=== PATIENT | male | born 1950 | race Caucasian/White ===

== ENCOUNTER 2019-05-29 07:01 | Outpatient (CLI) | payer MEDICARE, OTHER, SELFPAY ==
--- NOTE | 2019-05-29 | ECG_ITS ---
Measurements Intervals [place] Rate: 62 P: 5 [place]: 203 QRS: -7 QRSD: 101 T: 30 QT: 376 QTc: 385 Interpretive Statements SINUS RHYTHM NORMAL ECG Electronically Signed On 05-29-2019 9:27:18 MEDICAL INFORMATION OFFICER by Riley Gonzalez D.O.
[2019-05-29 07:45] LABS: Blood Urea Nitrogen 15 mg/dL (9-20); Carbon Dioxide 26 mmol/L (22-30); Chloride 98 mmol/L (98-107); Estimated Glomerular Filt Rate > 60; Glucose 103 mg/dL (75-110); Potassium 4.5 mmol/L (3.4-5.0); Sodium 134 mmol/L (137-145)
== END 2019-05-29 07:02 | disposition home or self-care (01) ==
PROVIDERS: PCP Family Medicine; Visit Provider Surgery Plastic and Reconstructive Surgery
DX: I10 Essential (primary) hypertension (principal)
CPT/HCPCS: 36415; 80048; 93005

== ENCOUNTER 2020-12-25 08:38 | Outpatient (CLI) | payer MEDICARE, OTHER, SELFPAY ==
--- NOTE | ~2020-12-25 | XR_ITS ---
XR hip BI wo pelvis DATE: 12/25/2020 09:01 INDICATION: Bilateral hip pain for 6 months TECHNIQUE: AP and lateral views of each hip COMPARISON: None FINDINGS: There is moderate spurring of both femoral heads consistent with moderate bilateral hip ost eoarthritis. No fracture, dislocation, avascular necrosis or bone destruction is detected. IMPRESSION: Moderate bilateral hip osteoarthritis Reviewed, dictated and finalized at location B.
== END 2020-12-25 08:39 | disposition home or self-care (01) ==
LOC: ANHIMG 08:44
PROVIDERS: PCP Family Medicine; Visit Provider Family Medicine
DX: M16.0 Bilateral primary osteoarthritis of hip (principal)
CPT/HCPCS: 73521

== ENCOUNTER 2021-08-01 01:30 | Day surgery (SDC) | payer MEDICARE, OTHER, SELFPAY ==
[2021-07-18 12:55] VITALS: BMI 27.1
[2021-08-01 11:33] VITALS: BP 155/75; PULSE 79; RESP 18; TEMP 35.9; O2SAT 98; BMI 42.9
--- NOTE | 2021-08-01 11:47 | WPDANESEPPF ---
Anes - Initial Pre Proc Eval Procedure: Operation Date: 08/01/21 13:00 Proposed Procedures p Screening Colonoscopy - Elton Mosley MD Date/Time: 08/01/21 11:47 Surgeon: Elton Mosley MD Pre Op Diagnosis: hx of colon polyps Patient Data Age: 70 Gender: M Height: 1.83 m Weight: 91 kg Allergies Allergy/AdvReac Type Severity Reaction Status Date / Time No Known Allergies Allergy Verified 08/01/21 11:54 Home Medications Medication Instructions Recorded Confirmed Type aspirin 81 mg tablet,delayed 81 mg PO DAILY 02/24/19 07/18/21 History release lisinopril 20 1 tablet PO DAILY #90 tablet 10/09/20 07/18/21 Rx mg-hydrochlorothiazide 25 mg tablet gabapentin 300 mg capsule 300 mg PO QID #120 cap 10/17/20 07/18/21 Rx atenolol 25 mg tablet See Rx Instructions .ROUTE 04/16/21 07/18/21 Rx .COMPLEX #90 tablet atorvastatin 40 mg tablet See Rx Instructions .ROUTE 04/16/21 07/18/21 Rx .COMPLEX #90 tablet fenofibrate 160 mg tablet See Rx Instructions .ROUTE 04/16/21 07/18/21 Rx .COMPLEX #90 tablet loratadine 10 mg tablet See Rx Instructions .ROUTE 04/16/21 07/18/21 Rx .COMPLEX #90 tablet naproxen 500 mg tablet See Rx Instructions .ROUTE 04/16/21 07/18/21 Rx .COMPLEX #180 tablet zolpidem 10 mg tablet 10 mg PO .qhs #30 tablet 07/16/21 07/18/21 Rx hydrochlorothiazide 25 mg PO DAILY 07/18/21 07/18/21 History Patient hx anesthesia problems: none Family hx anesthesia problems: none Results Review: All pre-operative results and documents have been reviewed as part of the pre-operative evaluation. [facility] Past Medical History Medical History Bilateral carpal tunnel syndrome Chronic insomnia Chronic right-sided low back pain with right-sided sciatica Essential (primary) hypertension Ganglion cyst of finger History of rectal polyps IFG (impaired fasting glucose) Metabolic syndrome Mixed hyperlipidemia Obesity BRITTANI (obstructive sleep apnea) Osteoarthritis of left knee Surgical History Surgical History History of hand surgery History of retinal tear Status post arthroscopy of right knee (~01/07/14) Family History Family History Father Hypertension Family history of malignant neoplasm Mother Hypertension Family history of malignant neoplasm Social History Social History Social History: Smoking status: Never smoker Second hand tobacco smoke exposure: No Alcohol intake: never Substance use: never Substance use type: does not use Living arrangements: with family Gender identity (if verbalized by the patient): Male Sexual Orientation (if Verbalized by the Patient): Straight or Heterosexual 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: No Anes - Eval Final PreProcedure Day of Procedure 08/01/21 11:47 Patient weight: overweight Heart: regular rate and rhythm Lungs: clear to auscultation and normal air movement Airway: Mallampati scale class II Neurological: alert and oriented Last oral intake: >/= 8 hours ASA classification: III Emergent: no Anesthetic plan: proceed Anesthesia type and monitoring: general GIVS and standard monitoring Results Review: All pre-operative results and documents have been reviewed as part of the pre-operative evaluation. Informed Consent: The patient's anesthetic plan and its attendant risks and benefits were discussed with the patient/family/POA. Questions were solicited and answers provided to the satisfaction of the patient/family/POA.
--- NOTE | 2021-08-01 11:55 | PM.HPGS ---
History of Present Illness History of Present Illness Consent: Risks, benefits, and alternatives have been discussed and questions answered. Patient agrees to proceed with procedure. Chief complaint: hx of colon polyps Narrative: Rickey Joshi is a 70 year old male Here for colon cancer screening. He had a tubular adenoma removed about 5 years ago. Review of Systems Review of Systems: All systems reviewed & are unremarkable except as noted in HPI and below PMFSH Past Medical History Medical History Bilateral carpal tunnel syndrome Chronic insomnia Chronic right-sided low back pain with right-sided sciatica Essential (primary) hypertension Ganglion cyst of finger History of rectal polyps IFG (impaired fasting glucose) Metabolic syndrome Mixed hyperlipidemia Obesity BRITTANI (obstructive sleep apnea) Osteoarthritis of left knee Surgical History Surgical History History of hand surgery History of retinal tear Status post arthroscopy of right knee (~01/07/14) Family History Family History Father Hypertension Family history of malignant neoplasm Mother Hypertension Family history of malignant neoplasm Social History Social History Social History: Smoking status: Never smoker Second hand tobacco smoke exposure: No Alcohol intake: never Substance use: never Substance use type: does not use Living arrangements: with family Gender identity (if verbalized by the patient): Male Sexual Orientation (if Verbalized by the Patient): Straight or Heterosexual 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: No Meds Home Medications and Allergies Home Medications Medication Instructions Recorded Confirmed Type aspirin 81 mg tablet,delayed 81 mg PO DAILY 02/24/19 08/01/21 History release lisinopril 20 1 tablet PO DAILY #90 tablet 10/09/20 08/01/21 Rx mg-hydrochlorothiazide 25 mg tablet gabapentin 300 mg capsule 300 mg PO QID #120 cap 10/17/20 08/01/21 Rx atenolol 25 mg tablet See Rx Instructions .ROUTE 04/16/21 08/01/21 Rx .COMPLEX #90 tablet atorvastatin 40 mg tablet See Rx Instructions .ROUTE 04/16/21 08/01/21 Rx .COMPLEX #90 tablet fenofibrate 160 mg tablet See Rx Instructions .ROUTE 04/16/21 08/01/21 Rx .COMPLEX #90 tablet loratadine 10 mg tablet See Rx Instructions .ROUTE 04/16/21 08/01/21 Rx .COMPLEX #90 tablet naproxen 500 mg tablet See Rx Instructions .ROUTE 04/16/21 08/01/21 Rx .COMPLEX #180 tablet zolpidem 10 mg tablet 10 mg PO .qhs #30 tablet 07/16/21 08/01/21 Rx hydrochlorothiazide 25 mg PO DAILY 07/18/21 08/01/21 History Allergies Allergy/AdvReac Type Severity Reaction Status Date / Time No Known Allergies Allergy Verified 08/01/21 11:54 Exam Resp: Auscultation: clear to auscultation bilaterally Cardio: Rate: regular rate Rhythm: regular rhythm GI: GI Palp: Yes Soft to palpation and No Tenderness to palpation present (GI) Assessment and Plan Assessment and plan (1) Colon cancer screening: Code(s): Z12.11 - Encounter for screening for malignant neoplasm of colon Status: Acute Assessment and Plan: Colonoscopy with possible biopsy or polypectomy or cautery or injection of substances.
[2021-08-01] MEDS: LACTATED RINGERS 1,000 ML 150 ML IV CONT (12:04)
[2021-08-01 12:38] VITALS: BP 139/69; PULSE 67; RESP 18; O2SAT 94
[2021-08-01 12:48] VITALS: BP 134/72; PULSE 66; RESP 20; O2SAT 96
[2021-08-01 12:58] VITALS: BP 144/84; PULSE 70; RESP 20; O2SAT 97
== END 2021-08-01 13:15 | disposition home or self-care (01) ==
PROVIDERS: PCP Family Medicine; Visit Provider Internal Medicine Gastroenterology
PROC: 0DJD8ZZ Inspection of Lower Intestinal Tract, Via Natural or Artificial Opening Endoscopic (ICD-10-PCS; CPT 45378; principal; 2021-08-01 13:00)
DX: Z12.11 Encounter for screening for malignant neoplasm of colon (principal); D12.5 Benign neoplasm of sigmoid colon; I10 Essential (primary) hypertension; E88.81 Metabolic syndrome and other insulin resistance; E78.2 Mixed hyperlipidemia; M17.12 Unilateral primary osteoarthritis, left knee; M54.41 Lumbago with sciatica, right side; G47.33 Obstructive sleep apnea (adult) (pediatric)
CPT/HCPCS: 45380; 88305; J2704; J7120

== ENCOUNTER 2022-11-20 08:02 | Outpatient (CLI) | payer MEDICARE, OTHER, SELFPAY ==
--- NOTE | ~2022-11-20 | US_ITS ---
EXAMINATION: US abdomen complete DATE: 11/20/2022 08:48 INDICATION: Unspecified abdominal pain TECHNIQUE: Multiple grayscale and Doppler ultrasound images of the abdomen were obtained. COMPARISON: None available FINDINGS: The head and body of the pancreas are normal. The pancreatic tail is obscured by bowel gas. The liver is normal with normal echogenicity and echotexture. No surface nodularity. Normal hepatope iesha flow in the main portal vein. The gallbladder is normal with no abnormal wall thickening, pericho lecystic fluid or stones. The normal common bile duct measures 5 mm. There was no sonographic Hunter sign. The visualized portions of the aorta and inferior vena cava are normal. The spleen is normal in appearance and measures 10.5 cm. The right kidney measures 11.7 x 6.4 x 6.1 c m. The left kidney measures 11 x 6.1 x 5.3 cm. The kidneys demonstrate normal parenchymal echogenicit y. There is no hydronephrosis. IMPRESSION: 1. No sonographic correlate for the patient's symptoms. Reviewed, dictated and finalized at location A.
== END 2022-11-20 08:03 | disposition home or self-care (01) ==
PROVIDERS: PCP Family Medicine; Visit Provider Internal Medicine Gastroenterology
DX: R10.9 Unspecified abdominal pain (principal)
CPT/HCPCS: 76700

== ENCOUNTER 2022-12-11 02:29 | Day surgery (SDC) | payer MEDICARE, OTHER, SELFPAY ==
[2022-11-28 12:25] VITALS: BMI 40.7
--- NOTE | 2022-12-10 18:16 | PM.HPGS ---
History of Present Illness History of Present Illness Consent: Risks, benefits, and alternatives have been discussed and questions answered. Patient agrees to proceed with procedure. Chief complaint: epigastric pain Narrative: Rickey Joshi is a 72 year old male Who?began having discomfort in the epigastric area that will last anywhere from couple of hours to almost all day.? At times it might feel little better after he eats.? It does not radiate.? He has nauseated with it but has not vomited.? He has lost weight but he has been trying to lose weight because he is wanting to get his knees replaced and the orthopedic surgeon requires him to lose 50 lb 1st.? He has lost about 20 lb so far.? Denies significant heartburn denies dysphagia. Review of Systems Review of Systems: All systems reviewed & are unremarkable except as noted in HPI and below PMFSH Past Medical History Medical History Bilateral carpal tunnel syndrome Chronic insomnia Chronic right-sided low back pain with right-sided sciatica Essential (primary) hypertension Ganglion cyst of finger History of rectal polyps IFG (impaired fasting glucose) Metabolic syndrome Mixed hyperlipidemia Obesity BRITTANI (obstructive sleep apnea) Osteoarthritis of left knee Surgical History Surgical History History of hand surgery History of retinal tear Status post arthroscopy of right knee (~01/07/14) Family History Family History Father Hypertension Family history of malignant neoplasm Mother Hypertension Family history of malignant neoplasm Social History Social History Social History: Smoking status: Never smoker Second hand tobacco smoke exposure: No Alcohol intake: current Substance use: never Substance use type: does not use Lack of Transportation: No Lack of Food: Never True Current Housing: I Have Housing Concerned About Future Housing: No Difficulty Paying Gas/Electric Bills: No Difficulty Paying for Meds: No Currently Unemployed: YES Education: Bachelor's Degree Difficulty w/ Childcare or Family Care: No Living arrangements: with family Occupation/Education: retired Gender identity (if verbalized by the patient): Male Sexual Orientation (if Verbalized by the Patient): Straight or Heterosexual 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: No Meds Home Medications and Allergies Home Medications Medication Instructions Recorded Confirmed Type aspirin 81 mg tablet,delayed 81 mg PO DAILY 02/24/19 11/28/22 History release atenolol 25 mg tablet See Rx Instructions .Route 04/16/21 12/11/22 Rx .COMPLEX #90 tabs atorvastatin 40 mg tablet See Rx Instructions .Route 04/16/21 11/28/22 Rx .COMPLEX #90 tabs fenofibrate 160 mg tablet See Rx Instructions .Route 04/16/21 11/28/22 Rx .COMPLEX #90 tabs loratadine 10 mg tablet See Rx Instructions .Route 04/16/21 11/28/22 Rx .COMPLEX #90 tabs hydrochlorothiazide 25 mg tablet 25 mg PO DAILY 07/18/21 11/28/22 History naproxen 500 mg tablet See Rx Instructions .Route 09/02/22 11/28/22 Rx .COMPLEX #180 tabs lisinopril 30 mg tablet 30 mg PO DAILY #90 tabs 11/01/22 11/28/22 Rx gabapentin 300 mg capsule 300 mg PO BID 11/28/22 11/28/22 History (Neurontin) zolpidem 12.5 mg tablet,extended 12.5 mg PO QHS #30 tabs 11/29/22 12/11/22 Rx release,multiphase pantoprazole 40 mg tablet,delayed 40 mg PO QAM #30 tabs 12/11/22 Rx release Allergies Allergy/AdvReac Type Severity Reaction Status Date / Time No Known Allergies Allergy Verified 12/11/22 07:42 Exam Const: General: alert Orientation/consciousness: patient oriented x3 Resp: Auscultation: clear to auscultation bilaterally Cardio: Rhythm: regular rhythm GI: GI Palp: Yes Soft to palpation a
[2022-12-11 07:44] VITALS: BP 141/63; PULSE 54; RESP 16; TEMP 36.2; O2SAT 99
[2022-12-11] MEDS: LACTATED RINGERS 1,000 ML 150 ML IV CONT (07:53)
--- NOTE | 2022-12-11 08:34 | WPDANESEPPF ---
Anes - Initial Pre Proc Eval Procedure: Operation Date: 12/11/22 09:00 Proposed Procedures p Esophagogastroduodenoscopy - Elton Mosley MD Date/Time: 12/11/22 08:34 Surgeon: Elton Mosley MD Pre Op Diagnosis: epigastric pain Patient Data Age: 72 Gender: M Height: 1.83 m Weight: 137.3 kg Last Vital Signs Temp 36.2 C L 12/11/22 07:44 Pulse 54 L 12/11/22 07:44 Resp 16 12/11/22 07:44 BP 141/63 H 12/11/22 07:44 Pulse Ox 99 12/11/22 07:44 O2 Del Method Room Air 12/11/22 07:44 Allergies Allergy/AdvReac Type Severity Reaction Status Date / Time No Known Allergies Allergy Verified 12/11/22 07:42 Home Medications Medication Instructions Recorded Confirmed Type aspirin 81 mg tablet,delayed 81 mg PO DAILY 02/24/19 11/28/22 History release atenolol 25 mg tablet See Rx Instructions .Route 04/16/21 12/11/22 Rx .COMPLEX #90 tabs atorvastatin 40 mg tablet See Rx Instructions .Route 04/16/21 11/28/22 Rx .COMPLEX #90 tabs fenofibrate 160 mg tablet See Rx Instructions .Route 04/16/21 11/28/22 Rx .COMPLEX #90 tabs loratadine 10 mg tablet See Rx Instructions .Route 04/16/21 11/28/22 Rx .COMPLEX #90 tabs hydrochlorothiazide 25 mg tablet 25 mg PO DAILY 07/18/21 11/28/22 History naproxen 500 mg tablet See Rx Instructions .Route 09/02/22 11/28/22 Rx .COMPLEX #180 tabs lisinopril 30 mg tablet 30 mg PO DAILY #90 tabs 11/01/22 11/28/22 Rx gabapentin 300 mg capsule 300 mg PO BID 11/28/22 11/28/22 History (Neurontin) zolpidem 12.5 mg tablet,extended 12.5 mg PO QHS #30 tabs 11/29/22 12/11/22 Rx release,multiphase Patient hx anesthesia problems: none Family hx anesthesia problems: none Results Review: All pre-operative results and documents have been reviewed as part of the pre-operative evaluation. [facility] Past Medical History Medical History Bilateral carpal tunnel syndrome Chronic insomnia Chronic right-sided low back pain with right-sided sciatica Essential (primary) hypertension Ganglion cyst of finger History of rectal polyps IFG (impaired fasting glucose) Metabolic syndrome Mixed hyperlipidemia Obesity BRITTANI (obstructive sleep apnea) Osteoarthritis of left knee Surgical History Surgical History History of hand surgery History of retinal tear Status post arthroscopy of right knee (~01/07/14) Family History Family History Father Hypertension Family history of malignant neoplasm Mother Hypertension Family history of malignant neoplasm Social History Social History Social History: Smoking status: Never smoker Second hand tobacco smoke exposure: No Alcohol intake: current Substance use: never Substance use type: does not use Lack of Transportation: No Lack of Food: Never True Current Housing: I Have Housing Concerned About Future Housing: No Difficulty Paying Gas/Electric Bills: No Difficulty Paying for Meds: No Currently Unemployed: YES Education: Bachelor's Degree Difficulty w/ Childcare or Family Care: No Living arrangements: with family Occupation/Education: retired Gender identity (if verbalized by the patient): Male Sexual Orientation (if Verbalized by the Patient): Straight or Heterosexual 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: No Anes - Eval Final PreProcedure Day of Procedure 12/11/22 08:34 Patient weight: morbidly obese Heart: regular rate and rhythm Lungs: clear to auscultation Airway: Mallampati scale class III Neurological: alert and oriented Last oral intake: >/= 8 hours ASA classification: III Emergent: no Anesthetic plan: proceed Anesthesia type and monitoring: general GIVS and standard monitoring Results Review: All pre-operative results and documents hav
[2022-12-11 09:05] VITALS: BP 145/75; PULSE 52; RESP 13; O2SAT 94
[2022-12-11 09:15] VITALS: BP 119/73; PULSE 52; RESP 20; O2SAT 97
[2022-12-11 09:25] VITALS: BP 121/72; PULSE 54; RESP 20; O2SAT 86
== END 2022-12-11 09:33 | disposition home or self-care (01) ==
PROVIDERS: PCP Family Medicine; Visit Provider Internal Medicine Gastroenterology
PROC: 0DJ08ZZ Inspection of Upper Intestinal Tract, Via Natural or Artificial Opening Endoscopic (ICD-10-PCS; CPT 43235; principal; 2022-12-11 09:00)
DX: K21.9 Gastro-esophageal reflux disease without esophagitis (principal); K22.2 Esophageal obstruction; K29.70 Gastritis, unspecified, without bleeding; Z79.82 Long term (current) use of aspirin; I10 Essential (primary) hypertension; E78.2 Mixed hyperlipidemia; G47.33 Obstructive sleep apnea (adult) (pediatric); F51.04 Psychophysiologic insomnia; E66.01 Morbid (severe) obesity due to excess calories; Z68.41 Body mass index [BMI] 40.0-44.9, adult
CPT/HCPCS: 43239; 87081; 88305; J2704; J7120

== ENCOUNTER 2023-03-12 02:33 | Day surgery (SDC) | payer MEDICARE, OTHER, SELFPAY ==
[2023-02-25 14:02] VITALS: BMI 27.0
--- NOTE | 2023-03-10 09:14 | SUR.PREOP ---
Patient called regarding upcoming procedure. Reviewed preop instructions, appointment times, and procedure prep.
--- NOTE | 2023-03-11 11:20 | PM.HPGS ---
History of Present Illness History of Present Illness Consent: Risks, benefits, and alternatives have been discussed and questions answered. Patient agrees to proceed with procedure. Chief complaint: Arias's esophagus with low grade dysplasia Narrative: Rickey Joshi is a 72 year old male who 3 months ago underwent endoscopy and was found have Arias's mucosa with low-grade dysplasia. He also had superficial gastric ulcerations at that time. Review of Systems Review of Systems: All systems reviewed & are unremarkable except as noted in HPI and below PMFSH Past Medical History Medical History Bilateral carpal tunnel syndrome Chronic insomnia Chronic right-sided low back pain with right-sided sciatica Essential (primary) hypertension Ganglion cyst of finger History of rectal polyps IFG (impaired fasting glucose) Metabolic syndrome Mixed hyperlipidemia Obesity BRITTANI (obstructive sleep apnea) Osteoarthritis of left knee Surgical History Surgical History History of hand surgery History of retinal tear Status post arthroscopy of right knee (~01/07/14) Family History Family History Father Hypertension Family history of malignant neoplasm Mother Hypertension Family history of malignant neoplasm Social History Social History Social History: Smoking status: Never smoker Second hand tobacco smoke exposure: No Alcohol intake: current Substance use: never Substance use type: does not use Lack of Transportation: No Lack of Food: Never True Current Housing: I Have Housing Concerned About Future Housing: No Difficulty Paying Gas/Electric Bills: No Difficulty Paying for Meds: No Currently Unemployed: YES Education: Bachelor's Degree Difficulty w/ Childcare or Family Care: No Living arrangements: with family Occupation/Education: retired Gender identity (if verbalized by the patient): Male Sexual Orientation (if Verbalized by the Patient): Straight or Heterosexual 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: No Meds Home Medications and Allergies Home Medications Medication Instructions Recorded Confirmed Type aspirin 81 mg tablet,delayed 81 mg PO DAILY 02/24/19 03/12/23 History release atenolol 25 mg tablet See Rx Instructions .Route 04/16/21 03/12/23 Rx .COMPLEX #90 tabs atorvastatin 40 mg tablet See Rx Instructions .Route 04/16/21 03/12/23 Rx .COMPLEX #90 tabs fenofibrate 160 mg tablet See Rx Instructions .Route 04/16/21 03/12/23 Rx .COMPLEX #90 tabs hydrochlorothiazide 25 mg tablet 25 mg PO DAILY 07/18/21 03/12/23 History lisinopril 30 mg tablet 30 mg PO DAILY #90 tabs 02/13/23 03/12/23 Rx gabapentin 300 mg capsule 300 mg PO TID 90 days #270 caps 02/14/23 03/12/23 Rx (Neurontin) loratadine 10 mg tablet See Rx Instructions .Route 02/14/23 03/12/23 Rx .COMPLEX #90 tabs meloxicam 15 mg tablet 15 mg PO DAILY #90 tabs 02/17/23 03/12/23 Rx pantoprazole 40 mg tablet,delayed 40 mg PO QAM #90 tabs 02/18/23 03/12/23 Rx release zolpidem 12.5 mg tablet,extended 12.5 mg PO QHS #30 tabs 02/28/23 03/12/23 Rx release,multiphase Allergies Allergy/AdvReac Type Severity Reaction Status Date / Time No Known Allergies Allergy Verified 03/12/23 06:26 Exam Const: General: alert Orientation/consciousness: patient oriented x3 Resp: Auscultation: clear to auscultation bilaterally Cardio: Rhythm: regular rhythm GI: GI Palp: Yes Soft to palpation and No Tenderness to palpation present (GI) Neuro: General: patient oriented x3 Assessment and Plan Assessment and plan (1) Arias's esophagus with low grade dysplasia: Code(s): K22.710 - Arias's esophagus with low grade dysplasia Status: Acute Assessment and Plan: EGD
[2023-03-12 06:28] VITALS: BP 121/59; PULSE 59; RESP 18; TEMP 35.6; O2SAT 98
[2023-03-12] MEDS: LACTATED RINGERS 1,000 ML 150 ML IV CONT (06:38)
--- NOTE | 2023-03-12 07:19 | WPDANESEPPF ---
Anes - Initial Pre Proc Eval Procedure: Operation Date: 03/12/23 07:30 Proposed Procedures p Esophagogastroduodenoscopy - Elton Mosley MD Date/Time: 03/12/23 07:19 Surgeon: Elton Mosley MD Pre Op Diagnosis: Arias's esophagus with low grade dysplasia Patient Data Age: 72 Gender: M Height: 1.83 m Weight: 135.8 kg Last Vital Signs Temp 96.0 F L 03/12/23 06:28 Pulse 59 L 03/12/23 06:28 Resp 18 03/12/23 06:28 BP 121/59 L 03/12/23 06:28 Pulse Ox 98 03/12/23 06:28 O2 Del Method Room Air 03/12/23 06:28 Allergies Allergy/AdvReac Type Severity Reaction Status Date / Time No Known Allergies Allergy Verified 03/12/23 06:26 Home Medications Medication Instructions Recorded Confirmed Type aspirin 81 mg tablet,delayed 81 mg PO DAILY 02/24/19 03/12/23 History release atenolol 25 mg tablet See Rx Instructions .Route 04/16/21 03/12/23 Rx .COMPLEX #90 tabs atorvastatin 40 mg tablet See Rx Instructions .Route 04/16/21 03/12/23 Rx .COMPLEX #90 tabs fenofibrate 160 mg tablet See Rx Instructions .Route 04/16/21 03/12/23 Rx .COMPLEX #90 tabs hydrochlorothiazide 25 mg tablet 25 mg PO DAILY 07/18/21 03/12/23 History lisinopril 30 mg tablet 30 mg PO DAILY #90 tabs 02/13/23 03/12/23 Rx gabapentin 300 mg capsule 300 mg PO TID 90 days #270 caps 02/14/23 03/12/23 Rx (Neurontin) loratadine 10 mg tablet See Rx Instructions .Route 02/14/23 03/12/23 Rx .COMPLEX #90 tabs meloxicam 15 mg tablet 15 mg PO DAILY #90 tabs 02/17/23 03/12/23 Rx pantoprazole 40 mg tablet,delayed 40 mg PO QAM #90 tabs 02/18/23 03/12/23 Rx release zolpidem 12.5 mg tablet,extended 12.5 mg PO QHS #30 tabs 02/28/23 03/12/23 Rx release,multiphase Patient hx anesthesia problems: none Family hx anesthesia problems: none Results Review: All pre-operative results and documents have been reviewed as part of the pre-operative evaluation. [facility] Past Medical History Medical History Bilateral carpal tunnel syndrome Chronic insomnia Chronic right-sided low back pain with right-sided sciatica Essential (primary) hypertension Ganglion cyst of finger History of rectal polyps IFG (impaired fasting glucose) Metabolic syndrome Mixed hyperlipidemia Obesity BRITTANI (obstructive sleep apnea) Osteoarthritis of left knee Surgical History Surgical History History of hand surgery History of retinal tear Status post arthroscopy of right knee (~01/07/14) Family History Family History Father Hypertension Family history of malignant neoplasm Mother Hypertension Family history of malignant neoplasm Social History Social History Social History: Smoking status: Never smoker Second hand tobacco smoke exposure: No Alcohol intake: current Substance use: never Substance use type: does not use Lack of Transportation: No Lack of Food: Never True Current Housing: I Have Housing Concerned About Future Housing: No Difficulty Paying Gas/Electric Bills: No Difficulty Paying for Meds: No Currently Unemployed: YES Education: Bachelor's Degree Difficulty w/ Childcare or Family Care: No Living arrangements: with family Occupation/Education: retired Gender identity (if verbalized by the patient): Male Sexual Orientation (if Verbalized by the Patient): Straight or Heterosexual 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: No Anes - Eval Final PreProcedure Day of Procedure 03/12/23 07:19 Patient weight: morbidly obese Heart: regular rate and rhythm Lungs: clear to auscultation Airway: Mallampati scale class III Neurological: alert and oriented Last oral intake: >/= 8 hours ASA classification: III Emergent: no Anesthetic plan: proceed Anesthesia type and monitoring: general G
[2023-03-12 07:40] VITALS: BP 112/67; PULSE 56; RESP 19; O2SAT 96
[2023-03-12 07:50] VITALS: BP 113/70; PULSE 55; RESP 17; O2SAT 98
[2023-03-12 08:00] VITALS: BP 111/66; PULSE 53; RESP 18; O2SAT 97
== END 2023-03-12 08:10 | disposition home or self-care (01) ==
PROVIDERS: PCP Family Medicine; Visit Provider Internal Medicine Gastroenterology
PROC: 0DJ08ZZ Inspection of Upper Intestinal Tract, Via Natural or Artificial Opening Endoscopic (ICD-10-PCS; CPT 43235; principal; 2023-03-12 07:30)
DX: K22.70 Barrett's esophagus without dysplasia (principal); K29.50 Unspecified chronic gastritis without bleeding; I10 Essential (primary) hypertension; E78.2 Mixed hyperlipidemia; G47.33 Obstructive sleep apnea (adult) (pediatric); Z79.82 Long term (current) use of aspirin; E66.01 Morbid (severe) obesity due to excess calories; Z68.41 Body mass index [BMI] 40.0-44.9, adult
CPT/HCPCS: 43239; 88305; J2704; J7120

== ENCOUNTER 2023-05-09 10:36 | Outpatient (CLI) | payer MEDICARE, OTHER, SELFPAY ==
--- NOTE | ~2023-05-09 | XR_ITS ---
Left Knee Technique: AP, lateral, and sunrise views were obtained. Clinical History: Osteoarthritis Findings: No fracture or dislocation is seen. Osseous alignment is anatomic. There is moderate degene rative change of the patellofemoral compartment. There is mild to moderate degenerative change of the medial lateral compartment.. Soft tissues are unremarkable. No joint effusion is seen. Impression: Tricompartmental osteoarthritis, as detailed above. Reviewed, dictated and finalized at location M. WORK SPECIALIST Impression: Tricompartmental osteoarthritis, as detailed above.
--- NOTE | ~2023-05-09 | XR_ITS ---
Right Knee Technique: AP, lateral, and sunrise views were obtained. Clinical History: Osteoarthritis Findings: No fracture or dislocation is seen. Osseous alignment is anatomic. There is moderate tricom partmental osteoarthritis. Soft tissues are unremarkable. No joint effusion is seen. Impression: Moderate tricompartmental osteoarthritis. Reviewed, dictated and finalized at [facility]. EXTERMINATOR Impression: Moderate tricompartmental osteoarthritis.
== END 2023-05-09 10:37 | disposition home or self-care (01) ==
LOC: ANHIMG 10:49
PROVIDERS: PCP Family Medicine; Visit Provider Orthopaedic Surgery
DX: M17.0 Bilateral primary osteoarthritis of knee (principal)
CPT/HCPCS: 73562; 73564

== ENCOUNTER 2023-09-03 08:20 | Outpatient (CLI) | payer MEDICARE, OTHER, SELFPAY ==
--- NOTE | ~2023-09-03 | MR_ITS ---
EXAMINATION: MR cervical spine wo con DATE: 09/03/2023 08:54 INDICATION: Neck pain. Radiculopathy, cervical region. TECHNIQUE: Magnetic resonance imaging (MRI) of the cervical spine was performed without intravenous c ontrast. COMPARISON: None FINDINGS: There is 10 degrees levoscoliosis of the cervicothoracic spine. There is mild kyphosis of c ervical spine. Vertebral body heights are normal. There is mildly decreased disc height at C3-C4 and C4-C5, severely decreased disc height at C5-C6 and C6-C7, and mildly decreased disc height at C7-T1. The spinal cord signal intensity is normal. The following disc levels are specifically discussed: C2-C3: There is a central extrusion. There is mild bilateral uncovertebral joint osteoarthritis. Ther e is severe right and moderate left facet joint osteoarthritis. There is no neural foraminal stenosis . There is no central canal stenosis. C3-C4: The disc is bulging. There is severe bilateral uncovertebral joint osteoarthritis. There is se zia bilateral facet joint osteoarthritis. There is moderate bilateral neural foraminal stenosis. The re is mild central canal stenosis. C4-C5: The disc is bulging. There is severe right and mild left uncovertebral joint osteoarthritis. T here is severe right and mild left facet joint osteoarthritis. There is severe right and mild left ne ural foraminal stenosis. There is mild central canal stenosis with ventral indentation of the spinal cord. C5-C6: The disc is bulging. There is severe bilateral uncovertebral joint osteoarthritis. There is se zia right and moderate left facet joint osteoarthritis. There is moderate bilateral neural foraminal stenosis. There is mild central canal stenosis. C6-C7: The disc is bulging. There is severe bilateral uncovertebral joint osteoarthritis. There is se zia bilateral facet joint osteoarthritis. There is moderate bilateral neural foraminal stenosis. The re is mild central canal stenosis. C7-T1: There is a central protrusion. There is moderate right uncovertebral joint osteoarthritis. The re is severe bilateral facet joint osteoarthritis. There is mild bilateral neural foraminal stenosis. There is no central canal stenosis. IMPRESSION: 1. Severe cervical spondylosis. Reviewed, dictated and finalized at location A.
== END 2023-09-03 08:21 ==
LOC: MICIMG 08:21
PROVIDERS: PCP Family Medicine; Visit Provider Family Medicine
DX: M43.02 Spondylolysis, cervical region (principal)
CPT/HCPCS: 72141

== ENCOUNTER 2023-11-11 07:04 | Outpatient (CLI) | payer MEDICARE, OTHER, SELFPAY ==
--- NOTE | ~2023-11-11 | XR_ITS ---
XR knee LT min 4V Ordering provider: RUPESH Kitchen History: . M17.12 - Unilateral primary osteoarthritis, left knee . Comparison: May 09, 2023 FINDINGS: BONES: No acute fracture or dislocation. JOINT SPACES: Narrowing of the medial compartment. Marginal osteophytes and the left. SOFT TISSUES: Normal. IMPRESSION: No acute osseous abnormality left knee. Severe osteoarthritic changes. Reviewed, dictated and finalized at location A.
--- NOTE | ~2023-11-11 | XR_ITS ---
XR knee RT min 4V Ordering provider: RUPESH Kitchen History: . M17.11 - Unilateral primary osteoarthritis, right knee . Comparison: May 09, 2023 FINDINGS: BONES: No acute fracture or dislocation. JOINT SPACES: Narrowing of the medial compartment. Osteophytes in the patella with narrowing of the j oint space. SOFT TISSUES: Normal. IMPRESSION: No acute osseous abnormality right knee. Severe osteoarthritic changes. Reviewed, dictated and finalized at location A.
== END 2023-11-11 07:05 | disposition home or self-care (01) ==
LOC: ANHIMG 07:09
PROVIDERS: PCP Family Medicine; Visit Provider Physician Assistant Surgical
DX: M17.0 Bilateral primary osteoarthritis of knee (principal)
CPT/HCPCS: 73564; 92507

== ENCOUNTER 2023-12-27 13:37 | Inpatient (IN) | payer MEDICARE, OTHER, SELFPAY ==
[2023-12-27] VITALS (72 sets, daily range): BP systolic 52–140; BP diastolic 33–130; PULSE 69–115; RESP 11–21; TEMP 36.3–37.7; O2SAT 78–99; BMI 38.9
--- NOTE | ~2023-12-27 | XR_ITS ---
XR chest port-a-cath/central Ordering provider: Romuol Licea MD History: 73 years Male with . central line . Comparison: None. FINDINGS: MEDIASTINUM: The cardiac silhouette is not enlarged. Congestive sofia. Right central line with the tip in the right atrium. LUNGS: No infiltrates, effusions or pneumothorax. Prominent markings bilaterally OTHER: No free air under the diaphragm. IMPRESSION: Prominent markings bilaterally. Otherwise, no acute cardiopulmonary pathology. Reviewed, dictated and finalized at location A.
--- NOTE | ~2023-12-27 | XR_ITS ---
XR chest 1V portable 12/28/2023 05:24 Indication: Hypoxia Procedure: AP portable chest Comparison: 12/27/2023 Findings: Heart size normal. Right IJ central line tip in the SVC. No focal air space disease, pulmon dora edema, pleural effusion or suspected pneumothorax. Impression: 1: No acute cardiopulmonary disease. Reviewed, dictated and finalized at location B. Impression: 1: No acute cardiopulmonary disease.
--- NOTE | ~2023-12-27 | CT_ITS ---
CTA chest abdomen pelvis Ordering provider: Romulo Licea MD History: . ab pain, hypotension . Comparison: None. Technique: CT angiogram chest was performed following timed intravenous injection of contrast. Thin s lice axial images and reformatted coronal images were obtained. Three dimensional reformatted images of the chest were also obtained using a [employer] workstation. Also, CT of the abdomen and pelvis was pe rformed with IV contrast. . Automated exposure control and iterative reconstruction technique were e mployed. The dose-length product was 2076.47 mGy-cm. 100 mL Omnipaque 350 was given IV. FINDINGS: CHEST: --PULMONARY ARTERIES: No pulmonary embolus. --VISUALIZED THORACIC INLET: Normal. --MEDIASTINUM: Aorta/coronary arteries: Mild atheromatous disease. Ascending aorta measures 4 seen. Heart/other: The heart is not enlarged. Lymph nodes: No mediastinal or hilar adenopathy. --LUNGS: No pulmonary nodules or masses. No infiltrates or effusions. No pneumothorax. Dependent atelectatic c hanges. --MUSCULOSKELETAL: Bones: Age appropriate degenerative changes of the spine. Superficial soft tissues: The superficial soft tissues are normal. ABDOMEN/PELVIS: --MUSCULOSKELETAL: Superficial soft tissues: The superficial soft tissues are normal. Bones: Age appropriate degenerative changes of the spine. --UPPER ABDOMINAL ORGANS: Liver: Normal. Gallbladder: Normal. Spleen: Normal. Stomach/duodenum: Sliding hiatus hernia. Pancreas: Normal. Adrenals: Normal. Kidneys: Normal. --PELVIC ORGANS: The bladder is normal. No bladder stones. --BOWEL AND MESENTERY: Colon: No evidence of.. Fecal material is loaded in the colon suggestive of constipation. Normal appe ndix. Small Bowel: Normal. No obstruction. Peritoneum/mesentery: No free air or free fluid. No mesenteric lymphadenopathy. --RETROPERITONEUM: Mild atheromatous disease of the abdominal aorta. No retroperitoneal lymphadenop athy. IMPRESSION: CHEST: 1. No pulmonary embolism. 2. No acute cardiopulmonary pathology. ABDOMEN/PELVIS: 1. No evidence of diverticulitis, appendicitis or intestinal obstruction. 2. Constipation. 3. Sliding hiatus hernia. Reviewed, dictated and finalized at location A.
--- NOTE | 2023-12-27 13:49 | ECG_ITS ---
Test Date: 2023-12-27 14:17:41 Measurements Intervals [place] Rate: 71 P: 10 VA: 204 QRS: -4 QRSD: 97 T: 41 QT: 377 QTc: 410 Interpretive Statements SINUS RHYTHM BORDERLINE AV CONDUCTION DELAY BASELINE ARTIFACT- I, III, AVR, AVL, AVF BORDERLINE ECG No previous ECG available for comparison Electronically Signed On 12-27-2023 17:14:22 CDT by Riley Gonzalez D.O.
--- NOTE | 2023-12-27 13:55 | ED.GENADULT ---
HPI - General Adult General Chief complaint: Syncope Stated complaint: SYNCOPY Time Seen by Provider: 12/27/23 13:39 History of Present Illness HPI narrative: 73-year-old male presenting to the emergency department for evaluation for syncopal episode. Patient states when he woke up this morning he had no complaints. Patient states he was using the bathroom and felt that he was having some issues with constipation. Patient states he was bearing down hard. Patient states he then began having intense abdominal pain and did have a syncopal episode. Patient does have history of hypertension but arrives to the emergency department hypotensive. Patient does describe abdominal pain. Patient denies any associated chest pain or shortness of breath. Related Data Home Medications Medication Instructions Recorded Confirmed aspirin 81 mg tablet,delayed 81 mg PO DAILY 02/24/19 11/25/23 release hydrochlorothiazide 25 mg tablet 25 mg PO DAILY 07/18/21 11/25/23 naproxen 500 mg tablet 500 mg PO BID 05/16/23 11/25/23 Allergies Allergy/AdvReac Type Severity Reaction Status Date / Time No Known Allergies Allergy Verified 12/17/23 13:19 Review of Systems Review of Systems: All systems reviewed & are unremarkable except as noted in HPI and below PMFSH Past Medical History Medical History Bilateral carpal tunnel syndrome Chronic insomnia Chronic right-sided low back pain with right-sided sciatica Essential (primary) hypertension Ganglion cyst of finger History of rectal polyps IFG (impaired fasting glucose) Metabolic syndrome Mixed hyperlipidemia Obesity BRITTANI (obstructive sleep apnea) Osteoarthritis of left knee Surgical History Surgical History History of hand surgery History of retinal tear Status post arthroscopy of right knee (~01/07/14) Family History Family History Father Hypertension Family history of malignant neoplasm Mother Hypertension Family history of malignant neoplasm Social History Social History Social History: Smoking status: Never smoker Second hand tobacco smoke exposure: No Alcohol intake: current Alcohol use details: Occasionally Substance use: never Substance use type: does not use Do You Feel Safe in your Home?: Yes Lack of Transportation: No Lack of Food: Never True Current Housing: I Have Housing Concerned About Future Housing: No Difficulty Paying Gas/Electric Bills: No Difficulty Paying for Meds: No Currently Unemployed: No Education: Bachelor's Degree Difficulty w/ Childcare or Family Care: No Living arrangements: with family Occupation/Education: retired Gender identity (if verbalized by the patient): Male Sexual Orientation (if Verbalized by the Patient): Straight or Heterosexual 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: No Exam Narrative: APPEARANCE: Uncomfortable appearing on arrival, ill-appearing HEAD: normocephalic, atraumatic. EYES: PERRLA/EOMI, conjunctivae clear. NOSE: Normal no drainage EARS:TMS clear with good light reflex. THROAT: Pharynx clear, no exudate. NECK: Supple. No adenopathy, no masses. RESPIRATORY: Airway patent, respirations nonlabored. Clear to auscultation bilaterally, no rales, rhonchi, wheezing. CARDIOVASCULAR: Regular rate and rhythm without murmurs rubs or gallops. ABDOMINAL: Abdominal tenderness and distention upon arrival to the emergency department. MUSCULOSKELETAL: Moves all extremities. Strength/ROM intact, No edema, No calf tenderness. NEURO: Alert. Cranial nerves II through XII intact. Good gait. Good coordination SKIN: Warm, dry. Normal Color Course Course Emergency Course: Imaging was negative for aortic injury, patient had significant bowel movements in the emergency
[2023-12-27 14:03] LABS: Glucose Point of Care 238 mg/dl (65-105)
[2023-12-27 14:08] LABS: Basophils Absolute Auto 0.1 K/mm3 (0.0-0.1); Basophils Percent Auto 0.4 % (0.2-1.2); Eosinophils Absolute Auto 0.1 K/mm3 (0-0.3); Eosinophils Percent Auto 0.6 % (0-4.4); Hematocrit 45.8 % (42.0-52.0); Hemoglobin 16.1 g/dL (14.0-18.0); Immature Granulocyte Absolute 0.06 K/mm3 (0.00-0.031); Immature Granulocyte Percent A 0.5 % (0-0.5); Lymphocytes Absolute Auto 1.72 K/mm3 (0.9-3.2); Lymphocytes Percent Auto 14.9 % (18.3-44.2); Mean Corpuscular HGB Conc 35.2 g/dl (32-36); Mean Corpuscular Hemoglobin 30.8 pg (26-34); Mean Corpuscular Volume 87.7 fl (80-100); Monocytes Absolute Auto 0.3 K/mm3 (0.1-0.6); Monocytes Percent Auto 2.4 % (2.6-8.5); Neutrophils Absolute Auto 9.4 K/mm3 (1.3-6.7); Neutrophils Percent Auto 81.2 % (45.5-73.1); Platelet Count Result 219 k/mm3 (150-375); Red Blood Count 5.22 M/mm3 (4.6-6.20); Red Cell Distribution Width 12.9 % (11.5-14.5); White Blood Count 11.6 K/mm3 (4.5-10.0)
[2023-12-27 14:17] LABS: INR 1.6; Prothrombin Time 19.7 Seconds (11.1-14.7)
[2023-12-27 14:19] LABS: Alanine Aminotransferase 29 U/L (6-50); Albumin Level 4.6 g/dL (3.5-5.1); Alkaline Phosphatase 110 U/L (38-126); Anion Gap 20 mmol/L (4-12); Aspartate Amino Transferase 62 U/L (17-59); Bilirubin,Total 1.3 mg/dL (0.2-1.3); Blood Urea Nitrogen 26 mg/dL (9-20); Calcium 9.5 mg/dL (8.4-10.2); Carbon Dioxide 17 mmol/L (22-30); Chloride 89 mmol/L (98-107); Estimated CRCL calculation 38 ml/min; Estimated Glomerular Filt Rate 30; Glucose 229 mg/dL (65-110); Magnesium 2.7 mg/dL (1.6-2.3); Potassium 3.7 mmol/L (3.4-5.0); Sodium 126 mmol/L (137-145)
[2023-12-27 14:24] LABS: Lactic Acid Reflex 6.9 mmol/L (0.7-2.0)
[2023-12-27 14:28] LABS: NT Pro B Type Natriuretic Pept 244 pg/mL (19.9-100)
[2023-12-27] MEDS: SODIUM CHLORIDE 0.9% IV 1,000 ML 999 ML IV CONT ×4 (14:36→18:58)
[2023-12-27] MEDS: ONDANSETRON INJ 4 MG/2 ML VIAL IV PUSH (14:51)
--- NOTE | 2023-12-27 15:02 | PC.NURSE ---
Pt arrived to ED room 11 via ems pale, cool, diaphoretic. Pt doubled over in stretcher c/o abd pain. Ems reports pt had syncopal event while trying to have BM. Pt had large BM upon arrival to ED. Pt reported pain still present after BM. Also c/o nausea. Pt states he is more comfortable when laying on side. Pt taken to CT with this RN and when arrived back to room 11, pt had another BM and episode of emesis. Linen changed, pt cleaned, MD made aware of pt nausea, 4 mg zofran IVP stat VORB from Dr. Licea. Pt reports another need to have BM. Pt cleaned and linen changed again. Pt apologizing for multiple BMs. Pt repositioned in bed, call light in reach.
[2023-12-27 17:05] LABS: Reflex Lactic Acid Yes or No Add Lactic
--- NOTE | 2023-12-27 17:57 | PC.NURSE ---
Pt continuing to have BMs and bp dropping again. made aware. Dr. Vinayak GARAY to initiate NS maintenance fluids NS @125 mL/hr and to encourage PO fluids.
[2023-12-27 18:09] LABS: Lactic Acid Reflex 4.5 mmol/L (0.7-2.0)
[2023-12-27] MEDS: SODIUM CHLORIDE 0.9% IV 1,000 ML 125 ML IV CONT (18:14)
[2023-12-27 18:34] LABS: Influenza A QL RT-PCR Negative (Negative); Influenza B QL RT-PCR Negative (Negative); RSV RNA, RT-PCR Negative (Negative); SARS-CoV-2 RNA PCR Negative (Negative)
--- NOTE | 2023-12-27 18:53 | PC.NURSE ---
Dr. Vinayak GARAY to administer 1L NS bolus IV stat
--- NOTE | 2023-12-27 19:03 | PC.NURSE ---
Pt reports baseline difficulty urinating, tried to urinate earlier and was unable to d/t people in the room. Bladder scan showed 380mL. Pt states will try to urinate again.
[2023-12-27 19:19] LABS: Troponin I < 0.012 ng/mL (0.000-0.034)
--- NOTE | 2023-12-27 19:20 | PC.NURSE ---
Dr. Licea at bedside going to start central line, Pt and updated.
[2023-12-27] MEDS: LORazepam INJ (*CRX) 2 MG/ML VIAL 0.5 MG IV PUSH (19:24)
--- NOTE | 2023-12-27 19:25 | PC.NURSE ---
Assumed care of patient and received report from Halley RN. This RN at bedside with Dr. Licea for central line placement.
--- NOTE | 2023-12-27 19:38 | PC.NURSE ---
Central line placed. Patient tolerated procedure well.
[2023-12-27] MEDS: NOREPINEPHRINE 8 MG/D5W 250 ML 8 MG/250 ML BAG 9.38 MG IV CONT (20:28)
--- NOTE | 2023-12-27 20:29 | PC.NURSE ---
EDP Dr. Licea gave order for OK to use central line
[2023-12-27 21:27] LABS: Lactic Acid 2.4 mmol/L (0.7-2.0)
[2023-12-27 21:36] LABS: Procalcitonin 14.9 ng/mL
[2023-12-27] MEDS: CEFEPIME 1 GM/NS 50 ML 1 GM/50 ML BAG IVPB (21:51)
--- NOTE | 2023-12-27 22:03 | PC.NURSE ---
Report received from JAMAL Baker in ER at 2203 on 12/27/23.
[2023-12-27] MEDS: metroNIDAZOLE 500 MG/ISO 100ML 500 MG/100 ML BAG 100 MG IVPB (22:27)
--- NOTE | 2023-12-27 23:00 | PC.NURSE ---
This patient, Rickey Joshi, was admitted to Intensive Care Unit-8. Patient/family oriented to hospital policies and general routines including ID bracelet, bed and alarms, visiting hours, pain management, procedures, bathroom and other care routines, personal items, smoking policy, room service/diet, and visiting hours. Information on how to activate the Rapid Response Team has been discussed. Patient/Family are encouraged to report perceived risks to care and to ask questions if they do not understand what they are told or what they should do.
[2023-12-27 23:40] LABS: Estimated CRCL calculation 36 ml/min; Estimated Glomerular Filt Rate 27
[2023-12-28] VITALS (81 sets, daily range): BP systolic 75–161; BP diastolic 37–100; PULSE 64–133; RESP 15–23; TEMP 37–38.8; O2SAT 92–98
--- NOTE | 2023-12-28 02:20 | PM.IMHP ---
H&P: HPI History of Present Illness Date/Time: 12/28/23 02:20 Chief Complaint: Passed out while trying to have a bowel movement Narrative: 73-year-old male with past medical history of essential hypertension, GERD, obesity and obstructive sleep apnea who presented to the ER after having syncopal episode while trying to have a bowel movement. Patient reports that he has issues with constipation. He reports that his stools are usually hard. He does admit to having hemorrhoids. The patient is alert orient x3 but is confused as to timing of his recent symptoms and his interactions with medical providers. He reports that when he woke up a on the morning of the he felt as if he needed to have a bowel movement. He used a suppository since he had not bowel movement about 5 days. He was still unable to have a bowel movement and was having onset of severe abdominal pain. At the time my evaluation the majority of his pain is in the right lower quadrant. He tried to bear down to produce a bowel movement and had a syncopal episode. On EMS arrival to the patient's residence his blood pressure 60/20. Patient had fluid bolus initiated in the field when patient arrived to the hospital his blood pressures were still in the 60'ssystolic. Given his severe intense abdominal pain a CT of the chest abdomen pelvis was performed to rule dissection which was negative. CT did show evidence of constipation. Shortly after arrival to the ER the patient had a large bowel movement followed by loose stools. Then had multiple episodes of diarrhea. Patient's blood pressures did not respond despite receiving 4 L of IV fluids. Patient subsequently had a IJ central line placed and was started on Levophed. Patient's labs did show leukocytosis but patient has been afebrile. He was started on cefepime and Flagyl in the ER. Given the number of diarrheal stools the patient had C diff testing was ordered. Several hours after patient arrived to the ICU patient began having moderate amount of maroon blood from his rectum. He also developed fever with a T-max of 101.7? after arrival to the ICU. He had blood cultures obtained in the ER. He has had at least 3 loose bowel movements since arrival to the ICU. He did receive a course of azithromycin a week or so ago to treat a sore throat. He denies any recent travel. He has no known exposures to contaminated water or food. He denies ill contacts. The patient reports that his abdominal pain was in the lower quadrants but on my exam patient had reproducible abdominal pain to the right lower quadrant. At the time of my evaluation The patient was alert and oriented x3 but is was having transient episodes of giving variable answers. Review of Systems Review of Systems: 12 systems were reviewed with pertinent positives and negatives per HPI. Except as documented in the HPI, all other systems were reviewed and are negative. Although the patient is mildly confused and distracted due to GI symptoms at the time of my evaluation. [facility] Past Medical History Medical History Bilateral carpal tunnel syndrome Chronic insomnia Chronic right-sided low back pain with right-sided sciatica Essential (primary) hypertension Ganglion cyst of finger History of rectal polyps IFG (impaired fasting glucose) Metabolic syndrome Mixed hyperlipidemia Obesity BRITTANI (obstructive sleep apnea) Osteoarthritis of left knee Surgical History Surgical History History of hand surgery History of retinal tear Status post arthroscopy of right knee (~01/07/14) Family History Family History Father Hypertension Family history of malignant neoplasm Mother Hypertension Family history of malignant neoplasm Social History Social History (Updated 12/28/23 @ 09:32 by Noelle Ojeda DO) Social H
[2023-12-28 02:23] LABS: Hematocrit 38.8 % (42.0-52.0); Hemoglobin 13.9 g/dL (14.0-18.0)
[2023-12-28 02:40] LABS: IFOB Positive Control Positive; Immunochemical Fecal Occult Bl Positive (N)
--- NOTE | 2023-12-28 03:06 | ECG_ITS ---
Test Date: 2023-12-28 03:13:51 Measurements Intervals [place] Rate: 102 P: 10 MS: 238 QRS: 25 QRSD: 98 T: 61 QT: 308 QTc: 403 Interpretive Statements SINUS TACHYCARDIA WITH FIRST DEGREE AV BLOCK LOW QRS VOLTAGE IN PRECORDIAL LEADS BORDERLINE ST-T WAVE ABNORMALITY- HIGH LATERAL LEADS BASELINE WANDER- I, III BORDERLINE ECG Compared to ECG 12/27/2023 14:17:41 HEART RATE HAS INCREASED First degree AV block now present Electronically Signed On 12-28-2023 09:19:07 CDT by Riley Gonzalez D.O.
[2023-12-28 03:16] LABS: Toxigenic C. Diff NEGATIVE (NEGATIVE)
[2023-12-28 03:38] LABS: MRSA (PCR) NOT DETECTED (NOT DETECTE)
[2023-12-28] MEDS: NOREPINEPHRINE 8 MG/D5W 250 ML 8 MG/250 ML BAG 41.25 MG IV CONT (04:01)
[2023-12-28] MEDS: SODIUM CHLORIDE 0.9% IV 1,000 ML 125 ML IV CONT (04:04)
[2023-12-28] MEDS: PIPERACILLIN/TAZ 2.25G/NS 50ML 2.25 GM/50 ML BAG IVPB (04:05)
[2023-12-28] MEDS: ACETAMINOPHEN 325 MG TABLET 650 MG PO (04:07)
[2023-12-28] MEDS: SODIUM BICARBONATE 8.4% 50 MEQ/50 ML SYRINGE IV PUSH (05:14)
[2023-12-28] MEDS: VASOPRESSIN INJ 100 UNITS in DEXTROSE 5% 95 ML IV CONT (05:14)
[2023-12-28 05:15] LABS: Basophils Percent Auto 0.2 % (0.2-1.2); Hematocrit 37.8 % (42.0-52.0); Hemoglobin 13.3 g/dL (14.0-18.0); Immature Granulocyte Absolute 0.07 K/mm3 (0.00-0.031); Immature Granulocyte Percent A 0.6 % (0-0.5); Lymphocytes Absolute Auto 0.27 K/mm3 (0.9-3.2); Lymphocytes Percent Auto 2.1 % (18.3-44.2); Mean Corpuscular HGB Conc 35.2 g/dl (32-36); Mean Corpuscular Hemoglobin 30.9 pg (26-34); Mean Corpuscular Volume 87.7 fl (80-100); Mean Platelet Volume 11.1 fl (7.4-10.4); Monocytes Percent Auto 7.6 % (2.6-8.5); Neutrophils Absolute Auto 11.4 K/mm3 (1.3-6.7); Neutrophils Percent Auto 89.5 % (45.5-73.1); Platelet Count Result 212 k/mm3 (150-375); Red Blood Count 4.31 M/mm3 (4.6-6.20); Red Cell Distribution Width 13.2 % (11.5-14.5); White Blood Count 12.7 K/mm3 (4.5-10.0)
[2023-12-28 05:20] LABS: Alveolar/Arterial O2 Gradient 107.2 mmHg; Base Excess ABG -6.3 mEq/l (+/-2.0); Carboxyhemoglobin 1.2 % THb (0-2.0); Fractional Inspired Oxygen 32 %; HCO3 ABG 17.1 mEq/l (22.0-26.0); Methemoglobin ABG 0.3 %THb (0-1.5); Oxygen Content ABG 18.8 %vol (16.0-22.0); Oxygen Saturation ABG 96.8 % (95.0-100.0); Oxyhemoglobin 95.8 % THb (90.0-100.0); PCO2 ABG 28.5 mmHg (35.0-45.0); PO2 ABG 87.6 mmHg (80.0-100.0); PO2 FiO2 Ratio Arterial Blood 2.74 %; Reduced Hemoglobin 2.7 %THb (0-5.0); Total Hemoglobin 13.9 g/dL (12.0-18.0); pH ABG 7.395 (7.350-7.450)
[2023-12-28 05:21] LABS: Device OTHER DEVICE; Modified Allen's Test Pass; Site Drawn LEFT RADIAL
[2023-12-28 05:26] LABS: Alanine Aminotransferase 27 U/L (6-50); Albumin Level 3.3 g/dL (3.5-5.1); Alkaline Phosphatase 54 U/L (38-126); Anion Gap 7 mmol/L (4-12); Aspartate Amino Transferase 58 U/L (17-59); Blood Urea Nitrogen 32 mg/dL (9-20); Carbon Dioxide 20 mmol/L (22-30); Chloride 98 mmol/L (98-107); Estimated CRCL calculation 34 ml/min; Estimated Glomerular Filt Rate 26; Glucose 120 mg/dL (65-110); Potassium 4.5 mmol/L (3.4-5.0); Sodium 125 mmol/L (137-145)
[2023-12-28 05:27] LABS: Magnesium 1.9 mg/dL (1.6-2.3)
[2023-12-28 05:27] LABS: Lactic Acid Reflex 1.6 mmol/L (0.7-2.0)
[2023-12-28 05:29] LABS: INR 1.3; Prothrombin Time 16.5 Seconds (11.1-14.7)
[2023-12-28 05:30] LABS: Partial Thromboplastin Time 29.5 Seconds (22.3-36.8)
[2023-12-28 05:44] LABS: Add Urine Microscopic? YES; Appearance Urine Cloudy (Clear); Bacteria Urine None Seen /hpf; Bilirubin Urine 2+ (Negative); Blood Urine Negative (Negative); Color Urine Dark Yellow (Yellow); Glucose Urine UA Negative (Negative); Ketones Urine Negative (Negative); Leukocyte Esterase Ur 1+ LEU/UL (Negative); Need Manual Microscopic Reviewed; Nitrate Urine Positive (Negative); Protein Urine 1+ mg/dL (Negative); Specific Grav Ur > 1.045 (1.001-1.035); Squamous Epithelial Cell Urine Few /hpf (Few)
[2023-12-28] MEDS: PANTOPRAZOLE SODIUM IV 40 MG VIAL IV PUSH ×2 (08:20→20:51)
[2023-12-28] MEDS: CEFEPIME 1 GM/NS 50 ML 1 GM/50 ML BAG IVPB ×2 (08:48→20:49)
[2023-12-28] MEDS: HYDROCORTISONE SODIUM SUCCINATE 100 MG/2 ML VIAL IV PUSH ×3 (09:03→21:07)
[2023-12-28] MEDS: ENOXAPARIN 40 MG/0.4 ML SYRINGE SUB-Q (09:03)
[2023-12-28] MEDS: NOREPINEPHRINE 8 MG/D5W 250 ML 8 MG/250 ML BAG 50.63 MG IV CONT (09:15)
[2023-12-28] MEDS: ALBUMIN HUMAN 5% 25 GM/500 ML BTL IV CONT (09:18)
--- NOTE | 2023-12-28 09:25 | WPDCNINT ---
Assessment and Plan Assessment and plan (1) Septic shock: Code(s): A41.9 - Sepsis, unspecified organism; R65.21 - Severe sepsis with septic shock Status: Acute Assessment and Plan: Septic shock secondary to cystitis/UTI and possible diverticulitis Patient presented with abdominal pain, CT scan showed constipation, tenderness in left lower quadrant UA suggestive of UTI Blood and urine cultures have been sent IV fluid bolus given and patient current now on IV maintenance fluid Continue Levophed and vasopressin infusion Add stress dose hydrocortisone Will give 5% albumin bolus Lactic acid has now normalized (2) JOEY (acute kidney injury): Code(s): N17.9 - Acute kidney failure, unspecified Status: Acute Assessment and Plan: Likely secondary to hypovolemia and hypotension. Check urine electrolytes and CK level CT scan of the abdomen does not show any stone or obstruction. Monitor urine output electrolytes and creatinine IV fluids Contain mean arterial pressure with vasopressors. (3) Abdominal pain: Code(s): R10.9 - Unspecified abdominal pain Status: Acute Assessment and Plan: Likely secondary to cystitis and or diverticulitis CT scan reviewed Chest x-ray done this morning again does not show any free air Management of constipation as below Management of UTI as above C diff negative (4) BRITTANI (obstructive sleep apnea): Code(s): G47.33 - Obstructive sleep apnea (adult) (pediatric) Status: Acute Assessment and Plan: CPAP ordered (5) GI bleed: Code(s): K92.2 - Gastrointestinal hemorrhage, unspecified Status: Acute Assessment and Plan: Patient has positive Hemoccult could be secondary to hemorrhoids. Continue monitoring hemoglobin Protonix IV q.12 hours Consult GI (6) Constipation: Code(s): K59.00 - Constipation, unspecified Status: Acute Assessment and Plan: MiraLax, Colace, Dulcolax (7) Pre-syncope: Code(s): R55 - Syncope and collapse Status: Acute Assessment and Plan: Likely vasovagal or secondary to hypertension. Monitor Plan DVT prophylaxis -Lovenox Stress ulcer prophylaxis -PPI Nutrition -resume diet Code Status - Full Code Total Critical Care Time - 32 minutes Due to a high probability of clinically significant, life threatening deterioration, the patient required my highest level of preparedness to intervene emergently and I personally spent this critical care time directly and personally managing the patient. This critical care time included obtaining a history; examining the patient; pulse oximetry; ordering and review of studies; arranging urgent treatment with development of a management plan; evaluation of patient's response to treatment; frequent reassessment; and discussions with other providers. It was exclusive of separately billable procedures and treating other patients and teaching time. 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 Patient states that he went to bathroom for a bowel movement and he felt that he was having difficulty defecating. And then he felt dizzy and about to pass out and laid down on the floor. Patient states that he never lost his consciousness Or hit his head. Post that he started having abdominal pain. Which he presented to the ER in the ER patient had large bowel movement following that the pain had resolved. Patient does admit to having chronic constipation. He denies any dysuria hematuria hematochezia or melena. He does states that he has hemorrhoids and has not sought any treatment for it. He states he had a colonosc
[2023-12-28 09:40] LABS: Creatine Kinase 429 U/L (55-170); Lipase 79 U/L (23-300); Phosphorus 2.3 mg/dL (2.5-4.5)
[2023-12-28] MEDS: metroNIDAZOLE 500 MG/ISO 100ML 500 MG/100 ML BAG 100 MG IVPB ×2 (10:17→17:06)
--- NOTE | 2023-12-28 10:54 | ECG_ITS ---
Test Date: 2023-12-28 11:06:47 Measurements Intervals [place] Rate: 124 P: -81 VA: 209 QRS: -15 QRSD: 95 T: 207 QT: 290 QTc: 417 Interpretive Statements ECTOPIC ATRIAL TACHYCARDIA LEFT VENTRICULAR HYPERTROPHYWITH ST-T CHANGE NONSPECIFIC T-WAVE ABNORMALITY- ANTEROLAT/INF LEADS BASELINE ARTIFACT- I, II, III, AVR, AVL, AVF, V1 ABNORMAL ECG Compared to ECG 12/28/2023 03:13:51 ECTOPIC ATRIAL TACHYCARDIA NOW PRESENT Electronically Signed On 12-28-2023 15:30:25 CDT by Riley Gonzalez D.O.
[2023-12-28] MEDS: CENTRAL LINE FLUSH 10 ML IV PUSH ×2 (14:56→21:08)
[2023-12-28 15:08] LABS: Creatinine Urine 79.9 mg/dL
[2023-12-28 15:09] LABS: Sodium Urine Random 78 meq/L
[2023-12-28] MEDS: SODIUM CHLORIDE 0.9% IV 1,000 ML 75 ML IV CONT (16:35)
[2023-12-28] MEDS: NOREPINEPHRINE 8 MG/D5W 250 ML 8 MG/250 ML BAG 20.63 MG IV CONT (16:36)
--- NOTE | 2023-12-28 19:26 | PM.IMPN ---
Progress Note: A&P Assessment and Plan (1) Septic shock: Code(s): A41.9 - Sepsis, unspecified organism; R65.21 - Severe sepsis with septic shock Status: Acute Assessment and Plan: Patient was constipated and was bearing down when he developed a syncopal episode. He was found to have HoTN (60/20) and abdominal pain CTA Ch/A/P showing no acute findings. UA concerning for UTI. Consider also translocation of bacteria/septicemia. Lactic was 6.9. 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 Stool studies sent. Chest x-ray done this morning again does not show any free air May need to repeat CT to further assess. (3) GI bleed: Code(s): K92.2 - Gastrointestinal hemorrhage, unspecified Status: Acute Assessment and Plan: Patient has positive Hemoccult could be secondary to hemorrhoids. Hgb 16 on admission but dropped to 13 range now. Probably related to IV fluids then acute blood loss. Protonix started. Continue monitoring hemoglobin GI consult (4) JOEY (acute kidney injury): Code(s): N17.9 - Acute kidney failure, unspecified Status: Acute Assessment and Plan: No recent Cr but last Cr was normal (1.27) in 2021. Cr was 2.2 on admission. Consider JOEY with CKD or maybe chronic. JOEY could be realted to ATN from hypovolemia and hypotension. TCK 429. Urine studies more likely ATN. Also received contrast yesterday. CT scan of the abdomen does not show any stone or obstruction. Monitor urine output electrolytes and creatinine (5) Acute urinary retention: Code(s): R33.8 - Other retention of urine Status: Acute Assessment and Plan: Mention of urine retention but CT showing normal bladder. Huizar secured. Voiding trial when able (6) Pre-syncope: Code(s): R55 - Syncope and collapse Status: Acute Assessment and Plan: Patient with syncope prior to admission related to valsalva. (7) BRITTANI (obstructive sleep apnea): Code(s): G47.33 - Obstructive sleep apnea (adult) (pediatric) Status: Acute Assessment and Plan: Stable. Continue CPAP at night Wean O2 as tolerated (8) Constipation: Code(s): K59.00 - Constipation, unspecified Status: Acute Assessment and Plan: Currently on MiraLax, Colace, Dulcolax Follow Plan Code status - full DVT prophylaxis - lovenox Subjective Date/time seen: 12/28/23 19:26 Interval history: 73yo male with HTN, BRITTANI and metabolic syndrome here for syncope. He is feeling better. No fevers at home. Did have arecent sinus infection. Eating okay today. No n/v. Does not wear O2 at home. Does wear CPAP Exam Narrative: Tm 101.8 98.9 137/72 82 19 96% 3L Gen - NARD Neck - rt IJ TLC secured. Chest - CTA bilaterally, nml RR CV - RRR S1/S2. Tele showing 1st degree AVB Abd - Soft, obese, Mild tenderness left flank - Huizar secured draining clear yellow urine Ext - No pedal edema Neuro - Alert and oriented. Nonfocal exam. Psych - Nml mood and affect Skin - Warm and dry Objective Data Vital Signs Vital Signs: Vital Signs - 24 hr 12/27/23 19:30 12/27/23 19:31 12/27/23 19:32 Temperature Pulse Rate 85 85 85 Respiratory Rate 17 18 16 Blood Pressure 98/55 L Pulse Oximetry 98 97 Oxygen Delivery Oxygen Flow Rate 12/27/23 20:28 12/27/23 20:53 12/27/23 19:35 Temperature Pulse Rate 81 90 84 Respiratory Rate 17 Bloo
[2023-12-28] MEDS: DOCUSATE SODIUM 100 MG CAPSULE PO (20:50)
[2023-12-29] VITALS (26 sets, daily range): BP systolic 101–153; BP diastolic 50–95; PULSE 60–98; RESP 14–22; TEMP 36.8–37.4; O2SAT 96–99
[2023-12-29] MEDS: metroNIDAZOLE 500 MG/ISO 100ML 500 MG/100 ML BAG 100 MG IVPB ×3 (02:05→17:12)
[2023-12-29] MEDS: HYDROCORTISONE SODIUM SUCCINATE 100 MG/2 ML VIAL IV PUSH ×2 (05:24→14:00)
[2023-12-29 05:25] LABS: Alanine Aminotransferase 23 U/L (6-50); Albumin Level 2.9 g/dL (3.5-5.1); Alkaline Phosphatase 41 U/L (38-126); Anion Gap 7 mmol/L (4-12); Aspartate Amino Transferase 51 U/L (17-59); Bilirubin,Total 0.8 mg/dL (0.2-1.3); Blood Urea Nitrogen 26 mg/dL (9-20); Calcium 7.9 mg/dL (8.4-10.2); Carbon Dioxide 24 mmol/L (22-30); Chloride 96 mmol/L (98-107); Estimated CRCL calculation 53 ml/min; Estimated Glomerular Filt Rate 43; Glucose 128 mg/dL (65-110); Magnesium 1.8 mg/dL (1.6-2.3); Potassium 3.6 mmol/L (3.4-5.0); Sodium 127 mmol/L (137-145)
[2023-12-29] MEDS: CENTRAL LINE FLUSH 10 ML IV PUSH ×3 (05:25→20:48)
[2023-12-29 05:33] LABS: Hematocrit 28.9 % (42.0-52.0); Hemoglobin 10.2 g/dL (14.0-18.0); Immature Platelet Fraction Pct 7.2 % (0.9-11.2); Mean Corpuscular HGB Conc 35.3 g/dl (32-36); Mean Corpuscular Hemoglobin 30.7 pg (26-34); Mean Platelet Volume 11.5 fl (7.4-10.4); Platelet Count Result 105 k/mm3 (150-375); Red Blood Count 3.32 M/mm3 (4.6-6.20); Red Cell Distribution Width 13.3 % (11.5-14.5); White Blood Count 7.7 K/mm3 (4.5-10.0)
[2023-12-29] MEDS: SODIUM CHLORIDE 0.9% IV 1,000 ML 75 ML IV CONT (06:05)
[2023-12-29] MEDS: VANCOMYCIN 1,250 MG/NS 250 ML 1,250 MG/250 ML BAG 166.67 MG IVPB ×2 (06:46→08:12)
[2023-12-29] MEDS: polyethylene glycoL 3350 17 GM POWD.PACK PO (08:07)
[2023-12-29] MEDS: DOCUSATE SODIUM 100 MG CAPSULE PO ×2 (08:10→20:46)
[2023-12-29] MEDS: CEFEPIME 1 GM/NS 50 ML 1 GM/50 ML BAG IVPB ×2 (08:10→20:47)
[2023-12-29] MEDS: PANTOPRAZOLE SODIUM IV 40 MG VIAL IV PUSH ×2 (08:10→20:46)
[2023-12-29 08:46] LABS: Basophils Percent Auto 0.4 % (0.2-1.2); Hematocrit 29.3 % (42.0-52.0); Hemoglobin 10.3 g/dL (14.0-18.0); Immature Granulocyte Absolute 0.11 K/mm3 (0.00-0.031); Immature Granulocyte Percent A 1.5 % (0-0.5); Lymphocytes Absolute Auto 0.33 K/mm3 (0.9-3.2); Lymphocytes Percent Auto 4.4 % (18.3-44.2); Mean Corpuscular HGB Conc 35.2 g/dl (32-36); Mean Corpuscular Hemoglobin 30.8 pg (26-34); Mean Corpuscular Volume 87.7 fl (80-100); Mean Platelet Volume 11.2 fl (7.4-10.4); Monocytes Absolute Auto 0.5 K/mm3 (0.1-0.6); Monocytes Percent Auto 7.2 % (2.6-8.5); Neutrophils Absolute Auto 6.5 K/mm3 (1.3-6.7); Neutrophils Percent Auto 86.5 % (45.5-73.1); Platelet Count Result 103 k/mm3 (150-375); Red Blood Count 3.34 M/mm3 (4.6-6.20); Red Cell Distribution Width 13.4 % (11.5-14.5); White Blood Count 7.5 K/mm3 (4.5-10.0)
[2023-12-29] MEDS: MAGNESIUM SULF 2 GM/WATER 50ML 2 GM/50 ML BAG IVPB (09:32)
[2023-12-29] MEDS: POTASSIUM CHLORIDE 20 MEQ ER TABLET 40 MEQ PO (09:33)
--- NOTE | 2023-12-29 09:58 | WPDGICN ---
Assessment and Plan Assessment and plan (1) Change in bowel habits: Code(s): R19.4 - Change in bowel habit Status: Acute (2) Constipation: Qualifiers: Constipation type: drug induced constipation Qualified Code(s): K59.03 - Drug induced constipation Code(s): K59.00 - Constipation, unspecified Status: Acute (3) Diarrhea: Qualifiers: Diarrhea type: presumed infectious Qualified Code(s): R19.7 - Diarrhea, unspecified Code(s): R19.7 - Diarrhea, unspecified Status: Acute (4) Rectal bleeding: Code(s): K62.5 - Hemorrhage of anus and rectum Status: Acute (5) Heme positive stool: Code(s): R19.5 - Other fecal abnormalities Status: Acute (6) Anemia: Qualifiers: Anemia type: unspecified type Qualified Code(s): D64.9 - Anemia, unspecified Code(s): D64.9 - Anemia, unspecified Status: Acute (7) Hypotension: Qualifiers: Hypotension type: unspecified hypotension type Qualified Code(s): I95.9 - Hypotension, unspecified Code(s): I95.9 - Hypotension, unspecified Status: Acute (8) GERD (gastroesophageal reflux disease): Qualifiers: Esophagitis bleeding: without hemorrhage Esophagitis presence: with esophagitis Qualified Code(s): K21.00 - Gastro-esophageal reflux disease with esophagitis, without bleeding Code(s): K21.9 - Gastro-esophageal reflux disease without esophagitis Status: Acute (9) Barretts esophagus: Qualifiers: Arias's esophagus type: without dysplasia Qualified Code(s): K22.70 - Arias's esophagus without dysplasia Code(s): K22.70 - Arias's esophagus without dysplasia Status: Acute (10) RLQ abdominal pain: Code(s): R10.31 - Right lower quadrant pain Status: Acute (11) NSAID long-term use: Code(s): Z79.1 - [facility] (current) use of non-steroidal anti-inflammatories (NSAID) Status: Acute Plan 1. Change in bowel habits/constipation/diarrhea/hematochezia/RLQ abdominal pain: Last colonoscopy 08/01/2021 showed a single 6 mm sessile sigmoid polyp that was removed with cold forceps polypectomy. Patient with intermittent episodes of constipation a few times monthly where he will have pebble like stools and require straining at times. Prior to this admission the patient was having constipation and felt as if he was going to pass out during bowel movement, per patient he never lost consciousness. per ER documentation blood pressure on EMS arrival was 60/30, today BP 109/54 after discontinuing vasopressors. Since admission he has been having liquid stools that vary from maroon in color to red/pink. Stool frequency has been slowly improving since admission. He admits to right lower quadrant pain that occurred more with palpation for the past 3-4 days but denies any abdominal pain today.He takes naproxen daily for knee inflammation for the past 10 years. C-Diff was negative but heme positive stools. DDX: Ischemic colitis vs infectious colitis vs medication induced (NSAID) less likely IBD or neoplasm Patient is on Zepbound for weight loss which may be contributing to his recent change in bowel habits Recommended Miralax 1-2 scoops daily at home after discharge and advised patient to adjust the dosing according to symptoms and response to avoid constipation. if this is not effective we can discuss different treatment options during outpatient follow-up appointment Clear liquid diet NPO after midnight bowel prep to start this evening colonoscopy tomorrow 2. Anemia: On admission HGB 16, HCT 46. Labs today show HGB 10, HCT 29, MCV 87, platelets 105. INR yesterday 1.3. BUN 26, creatinine 1.60. Last dose of Lovenox yesterday, currently being held. Patient noted to have heme-positive stools and maroon/ red/ pink colored stools since admission. Patient does have a history of severe gastritis and takes naproxen twice
[2023-12-29] MEDS: BISACODYL 5 MG TABLET EC 20 MG PO (11:36)
--- NOTE | 2023-12-29 14:11 | WPDINTPN ---
Progress Note: A&P Assessment and Plan (1) Septic shock: Code(s): A41.9 - Sepsis, unspecified organism; R65.21 - Severe sepsis with septic shock Status: Acute Assessment and Plan: Septic shock secondary to cystitis/UTI and possible diverticulitis -Patient presented with abdominal pain, CT scan showed constipation, tenderness in left lower quadrant -UA suggestive of UTI -12/26: Blood cultures growing Gram-positive cocci in clusters 2/2 bottles -12/27: Cultures negative so far -patient has received adequate IV fluids since admission -Levophed is currently off -will decrease stress dose steroids Lactic acid has now normalized (2) JOEY (acute kidney injury): Code(s): N17.9 - Acute kidney failure, unspecified Status: Acute Assessment and Plan: Likely secondary to hypovolemia and hypotension. Check urine electrolytes and CK level CT scan of the abdomen does not show any stone or obstruction. Monitor urine output electrolytes and creatinine IV fluids Renal function is improving (3) Abdominal pain: Code(s): R10.9 - Unspecified abdominal pain Status: Acute Assessment and Plan: Likely secondary to cystitis and or diverticulitis CT scan reviewed Chest x-ray done this morning again does not show any free air Management of constipation as below Management of UTI as above C diff negative (4) BRITTANI (obstructive sleep apnea): Code(s): G47.33 - Obstructive sleep apnea (adult) (pediatric) Status: Acute Assessment and Plan: CPAP ordered (5) GI bleed: Code(s): K92.2 - Gastrointestinal hemorrhage, unspecified Status: Acute Assessment and Plan: Patient has positive Hemoccult could be secondary to hemorrhoids. Continue monitoring hemoglobin Protonix IV q.12 hours Appreciate GI evaluation and recommendation, colonoscopy in a.m. on 12/30/2023 (6) Constipation: Qualifiers: Constipation type: drug induced constipation Qualified Code(s): K59.03 - Drug induced constipation Code(s): K59.00 - Constipation, unspecified Status: Acute Assessment and Plan: MiraLax, Colace, Dulcolax (7) Pre-syncope: Code(s): R55 - Syncope and collapse Status: Acute Assessment and Plan: Likely vasovagal or secondary to hypertension. Monitor (8) Anemia: Qualifiers: Anemia type: unspecified type Qualified Code(s): D64.9 - Anemia, unspecified Code(s): D64.9 - Anemia, unspecified Status: Acute Assessment and Plan: Anemia likely related to GI bleed - will maintain hemoglobin > 7 per GI -hold Lovenox -avoid aspirin, NSAIDs, anticoagulation Plan DVT prophylaxis -SCDs, no chemical prophylaxis due to GI bleed and anemia Stress ulcer prophylaxis -PPI Nutrition -clear liquid diet, NPO after midnight for procedure Code Status - Full Code Total Critical Care Time - 34 minutes Due to a high probability of clinically significant, life threatening deterioration, the patient required my highest level of preparedness to intervene emergently and I personally spent this critical care time directly and personally managing the patient. This critical care time included obtaining a history; examining the patient; pulse oximetry; ordering and review of studies; arranging urgent treatment with development of a management plan; evaluation of patient's response to treatment; frequent reassessment; and discussions with other providers. It was exclusive of separately billable procedures and treating other patients and teaching time. Please see Assessment and Plan section and the rest of the note for further information on patient assessment and treatment This dictation may have been done utilizing a voice recognition system. Attempts have been made to correct errors. However, there may be uncorrected grammatical, spelling, and recognitions errors present. Subjective Date/time seen: 12/29/23 14:11 Inter
[2023-12-29] MEDS: polyethylene glycoL 3350 238 GM BOTTLE PO (17:12)
--- NOTE | 2023-12-29 18:24 | PM.IMPN ---
Progress Note: A&P Assessment and Plan (1) Septic shock: Code(s): A41.9 - Sepsis, unspecified organism; R65.21 - Severe sepsis with septic shock Status: Acute Assessment and Plan: Patient was constipated and was bearing down when he developed a syncopal episode. He was found to have HoTN (60/20) and abdominal pain CTA Ch/A/P showing no acute findings. UA concerning for UTI. Consider also translocation of bacteria/septicemia. Lactic was 6.9. Patient with septic shock secondary to cystitis/UTI and less likely diverticulitis (he does have left flank pain on exam but this has resolved). Abx with Vanco, Flagyl and Cefepime started after appropriate cultures obtained. IV fluid bolus given but required pressors. 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 Stress dose hydrocortisone added and he was also given 5% albumin bolus. Currently stress dose steroids. UCx negative. Blood cultures growing gram positive cocci in clusters in both aerobic bottles Lactic acid has now normalized. Follow up on BCx results. Repeat BCx. (2) Abdominal pain: Code(s): R10.9 - Unspecified abdominal pain Status: Acute Assessment and Plan: Likely secondary to cystitis and less likely diverticulitis CDiff negative. Stool studies sent. Chest x-ray done this morning again does not show any free air Abdominal pain better. (3) GI bleed: Code(s): K92.2 - Gastrointestinal hemorrhage, unspecified Status: Acute Assessment and Plan: Patient has positive Hemoccult could be secondary to hemorrhoids. Hgb 16 on admission but dropped to 10.2 range now. Probably related to IV fluids then acute blood loss. Repeat Hgb unchanged. Continue Protonix. EGD planned. Continue monitoring hemoglobin GI following (4) JOEY (acute kidney injury): Code(s): N17.9 - Acute kidney failure, unspecified Status: Acute Assessment and Plan: No recent Cr but last Cr was normal (1.27) in 2021. Cr was 2.2 on admission. JOEY with possible underlying CKD. JOEY related to ATN from hypovolemia and hypotension. TCK 429. Urine studies more likely ATN. Received contrast 12/27 CT scan of the abdomen does not show any stone or obstruction. Cr trending down Monitor urine output, electrolytes and creatinine (5) Acute urinary retention: Code(s): R33.8 - Other retention of urine Status: Acute Assessment and Plan: Mention of urine retention but CT showing normal bladder. Huizar secured. Voiding trial when able (6) Pre-syncope: Code(s): R55 - Syncope and collapse Status: Acute Assessment and Plan: Patient with syncope prior to admission related to valsalva. As above (7) BRITTANI (obstructive sleep apnea): Code(s): G47.33 - Obstructive sleep apnea (adult) (pediatric) Status: Acute Assessment and Plan: Stable. Continue CPAP at night as tolerated Resp contacted to help adjust settings and ambient air temp for comfort Wean O2 as tolerated (8) Constipation: Qualifiers: Constipation type: drug induced constipation Qualified Code(s): K59.03 - Drug induced constipation Code(s): K59.00 - Constipation, unspecified Status: Acute Assessment and Plan: Currently on MiraLax, Colace Follow Plan Code status - full DVT prophylaxis - SCD Subjective Date/time seen: 12/29/23 18:24 Interval history: 73yo male with HTN, BRITTANI and metabolic syndrome here for syncope. Slept poorly. Problem with CPAP blowing cold air. No CP or SOB. No n/v. Exam Narrative: AF 98.7 131/64 73 21 98% 2L Gen - NARD Neck - rt IJ TLC secured. Chest - distant BS, nml RR CV - RRR S1/S2. Tele showing sinus arrhythmias Abd - Soft, obese, nontender - Huizar secured draining clear yellow urine Ext - No pedal edema Psych - Nml mood and affect Skin - Warm and dry Objective Data Vital Signs Vital Signs: Vital Signs -
--- NOTE | 2023-12-29 23:46 | PC.NURSE ---
This patient, Rickey Joshi, was received from [[id number] ] on 12/29/23 at 2346. Patient/family oriented to unit policies and routines
--- NOTE | 2023-12-29 23:57 | PC.NURSE ---
This patient, Rickey Joshi, was transferred to [[facility] room 209 ] on 12/29/23 at 2345. Personal belongings sent with patient. Report given to [JAMAL Villagran ]. Appropriate documentation sent with patient.
[2023-12-30] VITALS (15 sets, daily range): BP systolic 113–176; BP diastolic 68–86; PULSE 84–102; RESP 17–22; TEMP 36.6–37.2; O2SAT 94–99
[2023-12-30] MEDS: MAGNESIUM CITRATE 300 ML BTL PO (02:10)
[2023-12-30] MEDS: metroNIDAZOLE 500 MG/ISO 100ML 500 MG/100 ML BAG 100 MG IVPB ×2 (02:10→09:01)
[2023-12-30] MEDS: CENTRAL LINE FLUSH 10 ML IV PUSH (04:43)
[2023-12-30 04:47] LABS: Basophils Absolute Auto 0.1 K/mm3 (0.0-0.1); Basophils Percent Auto 0.8 % (0.2-1.2); Eosinophils Percent Auto 0.1 % (0-4.4); Hematocrit 31.6 % (42.0-52.0); Hemoglobin 11.5 g/dL (14.0-18.0); Immature Granulocyte Absolute 0.04 K/mm3 (0.00-0.031); Immature Granulocyte Percent A 0.4 % (0-0.5); Immature Platelet Fraction Pct 7.7 % (0.9-11.2); Lymphocytes Absolute Auto 0.62 K/mm3 (0.9-3.2); Lymphocytes Percent Auto 6.4 % (18.3-44.2); Mean Corpuscular HGB Conc 36.4 g/dl (32-36); Mean Corpuscular Hemoglobin 31.4 pg (26-34); Mean Corpuscular Volume 86.3 fl (80-100); Mean Platelet Volume 11.3 fl (7.4-10.4); Monocytes Absolute Auto 0.6 K/mm3 (0.1-0.6); Monocytes Percent Auto 6.5 % (2.6-8.5); Neutrophils Absolute Auto 8.4 K/mm3 (1.3-6.7); Neutrophils Percent Auto 85.8 % (45.5-73.1); Platelet Count Result 121 k/mm3 (150-375); Red Blood Count 3.66 M/mm3 (4.6-6.20); Red Cell Distribution Width 13.4 % (11.5-14.5); White Blood Count 9.7 K/mm3 (4.5-10.0)
[2023-12-30 04:58] LABS: Alanine Aminotransferase 30 U/L (6-50); Albumin Level 3.5 g/dL (3.5-5.1); Alkaline Phosphatase 53 U/L (38-126); Anion Gap 8 mmol/L (4-12); Aspartate Amino Transferase 56 U/L (17-59); Bilirubin,Total 0.7 mg/dL (0.2-1.3); Blood Urea Nitrogen 22 mg/dL (9-20); Calcium 8.6 mg/dL (8.4-10.2); Carbon Dioxide 25 mmol/L (22-30); Chloride 96 mmol/L (98-107); Estimated CRCL calculation 82 ml/min; Estimated Glomerular Filt Rate > 60; Glucose 116 mg/dL (65-110); Magnesium 1.9 mg/dL (1.6-2.3); Phosphorus 1.5 mg/dL (2.5-4.5); Potassium 3.3 mmol/L (3.4-5.0); Sodium 129 mmol/L (137-145)
[2023-12-30 06:01] LABS: Anisocytosis 1+; Burr Cells 1+; Platelet Estimate Adequate (Adequate); Schistocytes None Seen
[2023-12-30] MEDS: VANCOMYCIN 1,500 MG/NS 500 ML 1,500 MG/500 ML BAG 250 MG IVPB ×2 (06:39→18:25)
[2023-12-30] MEDS: PANTOPRAZOLE SODIUM IV 40 MG VIAL IV PUSH ×2 (08:46→20:44)
[2023-12-30] MEDS: HYDROCORTISONE SODIUM SUCCINATE 100 MG/2 ML VIAL 50 MG IV PUSH (08:46)
[2023-12-30] MEDS: CEFEPIME 1 GM/NS 50 ML 1 GM/50 ML BAG IVPB ×2 (08:47→20:42)
[2023-12-30] MEDS: POTASSIUM/PHOSPHORUS/SODIUM 1.5 GM PACKET 1 PACKET PO ×2 (08:51→16:53)
[2023-12-30] MEDS: POTASSIUM CHLORIDE 20 MEQ PACKET (FOR LIQUID) 40 MEQ PO (08:51)
--- NOTE | 2023-12-30 10:21 | PC.NURSE ---
To GI Lab per [ wheelchair. Report given to [JAMAL Raya ].
[2023-12-30] MEDS: LACTATED RINGERS 1,000 ML 150 ML IV CONT (10:31)
--- NOTE | 2023-12-30 10:42 | WPDANESEPPF ---
Anes - Initial Pre Proc Eval Procedure: Operation Date: 12/30/23 16:00 Proposed Procedures p Esophagogastroduodenoscopy & Colonoscopy - Pop Portillo MD Date/Time: 12/30/23 10:42 Surgeon: Noelle Ojeda DO Pre Op Diagnosis: Hyotension, Diarrhea, Ab pain, JOEY Patient Data Age: 73 Gender: M Height: 1.83 m Weight: 130.7 kg Last Vital Signs Temp 97.9 F 12/30/23 10:33 Pulse 93 12/30/23 10:33 Resp 20 12/30/23 10:33 BP 150/71 H 12/30/23 10:33 Pulse Ox 96 12/30/23 10:33 O2 Del Method Room Air 12/30/23 10:33 O2 Flow Rate 2 12/29/23 04:00 FiO2 21 12/30/23 08:27 Allergies Allergy/AdvReac Type Severity Reaction Status Date / Time No Known Allergies Allergy Verified 12/27/23 23:16 Home Medications Medication Instructions Recorded Confirmed Type aspirin 81 mg tablet,delayed 81 mg PO DAILY 02/24/19 12/27/23 History release atenolol 25 mg tablet See Rx Instructions .Route 04/16/21 12/27/23 Rx .COMPLEX #90 tabs atorvastatin 40 mg tablet See Rx Instructions .Route 04/16/21 12/27/23 Rx .COMPLEX #90 tabs hydrochlorothiazide 25 mg tablet 25 mg PO DAILY 07/18/21 12/27/23 History lisinopril 30 mg tablet 30 mg PO DAILY #90 tabs 02/13/23 12/27/23 Rx naproxen 500 mg tablet 500 mg PO BID 05/16/23 12/27/23 History pantoprazole 40 mg tablet,delayed See Rx Instructions .Route 07/16/23 12/27/23 Rx release .COMPLEX #90 tabs tirzepatide (weight loss) 2.5 2.5 mg (0.5 mL) subcut WEEKLY #2 mL 11/25/23 12/27/23 Rx mg/0.5 mL subcutaneous pen injector (Zepbound) loratadine 10 mg tablet See Rx Instructions .Route 11/28/23 12/27/23 Rx .COMPLEX #90 tabs fenofibrate 160 mg tablet See Rx Instructions .Route 12/09/23 12/27/23 Rx .COMPLEX #90 tabs zolpidem 12.5 mg tablet,extended 12.5 mg PO QHS #30 tabs 12/26/23 12/27/23 Rx release,multiphase gabapentin 300 mg capsule 300 mg PO Q12H 12/27/23 12/27/23 History (Neurontin) Laboratory Tests 12/30/23 04:36 WBC 9.7 K/mm3 (4.5-10.0) RBC 3.66 L M/mm3 (4.6-6.20) Hgb 11.5 L g/dL (14.0-18.0) Hct 31.6 L % (42.0-52.0) MCV 86.3 fl (80-100) MCH 31.4 pg (26-34) MCHC 36.4 H g/dl (32-36) RDW 13.4 % (11.5-14.5) Plt Count 121 L k/mm3 (150-375) MPV 11.3 H fl (7.4-10.4) Immature Gran % (Auto) 0.4 % (0-0.5) Neut % (Auto) 85.8 H % (45.5-73.1) Lymph % (Auto) 6.4 L % (18.3-44.2) [place] % (Auto) 6.5 % (2.6-8.5) Eos % (Auto) 0.1 % (0-4.4) Baso % (Auto) 0.8 % (0.2-1.2) Lymph # (Auto) 0.62 L K/mm3 (0.9-3.2) [place] # (Auto) 0.6 K/mm3 (0.1-0.6) Eos # (Auto) 0.0 K/mm3 (0-0.3) Baso # (Auto) 0.1 K/mm3 (0.0-0.1) Abs Immat Gran (auto) 0.04 H K/mm3 (0.00-0.031) Absolute Neuts (auto) 8.4 H K/mm3 (1.3-6.7) Absolute Nucleated RBC 0.000 K/mm3 (0.0-0.012) Nucleated RBC % 0.0 % (0.0-0.2) Platelet Estimate Adequate (Adequate) % Immature Plt Fraction 7.7 % (0.9-11.2) Anisocytosis 1+ [place] Cells 1+ Schistocytes None seen Sodium 129 L mmol/L (137-145) Potassium 3.3 L mmol/L (3.4-5.0) Chloride 96 L mmol/L (98-107) Carbon Dioxide 25 mmol/L (22-30) Anion Gap 8 mmol/L (4-12) BUN 22 H mg/dL (9-20) Creatinine 1.00 mg/dL (0.7-1.3) Estim Creat Clear Calc 82 ml/min Estimated GFR > 60 (59 - ) Glucose 116 H mg/dL (65-110) Calcium 8.6 mg/dL (8.4-10.2) Phosphorus 1.5 L mg/dL (2.5-4.5) Magnesium 1.9 mg/dL (1.6-2.3) Total Bilirubin 0.7 mg/dL (0.2-1.3) AST 56 U/L (17-59) ALT 30 U/L (6-50) Alkaline Phosphatase 53 U/L (38-126) Total Protein 7.0 g/dL (6.3-8.2) Albumin 3.5 g/dL (3.5-5.1) Patient hx anesthesia problems: none Family hx anesthesia problems: none Results Review: All pre-operative results and documents have been reviewed as part of the pre-operative evaluation.
--- NOTE | 2023-12-30 10:48 | PM.IMPN ---
Progress Note: A&P Assessment and Plan (1) Septic shock: Code(s): A41.9 - Sepsis, unspecified organism; R65.21 - Severe sepsis with septic shock Status: Acute Assessment and Plan: Patient was constipated and was bearing down when he developed a syncopal episode. He was found to have HoTN (60/20) and abdominal pain CTA Ch/A/P showing no acute findings. UA concerning for UTI. Consider also translocation of bacteria/septicemia. Lactic was 6.9. Patient with septic shock secondary to cystitis/UTI and less likely diverticulitis (he does have left flank pain on exam but this has resolved). Abx with Vanco, Flagyl and Cefepime started after appropriate cultures obtained. IV fluid bolus given but required pressors. 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 Stress dose hydrocortisone added and he was also given 5% albumin bolus. UCx negative. Blood cultures growing Staph epi in one aerobic bottle and Staph hominis in the other aerobic bottle Lactic acid has now normalized. Repeat BCx pending Follow up on BCx results. (2) Abdominal pain: Code(s): R10.9 - Unspecified abdominal pain Status: Acute Assessment and Plan: Likely secondary to cystitis and less likely diverticulitis CDiff negative. GI consulted with plans for colonoscopy and EGD today. Abdominal pain better. Follow up on results. (3) GI bleed: Code(s): K92.2 - Gastrointestinal hemorrhage, unspecified Status: Acute Assessment and Plan: Patient has positive Hemoccult could be secondary to hemorrhoids. Hgb 16 on admission but dropped to 10-11 range now. Probably related to IV fluids then acute blood loss. Repeat Hgb stable Continue Protonix. EGD and colo planned. Continue monitoring hemoglobin GI following (4) JOEY (acute kidney injury): Code(s): N17.9 - Acute kidney failure, unspecified Status: Acute Assessment and Plan: No recent Cr but last Cr was normal (1.27) in 2021. Cr was 2.2 on admission. JOEY related to ATN from hypovolemia and hypotension. TCK 429. Urine studies more likely ATN. Received contrast 12/27 CT scan of the abdomen does not show any stone or obstruction. Cr trending and now normal. Monitor urine output, electrolytes and creatinine (5) Acute urinary retention: Code(s): R33.8 - Other retention of urine Status: Acute Assessment and Plan: Mention of urine retention but CT showing normal bladder. Huizar secured. Voiding trial when able (6) Pre-syncope: Code(s): R55 - Syncope and collapse Status: Acute Assessment and Plan: Patient with syncope prior to admission related to valsalva. As above (7) BRITTANI (obstructive sleep apnea): Code(s): G47.33 - Obstructive sleep apnea (adult) (pediatric) Status: Acute Assessment and Plan: Stable. Continue CPAP at night as tolerated Resp contacted to help adjust settings and ambient air temp for comfort Wean O2 as tolerated (8) Constipation: Qualifiers: Constipation type: drug induced constipation Qualified Code(s): K59.03 - Drug induced constipation Code(s): K59.00 - Constipation, unspecified Status: Acute Assessment and Plan: Currently on MiraLax, Colace Follow Plan Code status - full DVT prophylaxis - SCD Subjective Date/time seen: 12/30/23 10:48 Interval history: 73yo male with HTN, BRITTANI and metabolic syndrome here for syncope. Slept off/on. Tolerated the bowel prep. No SOB, SANTOS or CP. Exam Narrative: AF 97.9 150/71 93 20 96% ra Gen - NARD Neck - rt IJ TLC secured. Chest - CTA bilaterally, nml RR CV - RRR S1/S2. Tele showing no significant dysrhythmias Abd - Soft, obese, nontender Ext - trace pedal edema Psych - Nml mood and affect Skin - Warm and dry Objective Data Vital Signs Vital Signs: Vital Signs - 24 hr 12/29/23 12:00 12/29/23 12:00 12/29/23 14:00
--- NOTE | 2023-12-30 11:35 | SUR.OPER ---
EGD [id number]. Colon start time 1136.
[2023-12-30] MEDS: metroNIDAZOLE 500 MG TABLET PO ×2 (16:53→21:22)
[2023-12-30] MEDS: GABAPENTIN 300 MG CAPSULE PO ×2 (16:53→20:44)
[2023-12-30] MEDS: DOCUSATE SODIUM 100 MG CAPSULE PO (20:44)
[2023-12-31] MEDS: metroNIDAZOLE 500 MG TABLET PO (05:14)
[2023-12-31 06:14] LABS: Hematocrit 28.9 % (42.0-52.0); Hemoglobin 10.1 g/dL (14.0-18.0); Mean Corpuscular HGB Conc 34.9 g/dl (32-36); Mean Corpuscular Hemoglobin 30.5 pg (26-34); Mean Corpuscular Volume 87.3 fl (80-100); Mean Platelet Volume 10.8 fl (7.4-10.4); Platelet Count Result 104 k/mm3 (150-375); Red Blood Count 3.31 M/mm3 (4.6-6.20); Red Cell Distribution Width 13.4 % (11.5-14.5); White Blood Count 8.2 K/mm3 (4.5-10.0)
[2023-12-31 06:29] LABS: Alanine Aminotransferase 27 U/L (6-50); Alkaline Phosphatase 50 U/L (38-126); Anion Gap 5 mmol/L (4-12); Aspartate Amino Transferase 39 U/L (17-59); Bilirubin,Total 0.6 mg/dL (0.2-1.3); Blood Urea Nitrogen 19 mg/dL (9-20); Carbon Dioxide 26 mmol/L (22-30); Chloride 96 mmol/L (98-107); Estimated CRCL calculation 91 ml/min; Estimated Glomerular Filt Rate > 60; Glucose 84 mg/dL (65-110); Magnesium 2.2 mg/dL (1.6-2.3); Potassium 3.3 mmol/L (3.4-5.0); Sodium 127 mmol/L (137-145)
[2023-12-31 06:32] LABS: Vancomycin Trough 11.2 ug/mL (10.0-20.0)
[2023-12-31] MEDS: PANTOPRAZOLE SODIUM IV 40 MG VIAL IV PUSH (08:02)
[2023-12-31] MEDS: ATORVASTATIN 40 MG TABLET BY MOUTH (08:02)
[2023-12-31] MEDS: GABAPENTIN 300 MG CAPSULE PO (08:02)
[2023-12-31 08:43] VITALS: BP 120/62; PULSE 80; RESP 20; TEMP 36.5; O2SAT 95
--- NOTE | 2023-12-31 09:15 | PC.NURSE ---
This patient, Rickey Joshi, was transferred to [[id number] ] on 12/31/23 at 0847. Personal belongings sent with patient. Report given to [ JAMAL Funk @ 70]. Appropriate documentation sent with patient. , Yaritza, notified of transfer
[2023-12-31] MEDS: POTASSIUM CHLORIDE 20 MEQ ER TABLET 40 MEQ PO (10:37)
--- NOTE | 2023-12-31 11:49 | PM.DS ---
DS: Admitting Diagnosis Discharge Date 12/31/2023 Admitting Diagnosis Passed out while trying to have a bowel movement DS: Discharge Diagnosis Discharge Diagnosis (1) Septic shock: Code(s): A41.9 - Sepsis, unspecified organism; R65.21 - Severe sepsis with septic shock Status: Acute Assessment and Plan: Patient was constipated and was bearing down when he developed a syncopal episode. He was found to have HoTN (60/20) and abdominal pain CTA Ch/A/P showing no acute findings. UA concerning for UTI. Consider also translocation of bacteria/septicemia. Lactic was 6.9. Patient with septic shock secondary to cystitis/UTI and less likely diverticulitis (he does have left flank pain on exam but this has resolved). Abx with Vanco, Flagyl and Cefepime started after appropriate cultures obtained. IV fluid bolus given but required pressors. 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 Stress dose hydrocortisone added and he was also given 5% albumin bolus. UCx negative. Blood cultures growing Staph epi in one aerobic bottle and Staph hominis in the other aerobic bottle Lactic acid has now normalized. Repeat BCx prelim negative to date (2) Abdominal pain: Code(s): R10.9 - Unspecified abdominal pain Status: Acute Assessment and Plan: Likely secondary to cystitis and less likely diverticulitis CDiff negative. GI consulted with plans for colonoscopy and EGD today. Abdominal pain better. Follow up on results. (3) GI bleed: Code(s): K92.2 - Gastrointestinal hemorrhage, unspecified Status: Acute Assessment and Plan: Patient has positive Hemoccult could be secondary to hemorrhoids. Hgb 16 on admission but dropped to 10-11 range now. Probably related to IV fluids then acute blood loss. Repeat Hgb stable Continue Protonix. EGD and colo planned. Continue monitoring hemoglobin GI following (4) JOEY (acute kidney injury): Code(s): N17.9 - Acute kidney failure, unspecified Status: Acute Assessment and Plan: No recent Cr but last Cr was normal (1.27) in 2021. Cr was 2.2 on admission. JOEY related to ATN from hypovolemia and hypotension. TCK 429. Urine studies more likely ATN. Received contrast 12/27 CT scan of the abdomen does not show any stone or obstruction. Cr trending and now normal. (5) Acute urinary retention: Code(s): R33.8 - Other retention of urine Status: Acute Assessment and Plan: Mention of urine retention but CT showing normal bladder. bartholomew out on dc (6) Pre-syncope: Code(s): R55 - Syncope and collapse Status: Acute Assessment and Plan: Patient with syncope prior to admission related to valsalva. As above (7) BRITTANI (obstructive sleep apnea): Code(s): G47.33 - Obstructive sleep apnea (adult) (pediatric) Status: Acute Assessment and Plan: Stable. Continue CPAP at night as tolerated Resp contacted to help adjust settings and ambient air temp for comfort Wean O2 as tolerated (8) Constipation: Qualifiers: Constipation type: drug induced constipation Qualified Code(s): K59.03 - Drug induced constipation Code(s): K59.00 - Constipation, unspecified Status: Acute Assessment and Plan: Currently on MiraLax, Colace resolved Plan DS: Summary Hospital Course Hospital Course: 73yo male with HTN, BRITTANI and metabolic syndrome here for syncope. Slept off/on. Tolerated the bowel prep. No SOB, SANTOS or CP. Patient with septic shock secondary to cystitis/UTI and less likely diverticulitis (he does have left flank pain on exam but this has resolved). Abx with Vanco, Flagyl and Cefepime started after appropriate cultures obtained. IV fluid bolus given but required pressors. 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 Stress dose hydrocortisone added and he was also given 5% albumin bolus. UCx negative. B
--- NOTE | 2023-12-31 12:54 | WPDGIPROGNO ---
Progress Note: A&P Assessment and Plan (1) Ischemic colitis: Code(s): K55.9 - Vascular disorder of intestine, unspecified Status: Acute Assessment and Plan: clinically much better he had ischemic colitis (confirmed also by bx) he is going home with oral abx colonoscopy in 1 year to assess healing (2) Rectal bleeding: Code(s): K62.5 - Hemorrhage of anus and rectum Status: Acute Assessment and Plan: from colitis, resolved (3) Pre-syncope: Code(s): R55 - Syncope and collapse Status: Acute Assessment and Plan: on admission with hypotension- this also caused ischemic colitis resolved (4) Septic shock: Code(s): A41.9 - Sepsis, unspecified organism; R65.21 - Severe sepsis with septic shock Status: Acute (5) Abdominal pain: Code(s): R10.9 - Unspecified abdominal pain Status: Acute (6) Diarrhea: Qualifiers: Diarrhea type: presumed infectious Qualified Code(s): R19.7 - Diarrhea, unspecified Code(s): R19.7 - Diarrhea, unspecified Status: Acute Subjective Date/time seen: 12/31/23 11:01 Interval history: egd normal, colonoscopy with mod-severe ischemic colitis he is feeling better today and going home Review of Systems Review of Systems: All systems reviewed & are unremarkable except as noted in HPI and below Exam Const: General: comfortable and no acute distress HENMT: Face/Nose/Sinus: Normal nares present Eyes: General: appearance normal, both eyes and all related structures Neck: Neck: supple Resp: Auscultation: clear to auscultation bilaterally Cardio: Rate: regular rate Rhythm: regular rhythm GI: Inspection: non-distended GI Palp: Yes Soft to palpation and No Tenderness to palpation present (GI) Auscultation: normal bowel sounds Skin: General skin exam: normal color Neuro: Speech: normal speech Motor exam (neuro): 5/5 motor strength present throughout Extrem: General: normal to inspection Psych: Mental Status: mental status grossly normal Objective Data Vital Signs Vital Signs: Vital Signs - 24 hr 12/30/23 15:12 12/30/23 15:31 12/30/23 15:43 Temperature 98.6 F Pulse Rate 102 H Respiratory Rate 18 Blood Pressure 151/73 H Pulse Oximetry 97 Oxygen Delivery Room Air Room Air 12/30/23 20:39 12/31/23 08:43 12/31/23 08:00 Temperature 97.8 F 97.7 F Pulse Rate 95 80 Respiratory Rate 18 20 Blood Pressure 156/82 H 120/62 Pulse Oximetry 97 95 Oxygen Delivery Room Air Intake/Output Intake/Output: Intake & Output 12/28/23 12/29/23 12/30/23 12/31/23 23:59 23:59 23:59 23:59 Intake Total 3928.2 3800.2 1990 550 Output Total 1580 3550 1150 300 Balance 2348.2 250.2 840 250 Meds/Results Radiology Results: ITS Impressions Chest/Abdomen/Pelvis CTA 12/27/23 14:18 IMPRESSION: CHEST: 1. No pulmonary embolism. 2. No acute cardiopulmonary pathology. ABDOMEN/PELVIS: 1. No evidence of diverticulitis, appendicitis or intestinal obstruction. 2. Constipation. 3. Sliding hiatus hernia. Chest X-Ray 12/28/23 06:08 Impression: 1: No acute cardiopulmonary disease. Labs Labs: Laboratory Results - last 24 hr 12/31/23 06:06 WBC 8.2 RBC 3.31 L Hgb 10.1 L Hct 28.9 L MCV 87.3 MCH 30.5 MCHC 34.9 RDW 13.4 Plt Count 104 L MPV 10.8 H Sodium 127 L Potassium 3.3 L Chloride 96 L Carbon Dioxide 26 Anion Gap 5 BUN 19 Creatinine 0.90 Estim Creat Clear Calc 91 Estimated GFR > 60 Glucose 84 Calcium 8.0 L Magnesium 2.2 Total Bilirubin 0.6 AST 39 ALT 27 Alkaline Phosphatase 50 Total Protein 6.0 L Albumin 3.0 L Vancomycin Trough 11.2
== END 2023-12-31 12:10 | disposition home or self-care (01) | DRG 871 ==
LOC: ANHED 14:24 → ANHICU 21:16 → ANHIMU 12-29 23:58 → ANH3MEDSUR 12-31 11:49 → ANHIMU 01-01 13:24
PROVIDERS: Internal Medicine; Internal Medicine Gastroenterology; Admitting Provider Internal Medicine; Emergency Provider Emergency Medicine; PCP Family Medicine; Visit Provider Family Medicine
PROC: 0DJ08ZZ Inspection of Upper Intestinal Tract, Via Natural or Artificial Opening Endoscopic (ICD-10-PCS; CPT 43235; principal; 2023-12-30 16:00)
DX: A41.1 Sepsis due to other specified staphylococcus (principal); R65.21 Severe sepsis with septic shock; N17.9 Acute kidney failure, unspecified; K92.2 Gastrointestinal hemorrhage, unspecified; K55.9 Vascular disorder of intestine, unspecified; E78.2 Mixed hyperlipidemia; E66.9 Obesity, unspecified; G47.33 Obstructive sleep apnea (adult) (pediatric); I10 Essential (primary) hypertension; J02.9 Acute pharyngitis, unspecified; K21.9 Gastro-esophageal reflux disease without esophagitis; K59.09 Other constipation; M17.12 Unilateral primary osteoarthritis, left knee; N30.90 Cystitis, unspecified without hematuria; R33.8 Other retention of urine; Z20.822 Contact with and (suspected) exposure to COVID-19; Z68.39 Body mass index [BMI] 39.0-39.9, adult; Z79.82 Long term (current) use of aspirin
CPT/HCPCS: 36415; 36556; 36600; 71045; 71275; 74174; 80053; 80202; 81001; 82274; 82375; 82550; 82570; 82805; 82810; 82948; 83050; 83605; 83690; 83735; 83880; 84100; 84145; 84300; 84484; 85014; 85018; 85025; 85027; 85055; 85610; 85730; 86850; 86900; 86901; 87040; 87086; 87181; 87493; 87637; 87641; 88305; 93005; 96361; 96365; 96366; 96367; 96375; 97161; 97165; 99291; A9270; C1751; G0378; J0692; J1650; J1720; J1836; J2003; J2060; J2405; J2470; J2543; J2704; J3370; J3475; J7030; J7120; P9045; Q9967

== ENCOUNTER 2024-01-27 13:42 | Observation (INO) | payer MEDICARE, OTHER, SELFPAY ==
[2024-01-27] VITALS (14 sets, daily range): BP systolic 77–135; BP diastolic 52–77; PULSE 93–111; RESP 16–32; TEMP 36.3–36.8; O2SAT 97–100; BMI 34.9
--- NOTE | ~2024-01-27 | CT_ITS ---
EXAMINATION: CT chest abdomen pelvis wo con DATE: 01/27/2024 14:48 INDICATION: Abdominal pain. TECHNIQUE: Computed tomography (CT) of the chest, abdomen, and pelvis was performed without intraveno us contrast. Automated exposure control and iterative reconstruction technique were employed. The dos e-length product was 1701.03 mGy-cm. COMPARISON: CT chest, abdomen, and pelvis 12/27/23 FINDINGS: CHEST CT: The visualized portions of the lung bases demonstrate minimal atelectasis on the left. Calcified left lung nodules are consistent with old granulomatous disease. No pleural effusion. The heart size is n ormal. There are coronary artery calcifications. No pericardial effusion. There is moderate thoracic spondylosis. There is mild chronic anterior wedging of multiple vertebral bodies. ABDOMEN/PELVIS CT: Calcifications in the liver and spleen are consistent with old granulomatous disease. The gallbladder , pancreas, adrenal glands, and kidneys are normal. There is no urolithiasis. There is liquid stool i n the colon suggesting diarrhea. There are no dilated loops of bowel. The appendix is normal. There a re no pathologically enlarged lymph nodes. There is no free intraperitoneal fluid. There is severe jacquelyn mbar spondylosis. IMPRESSION: 1. No specific etiology for the patient's symptoms. Reviewed, dictated and finalized at location B.
--- NOTE | 2024-01-27 13:57 | ECG_ITS ---
Test Date: 2024-01-27 14:28:25 Measurements Intervals [place] Rate: 105 P: 6 MD: 146 QRS: 5 QRSD: 85 T: 33 QT: 325 QTc: 430 Interpretive Statements SINUS TACHYCARDIA WITH OCCASIONAL SUPRAVENTRICULAR PREMATURE COMPLEXES NONSPECIFIC ST & T-WAVE ABNORMALITY ABNORMAL RHYTHM ECG Compared to ECG 12/28/2023 11:06:47 SINUS RHYTHM NOW PRESENT Electronically Signed On 01-28-2024 14:22:16 CDT by Yoli Bolton M.D.
--- NOTE | 2024-01-27 13:59 | ED.ABDPAIN ---
HPI - Abdominal Pain General Chief Complaint: Abdominal Pain <Dipti Gee APRN - Last Filed: 01/27/24 14:02> Stated Complaint: sob <Dipti Gee APRN - Last Filed: 01/27/24 14:02> Time Seen by Provider: 01/27/24 13:50 <Dipti Gee APRN - Last Filed: 01/27/24 14:02> Focused HPI: patient is a 73-year-old male who presents to the ER with concerns of generalized abdominal pain that has been going on for approximately 1 month. He reports the pain got significantly worse this morning and he is short of breath. Patient reports he was admitted to the hospital at the end of November for low blood pressure. He reports he has a history of CKD. Patient's last bowel movement was this morning. Patient says abdominal pain is significantly worsened left upper quadrant. He denies any chest pain at this time. GENERAL: Well-appearing, well-nourished, and in no acute distress. HEAD: Normocephalic, atraumatic. CHEST: Clear to auscultation. ?Tachypnea, mild respiratory distress. HEART: Tachycardia, regular rhythm. NEURO: ?Alert and oriented x3. Patient screened in triage and initial orders placed.? ?Additional care and disposition to be based upon?diagnostic testing and treatment. <Dipti Gee APRN - Last Filed: 01/27/24 14:02> Source: patient <Perry Silvestre MD - Last Filed: 01/27/24 16:52> Mode of arrival: EMS <Perry Silvestre MD - Last Filed: 01/27/24 16:52> Limitations: no limitations <Perry Silvestre MD - Last Filed: 01/27/24 16:52> History of Present Illness HPI narrative: 73-year-old with a history of hypertension, ischemic colitis, CKD is brought in from home with a complaint of abdominal pain, not feeling well, having chronic diarrhea. Patient states that he was admitted to the hospital few weeks ago had sepsis. Patient is being on antibiotic while he was in the hospital. Here also was tested for C diff which was negative. He denies any chest pain however this morning it was complaining of mild shortness of breath. No history of fever or chills. Denies any blood in the stool <Perry Silvestre MD - Last Filed: 01/27/24 16:52> MD elicited complaint: abdominal pain <MD Katharine Fine Last Filed: 01/27/24 16:52> Pertinent past history: none <MD Katharine Fine Last Filed: 01/27/24 16:52> Onset (ago): week(s) <Perry Silvestre MD - Last Filed: 01/27/24 16:52> Pain Consistency: constant <Perry Silvestre MD - Last Filed: 01/27/24 16:52> Location: diffuse <MD Katharine Fine Last Filed: 01/27/24 16:52> Severity: moderate <Perry Silvestre MD - Last Filed: 01/27/24 16:52> Quality: aching <MD Katharine Fine Last Filed: 01/27/24 16:52> Radiation: none <MD Katharine Fine Last Filed: 01/27/24 16:52> Migration to: no migration <Perry Silvestre MD - Last Filed: 01/27/24 16:52> Exacerbating factors: nothing <Perry Silvestre MD - Last Filed: 01/27/24 16:52> Relieving factors: nothing <MD Katharine Fine Last Filed: 01/27/24 16:52> Associated symptoms: denies other symptoms <Perry Silvestre MD - Last Filed: 01/27/24 16:52> Related Data Home Medications: Home Medications Medication Instructions Recorded Confirmed aspirin 81 mg tablet,delayed 81 mg PO DAILY 02/24/19 01/12/24 release hydrochlorothiazide 25 mg tablet 25 mg PO DAILY 07/18/21 01/12/24 gabapentin 300 mg capsule 300 mg PO Q12H 12/27/23 01/12/24 (Neurontin) <Dipti Gee APRN - Last Filed: 01/27/24 14:02> Allergies/Adverse Reactions: Allergies Allergy/AdvReac Type Severity Reaction Status Date / Time No Known Allergies Allergy Verified 01/27/24 13:48 <Dipti Gee APRN - Last Filed: 01/27/24 14:02> Review of Systems Review of Systems: All systems reviewed & are unremarkable except as noted in HPI and below <Perry Silvestre MD - Last Filed: 01/27/24 16:52> Constitutional: Constitutional: Reports no additional constitutional complaints <Perry Silvestre MD - Last Filed: 01/27/24 16:52> Eyes: Eyes: Reports no additional eye complaints <Perry Silvestre MD - Last Filed: 01/27/24 16:52> ENT: Reports system reviewed and no additional complaints, except as documented <Perry Silvestre MD - Last Filed: 01/27/24 16:52> Cardiovascular: Cardiovascular: Reports no additional cardiovascular complaints <Perry Silvestre MD - Last Filed: 01/27/24 16:52> Respiratory: Respiratory: Reports no additional respiratory complaints <Perry Silvestre MD - Last Filed: 01/27/24 16:52> Gastrointestinal: Gastrointestinal: Reports no additional gastrointestinal complaints <Perry Silvestre MD - Last Filed: 01/27/24 16:52> Musculoskeletal: Musculoskeletal: Reports no additional musculoskeletal complaints <Perry Silvestre MD - Last Filed: 01/27/24 16:52> Integumentary/Breasts: Skin/Breast: Reports system reviewed and no additional complaints, except as docu <Perry Silvestre MD - Last Filed: 01/27/24 16:52> Neurologic: Reports system reviewed and no additional complaints, except as documented <Perry Silvestre MD - Last Filed: 01/27/24 16:52> Endocrine: Endocrine: Reports no additional endocrine complaints <Perry Silvestre MD - Last Filed: 01/27/24 16:52> PMF Past Medical History Medical History: Medical History Bilateral carpal tunnel syndrome Chronic insomnia Chronic right-sided low back pain with right-sided sciatica Essential (primary) hypertension Ganglion cyst of finger History of rectal polyps IFG (impaired fasting glucose) Ischemic colitis Metabolic syndrome Mixed hyperlipidemia Obesity BRITTANI (obstructive sleep apnea) Osteoarthritis of left knee <Dipti Gee APRN - Last Filed: 01/27/24 14:02> Surgical History Surgical History: Surgical History History of hand surgery History of retinal tear Status post arthroscopy of right knee (~01/07/14) <Dipti Gee APRN - Last Filed: 01/27/24 14:02> Family History Family History: Family History Father Hypertension Family history of malignant neoplasm Mother Hypertension Family history of malignant neoplasm <Dipti Gee WORKING MANAGER - Last Filed: 01/27/24 14:02> Social History Social History: Social History Social History: Patient reports he has been to his current for 36 years. He has 1 biological daughter which he is estranged from. He has couple of step children. 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 He is a lifelong nonsmoker. He does drink a few alcoholic beverages a week. He denies any illicit substance use. Code status: Full code Surrogate decision maker: Smoking status: Never smoker Second hand tobacco smoke exposure: No Alcohol intake: current Alcohol use details: Occasionally Substance use: never Substance use type: does not use Do You Feel Safe in your Home?: Yes Lack of Transportation: No Lack of Food: Never True Current Housing: I Have Housing Concerned About Future Housing: No Difficulty Paying Gas/Electric Bills: No Difficulty Paying for Meds: No Currently Unemployed: No Education: Bachelor's Degree Difficulty w/ Childcare or Family Care: No Living arrangements: with family Occupation/Education: retired Gender identity (if verbalized by the patient): Male Sexual Orientation (if Verbalized by the Patient): Straight or Heterosexual 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: No <Dipti Gee APRN - Last Filed: 01/27/24 14:02> Exam Narrative: GENERAL: Well-appearing, well-nourished, and in no acute distress. HEAD: Normocephalic, atraumatic. EYES: PERRLA and EOMI. ENT: Nares clear, NECK: Supple. CHEST: Clear to auscultation. No respiratory distress. HEART: Regular rate and rhythm. No murmur heard. Normal peripheral pulses. ABDOMEN: Soft, nontender, nondistended, normal active bowel sounds. EXTREMITIES: Normal range of motion. No edema. SKIN: Warm, dry, no rash. NEURO: No focal deficits. Alert and oriented x3. PSYCH: Normal mood and affect. <Perry Silvestre MD - Last Filed: 01/27/24 16:52> Course Course Emergency Course: Patient comfortably resting had no further episodes of nausea or vomiting or diarrhea while here in the ER his exam is benign. I did inform him and his about the lab work and CT findings a agreeable with admission. <Perry Silvestre MD - Last Filed: 01/27/24 16:52> Vital Signs Vital signs: Vital Signs Temperature 36.3 C L 01/27/24 13:44 Pulse Rate 103 H 01/27/24 13:44 Respiratory Rate 22 H 01/27/24 13:44 Blood Pressure 115/71 01/27/24 13:44 Pulse Oximetry 100 01/27/24 13:44 Oxygen Delivery Room Air 01/27/24 13:44 Temperature 36.3 C L 01/27/24 13:44 Pulse Rate 100 01/27/24 16:10 Respiratory Rate 17 01/27/24 16:10 Blood Pressure 117/72 01/27/24 16:10 Pulse Oximetry 99 01/27/24 16:10 Oxygen Delivery Room Air 01/27/24 13:44 <Dipti Gee APRN - Last Filed: 01/27/24 14:02> Vital Signs Temperature 36.3 C L 01/27/24 13:44 Pulse Rate 103 H 01/27/24 13:44 Respiratory Rate 22 H 01/27/24 13:44 Blood Pressure 115/71 01/27/24 13:44 Pulse Oximetry 100 01/27/24 13:44 Oxygen Delivery Room Air 01/27/24 13:44 Temperature 36.3 C L 01/27/24 13:44 Pulse Rate 100 01/27/24 16:10 Respiratory Rate 17 01/27/24 16:10 Blood Pressure 117/72 01/27/24 16:10 Pulse Oximetry 99 01/27/24 16:10 Oxygen Delivery Room Air 01/27/24 13:44 <Perry Silvestre MD - Last Filed: 01/27/24 16:52> MDM - Abdominal Pain Differential Diagnosis Differential diagnosis: Likely abdominal pain, diverticulitis, gastroenteritis and other (Functional diarrhea versus antibiotic indused diarrhea) <Perry Silvestre MD - Last Filed: 01/27/24 16:52> Medical Records Attestation: I reviewed the patient's medical records. <Perry Silvestre MD - Last Filed: 01/27/24 16:52> Lab Data Attestation: I reviewed the patient's lab results. <Perry Silvestre MD - Last Filed: 01/27/24 16:52> Result diagrams: 01/27/24 14:40 01/27/24 14:40 <Dipti Gee APRN - Last Filed: 01/27/24 14:02> Labs: Lab Results 01/27/24 01/27/24 01/27/24 Range/Units 14:40 14:40 16:38 WBC 6.2 (4.5-10.0) K/mm3 RBC 3.85 L (4.6-6.20) M/mm3 Hgb 11.6 L (14.0-18.0) g/dL Hct 32.1 L (42.0-52.0) % MCV 83.4 (80-100) fl MCH 30.1 (26-34) pg MCHC 36.1 H (32-36) g/dl RDW 14.1 (11.5-14.5) % Plt Count 257 D (150-375) k/mm3 MPV 10.7 H (7.4-10.4) fl Immature Gran % (Auto) 0.3 (0-0.5) % Neut % (Auto) 66.7 (45.5-73.1) % Lymph % (Auto) 20.4 (18.3-44.2) % [place] % (Auto) 10.7 H (2.6-8.5) % Eos % (Auto) 1.6 (0-4.4) % Baso % (Auto) 0.3 (0.2-1.2) % Lymph # (Auto) 1.27 (0.9-3.2) K/mm3 [place] # (Auto) 0.7 H (0.1-0.6) K/mm3 Eos # (Auto) 0.1 (0-0.3) K/mm3 Baso # (Auto) 0.0 (0.0-0.1) K/mm3 Abs Immat Gran (auto) 0.02 (0.00-0.031) K/mm3 Absolute Neuts (auto) 4.2 (1.3-6.7) K/mm3 Absolute Nucleated RBC 0.000 (0.0-0.012) K/mm3 Nucleated RBC % 0.0 (0.0-0.2) % Atypical Lymphocytes Present Platelet Estimate Adequate (Adequate) Ovalocytes 1+ Schistocytes None seen PT 16.1 H (11.1-14.7) Seconds INR 1.3 APTT 29.3 (22.3-36.8) Seconds D-Dimer 0.73 H Cancelled (<0.48) ug/mL Sodium 130 L (137-145) mmol/L Potassium 3.0 L (3.4-5.0) mmol/L Chloride 96 L (98-107) mmol/L Carbon Dioxide 16 L (22-30) mmol/L Anion Gap 18 H (4-12) mmol/L BUN 37 H D (9-20) mg/dL Creatinine 1.20 (0.7-1.3) mg/dL Estim Creat Clear Calc 67 ml/min Estimated GFR 60 (59 - ) Glucose 114 H (65-110) mg/dL Lactic Acid 1.7 (0.7-2.0) mmol/L Calcium 8.6 (8.4-10.2) mg/dL Total Bilirubin 1.3 (0.2-1.3) mg/dL AST 32 (17-59) U/L ALT 38 (6-50) U/L Alkaline Phosphatase 67 (38-126) U/L Troponin I 0.078 H* (0.000-0.034) ng/mL Total Protein 8.0 (6.3-8.2) g/dL Albumin 4.2 (3.5-5.1) g/dL Lipase 83 (23-300) U/L Urine Color Pending Urine Appearance Pending Urine pH Pending Ur Specific [place] Pending Urine Protein Pending Urine Glucose (UA) Pending Urine Ketones Pending Ur Blood (Man) Pending Urine Nitrate Pending Urine Bilirubin Pending Urine Urobilinogen Pending Leukocyte Esterase Rfl Pending <Dipti LEnma Gee, WORKING MANAGER - Last Filed: 01/27/24 14:02> Lab Results 01/27/24 01/27/24 01/27/24 Range/Units 14:40 14:40 16:38 WBC 6.2 (4.5-10.0) K/mm3 RBC 3.85 L (4.6-6.20) M/mm3 Hgb 11.6 L (14.0-18.0) g/dL Hct 32.1 L (42.0-52.0) % MCV 83.4 (80-100) fl MCH 30.1 (26-34) pg MCHC 36.1 H (32-36) g/dl RDW 14.1 (11.5-14.5) % Plt Count 257 D (150-375) k/mm3 MPV 10.7 H (7.4-10.4) fl Immature Gran % (Auto) 0.3 (0-0.5) % Neut % (Auto) 66.7 (45.5-73.1) % Lymph % (Auto) 20.4 (18.3-44.2) % [place] % (Auto) 10.7 H (2.6-8.5) % Eos % (Auto) 1.6 (0-4.4) % Baso % (Auto) 0.3 (0.2-1.2) % Lymph # (Auto) 1.27 (0.9-3.2) K/mm3 [place] # (Auto) 0.7 H (0.1-0.6) K/mm3 Eos # (Auto) 0.1 (0-0.3) K/mm3 Baso # (Auto) 0.0 (0.0-0.1) K/mm3 Abs Immat Gran (auto) 0.02 (0.00-0.031) K/mm3 Absolute Neuts (auto) 4.2 (1.3-6.7) K/mm3 Absolute Nucleated RBC 0.000 (0.0-0.012) K/mm3 Nucleated RBC % 0.0 (0.0-0.2) % Atypical Lymphocytes Present Platelet Estimate Adequate (Adequate) Ovalocytes 1+ Schistocytes None seen PT 16.1 H (11.1-14.7) Seconds INR 1.3 APTT 29.3 (22.3-36.8) Seconds D-Dimer 0.73 H Cancelled (<0.48) ug/mL Sodium 130 L (137-145) mmol/L Potassium 3.0 L (3.4-5.0) mmol/L Chloride 96 L (98-107) mmol/L Carbon Dioxide 16 L (22-30) mmol/L Anion Gap 18 H (4-12) mmol/L BUN 37 H D (9-20) mg/dL Creatinine 1.20 (0.7-1.3) mg/dL Estim Creat Clear Calc 67 ml/min Estimated GFR 60 (59 - ) Glucose 114 H (65-110) mg/dL Lactic Acid 1.7 (0.7-2.0) mmol/L Calcium 8.6 (8.4-10.2) mg/dL Total Bilirubin 1.3 (0.2-1.3) mg/dL AST 32 (17-59) U/L ALT 38 (6-50) U/L Alkaline Phosphatase 67 (38-126) U/L Troponin I 0.078 H* (0.000-0.034) ng/mL Total Protein 8.0 (6.3-8.2) g/dL Albumin 4.2 (3.5-5.1) g/dL Lipase 83 (23-300) U/L Urine Color Pending Urine Appearance Pending Urine pH Pending Ur Specific [place] Pending Urine Protein Pending Urine Glucose (UA) Pending Urine Ketones Pending Ur Blood (Man) Pending Urine Nitrate Pending Urine Bilirubin Pending Urine Urobilinogen Pending Leukocyte Esterase Rfl Pending <Perry Silvestre MD - Last Filed: 01/27/24 16:52> Imaging Data Radiologist's impression: ITS Impressions Chest/Abdomen/Pelvis CT 01/27/24 14:51 IMPRESSION: 1. No specific etiology for the patient's symptoms. <Dipti Gee APRN - Last Filed: 01/27/24 14:02> ITS Impressions Chest/Abdomen/Pelvis CT 01/27/24 14:51 IMPRESSION: 1. No specific etiology for the patient's symptoms. <Perry Silvestre MD - Last Filed: 01/27/24 16:52> ECG Data EKG #1: ECG completion date: 01/27/24 <Perry Silvestre MD - Last Filed: 01/27/24 16:52> ECG completion time: 14:28 <Perry Silvestre MD - Last Filed: 01/27/24 16:52> tachycardia (105), sinus rhythm, no ectopy, no ST changes and NL axis <Perry Silvestre MD - Last Filed: 01/27/24 16:52> Discharge Plan Discharge Clinical Impression: Abdominal pain, Diarrhea, Elevated troponin I level <Dipti Gee APRN - Last Filed: 01/27/24 14:02> Patient Disposition: Still a Patient <Dipti Gee APRN - Last Filed: 01/27/24 14:02> Condition: Stable <Dipti Gee APRN - Last Filed: 01/27/24 14:02> Instructions: Antibiotic Form <Dipti Gee APRN - Last Filed: 01/27/24 14:02> Prescriptions: No Action hydrochlorothiazide 25 mg tablet 25 mg PO DAILY Hold Instructions: .Provider Order gabapentin [Neurontin] 300 mg capsule 300 mg PO Q12H docusate sodium 100 mg Capsule 100 mg PO Q12HR Qty: 30 0RF aspirin 81 mg tablet,delayed release (DR/EC) 81 mg PO DAILY atorvastatin 40 mg tablet See Rx Instructions .ROUTE .COMPLEX Qty: 90 2RF Dose Instruction: TAKE 1 TABLET DAILY Rx Instructions: TAKE 1 TABLET DAILY atenolol 25 mg tablet See Rx Instructions .ROUTE .COMPLEX Qty: 90 2RF Dose Instruction: TAKE 1 TABLET DAILY Rx Instructions: TAKE 1 TABLET DAILY lisinopril 30 mg tablet 30 mg PO DAILY Qty: 90 2RF pantoprazole 40 mg tablet,delayed release (DR/EC) See Rx Instructions .ROUTE .COMPLEX Qty: 90 3RF Dose Instruction: TAKE 1 TABLET EVERY MORNING Rx Instructions: TAKE 1 TABLET EVERY MORNING loratadine 10 mg tablet See Rx Instructions .ROUTE .COMPLEX Qty: 90 2RF Dose Instruction: TAKE 1 TABLET DAILY Rx Instructions: TAKE 1 TABLET DAILY fenofibrate 160 mg tablet See Rx Instructions .ROUTE .COMPLEX Qty: 90 2RF Dose Instruction: TAKE 1 TABLET DAILY Rx Instructions: TAKE 1 TABLET DAILY zolpidem 12.5 mg tablet,ext release multiphase 12.5 mg PO QHS Qty: 30 0RF Zepbound 2.5 mg/0.5 mL pen injector 2.5 mg subcut WEEKLY Qty: 2 1RF Rx Instructions: for 4 weeks <Dipti Gee APRN - Last Filed: 01/27/24 14:02> Follow-up/Referrals: Huber Culp MD [Primary Care Provider] - <Dipti Gee APRN - Last Filed: 01/27/24 14:02> Time of Disposition: 16:42 <Dipti Gee APRN - Last Filed: 01/27/24 14:02> 16:42 <Perry Silvestre MD - Last Filed: 01/27/24 16:52>
[2024-01-27 14:54] LABS: Basophils Percent Auto 0.3 % (0.2-1.2); Eosinophils Absolute Auto 0.1 K/mm3 (0-0.3); Eosinophils Percent Auto 1.6 % (0-4.4); Hematocrit 32.1 % (42.0-52.0); Hemoglobin 11.6 g/dL (14.0-18.0); Immature Granulocyte Absolute 0.02 K/mm3 (0.00-0.031); Immature Granulocyte Percent A 0.3 % (0-0.5); Lymphocytes Absolute Auto 1.27 K/mm3 (0.9-3.2); Lymphocytes Percent Auto 20.4 % (18.3-44.2); Mean Corpuscular HGB Conc 36.1 g/dl (32-36); Mean Corpuscular Hemoglobin 30.1 pg (26-34); Mean Corpuscular Volume 83.4 fl (80-100); Mean Platelet Volume 10.7 fl (7.4-10.4); Monocytes Absolute Auto 0.7 K/mm3 (0.1-0.6); Monocytes Percent Auto 10.7 % (2.6-8.5); Neutrophils Absolute Auto 4.2 K/mm3 (1.3-6.7); Neutrophils Percent Auto 66.7 % (45.5-73.1); Platelet Count Result 257 k/mm3 (150-375); Red Blood Count 3.85 M/mm3 (4.6-6.20); Red Cell Distribution Width 14.1 % (11.5-14.5); White Blood Count 6.2 K/mm3 (4.5-10.0)
[2024-01-27 15:04] LABS: Lactic Acid Reflex 1.7 mmol/L (0.7-2.0)
[2024-01-27 15:05] LABS: Alanine Aminotransferase 38 U/L (6-50); Albumin Level 4.2 g/dL (3.5-5.1); Alkaline Phosphatase 67 U/L (38-126); Anion Gap 18 mmol/L (4-12); Aspartate Amino Transferase 32 U/L (17-59); Atypical Lymphocytes Present; Bilirubin,Total 1.3 mg/dL (0.2-1.3); Blood Urea Nitrogen 37 mg/dL (9-20); Calcium 8.6 mg/dL (8.4-10.2); Carbon Dioxide 16 mmol/L (22-30); Chloride 96 mmol/L (98-107); Estimated CRCL calculation 67 ml/min; Estimated Glomerular Filt Rate 60; Glucose 114 mg/dL (65-110); Lipase 83 U/L (23-300); Ovalocytes 1+; Platelet Estimate Adequate (Adequate); Schistocytes None Seen; Sodium 130 mmol/L (137-145)
[2024-01-27 15:15] LABS: INR 1.3; Prothrombin Time 16.1 Seconds (11.1-14.7)
[2024-01-27 15:16] LABS: Partial Thromboplastin Time 29.3 Seconds (22.3-36.8)
[2024-01-27 15:18] LABS: Troponin I 0.078 ng/mL (0.000-0.034)
[2024-01-27 15:20] LABS: D Dimer 0.73 ug/mL (<0.48)
[2024-01-27] MEDS: SODIUM CHLORIDE 0.9% IV 1,000 ML 999 ML IV CONT (16:07)
[2024-01-27] MEDS: DICYCLOMINE HCL INJ 20 MG/2 ML VIAL IM (16:07)
[2024-01-27] MEDS: HYDROcodone/acetaminophen (*CRX) 5-325 MG TABLET 1 TAB PO (16:07)
[2024-01-27 17:18] LABS: Add Urine Microscopic? YES; Appearance Urine Cloudy (Clear); Bacteria Urine None Seen /hpf; Bilirubin Urine 2+ (Negative); Blood Urine Negative (Negative); Color Urine Dark Yellow (Yellow); Glucose Urine UA Negative (Negative); Ketones Urine 1+ mg/dL (Negative); Leukocyte Esterase Ur Trace LEU/UL (Negative); Need Manual Microscopic Reviewed; Nitrate Urine Negative (Negative); Protein Urine 1+ mg/dL (Negative); RBC Urine 0-2 /hpf (0-2); Specific Grav Ur 1.028 (1.001-1.035); Squamous Epithelial Cell Urine Few /hpf (Few); WBC Urine 0-5 /hpf (0-3); pH Urine 5.5 (5.0-9.0)
--- NOTE | 2024-01-27 17:20 | PM.IMHP ---
H&P: HPI History of Present Illness Date/Time: 01/27/24 17:20 Chief Complaint: Abdominal pain. Narrative: This is a pleasant 73-year-old male with history of hypertension, hyperlipidemia, chronic kidney disease, gastroesophageal reflux disease, obstructive sleep apnea, and colitis who presented to the emergency department for evaluation of abdominal pain. The patient provides the following history. He was admitted to the hospital at the end of November 2023 with septic shock after presenting with vasovagal syncope while on the toilet. It was initially thought that he had cystitis however urine culture was negative. Blood cultures grew Gram-positive cocci in clusters in both aerobic bottles, 1 growing Staph epidermidis and another growing Staph hominis. Upper and lower endoscopies were performed due to rectal bleeding. EGD was unremarkable but colonoscopy showed colitis and ischemic colitis in the mid transverse, descending, and sigmoid colon as well as the rectosigmoid region. Pathology of the colon biopsy showed severe acute ischemic colitis with ulcerations. He has been doing okay since that time but continues to have intermittent abdominal discomfort and diarrhea. He reports having a gurgling in almost cramping like sensation prior to his episodes of diarrhea which he describes as malodorous, brown, and watery. He can have anywhere from 4 to greater than 20 episodes of diarrhea a day. He describes it as malodorous, brown and watery stools. This morning the pain in his abdomen seemed to be worsening came in for evaluation. He was previously on MiraLax and Colace but stopped that well over a week ago. He has not noticed any blood or mucus in the stool. He denies fever, chills, and sweats. His appetite has been decreased and his sense of taste seems to be off but he denies nausea and vomiting. No sick contacts. Of note, troponins were drawn in the ED however the patient does not have any chest pain whatsoever. In the ED: He was afebrile on arrival with stable vital signs. Labs were significant for WBC count of 6.2, hemoglobin 11.6, sodium 130, potassium 3.0, chloride 96, carbon dioxide 16, anion gap 18, BUN 37, creatinine 1.20, lactic acid 1.7, troponin 0.078, lipase 83. CT of the chest, abdomen, and pelvis showed liquid stool in the colon suggestive of diarrhea but no acute findings. EKG showed sinus tachycardia with a rate of 105 and occasional ectopy as well as nonspecific ST T-wave abnormalities. He is being admitted in this setting for further evaluation close monitoring. Review of Systems Review of Systems: 12 systems were reviewed and are negative except for as per HPI. [facility] Past Medical History Medical History (Updated 01/27/24 @ 23:44 by Madina Townsend PA-C) Chronic insomnia Chronic right-sided low back pain with right-sided sciatica Essential (primary) hypertension History of rectal polyps Hypertension Impaired fasting glucose Ischemic colitis Metabolic syndrome Mixed hyperlipidemia Obesity Obstructive sleep apnea on CPAP Osteoarthritis of left knee Surgical History Surgical History (Updated 01/27/24 @ 23:40 by Madina Townsend PA-C) History of arthroscopy of right knee History of cataract extraction with lens replacement History of hand surgery History of retinal tear Family History Family History Father Hypertension Family history of malignant neoplasm Mother Hypertension Family history of malignant neoplasm Social History Social History (Updated 01/27/24 @ 23:41 by Madina Townsend PA-C) Social History: Surrogate medical decision maker: Yaritza Gatesood, spouse. Code status: Full code. Smoking status: Never smoker Second hand tobacco smoke exposure: No Alcohol intake: former Alcohol use details: Occasionally Substance use: never Substance use type: does not use Do You Feel Safe in your Home?: Yes Lack of Transportation: YES Lack of Food: Never True Current Housing: I Have Housing Concerned About Future Housing: No Difficulty Paying Gas/Electric Bills: No Difficulty Paying for Meds: No Currently Unemployed: No Education: Bachelor's Degree Difficulty w/ Childcare or Family Care: No Living arrangements: with family Additional living arrangements comments: . Lives with spouse in [place]. 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: No Meds Home Medications and Allergies Home Medications Medication Instructions Recorded Confirmed Type aspirin 81 mg tablet,delayed 81 mg PO DAILY 02/24/19 01/27/24 History release hydrochlorothiazide 25 mg tablet 25 mg PO DAILY 07/18/21 01/27/24 History lisinopril 30 mg tablet 30 mg PO DAILY #90 tabs 02/13/23 01/27/24 Rx zolpidem 12.5 mg tablet,extended 12.5 mg PO QHS #30 tabs 12/26/23 01/27/24 Rx release,multiphase docusate sodium 100 mg capsule 100 mg PO Q12HR #30 caps 12/31/23 01/27/24 Rx tirzepatide (weight loss) 2.5 2.5 mg (0.5 mL) subcut WEEKLY #2 mL 01/05/24 01/27/24 Rx mg/0.5 mL subcutaneous pen injector (Zepbound) atenolol 25 mg tablet 25 mg PO DAILY 01/27/24 01/27/24 History atorvastatin 40 mg tablet 40 mg PO DAILY 01/27/24 01/27/24 History fenofibrate 160 mg tablet 160 mg PO DAILY 01/27/24 01/27/24 History loratadine 10 mg tablet 10 mg PO DAILY 01/27/24 01/27/24 History pantoprazole 40 mg tablet,delayed 40 mg PO DAILY 01/27/24 01/27/24 History release Allergies Allergy/AdvReac Type Severity Reaction Status Date / Time No Known Allergies Allergy Verified 01/27/24 13:48 Vital Signs Vital Signs - 24 hr 01/27/24 13:44 01/27/24 14:30 01/27/24 16:10 Temperature 97.4 F L Pulse Rate 103 H 100 100 Respiratory Rate 22 H 18 17 Blood Pressure 115/71 108/56 L 117/72 Pulse Oximetry 100 99 99 Oxygen Delivery Room Air Exam Narrative: General: Nontoxic-appearing gentleman lying on his right side in bed. Weight: 116.7 kg. BMI: 34.9. HEENT: PERRL, EOMI. Sclera anicteric. Tacky mucous membranes. Neck: Supple. Respiratory: Lungs are clear to auscultation bilaterally. Cardiovascular: Regular rate and rhythm with S1-S2. Gastrointestinal: Abdomen is soft, nontender, and nondistended with positive bowel sounds. Skin: Warm and dry. Extremities: No cyanosis, clubbing, or edema. Radial and pedal pulses intact. Neurological: Alert. Cranial nerves 2-12 are grossly intact. No gross focal deficits to casual conversation. Psychiatric: Pleasant and cooperative with normal mood and affect. Judgment and insight intact. H&P: Results Labs Labs: Short CBC 01/27/24 Range/Units 14:40 WBC 6.2 (4.5-10.0) K/mm3 Hgb 11.6 L (14.0-18.0) g/dL Hct 32.1 L (42.0-52.0) % Plt Count 257 D (150-375) k/mm3 BMP 01/27/24 14:40 Sodium 130 L Potassium 3.0 L Chloride 96 L Carbon Dioxide 16 L BUN 37 H D Creatinine 1.20 Glucose 114 H Calcium 8.6 Cardiac Enzymes 01/27/24 Range/Units 14:40 Troponin I 0.078 H* (0.000-0.034) ng/mL Liver Function 01/27/24 Range/Units 14:40 Total Bilirubin 1.3 (0.2-1.3) mg/dL AST 32 (17-59) U/L ALT 38 (6-50) U/L Alkaline Phosphatase 67 (38-126) U/L Albumin 4.2 (3.5-5.1) g/dL Urine 01/27/24 Range/Units 16:38 Urine Color Dark yellow (Yellow) Urine Appearance Cloudy H (Clear) Urine pH 5.5 (5.0-9.0) Ur Specific [place] 1.028 (1.001-1.035) Urine Protein 1+ H (Negative) mg/dL Urine Glucose (UA) Negative (Negative) mg/dL Impressions Chest/Abdomen/Pelvis CT 01/27/24 14:51 IMPRESSION: 1. No specific etiology for the patient's symptoms. Assessment and Plan Assessment and plan (1) Elevated troponin I level: Code(s): R79.89 - Other specified abnormal findings of blood chemistry Status: Acute (2) Dehydration: Code(s): E86.0 - Dehydration Status: Acute (3) Electrolyte abnormality: Code(s): E87.8 - Other disorders of electrolyte and fluid balance, not elsewhere classified Status: Acute (4) Diarrhea: Qualifiers: Diarrhea type: unspecified type Qualified Code(s): R19.7 - Diarrhea, unspecified Code(s): R19.7 - Diarrhea, unspecified Status: Acute (5) Hypertension: Code(s): I10 - Essential (primary) hypertension Status: Acute (6) Obstructive sleep apnea on CPAP: Code(s): G47.33 - Obstructive sleep apnea (adult) (pediatric) Status: Acute Plan The patient presented to the emergency department for evaluation of abdominal pain and diarrhea as detailed in HPI. Labs, imaging, EKG, and all reports were personally reviewed. CT scan shows liquid stool in the colon but no other significant findings. He had previously been on MiraLax and Colace but stopped taking those well over a week and half ago. Check C diff and stool culture. GI has been consulted. He looks quite dehydrated and has multiple electrolyte abnormalities due to ongoing diarrhea. Potassium and magnesium will be replaced. Continue normal saline overnight. Regarding the troponin, it is unclear why these were ordered as he has not had any chest pain. EKG showed some nonspecific findings. We will continue to trend his troponins and it looks like cardiology was consulted by the ED physician and their input is appreciated. Blood pressures have been stable. Hold hydrochlorothiazide given multiple electrolyte abnormalities. The rest of his home medications will be reviewed and resumed as appropriate. Findings and treatment plan were discussed with the patient. Questions were solicited and answered to satisfaction. The patient's medical management will be taken over by the hospitalist team in a.m. Quality VTE Prophylaxis VTE prophylaxis: mechanical ordered The patient has been admitted under observation status. Hospitalist [facility] Advance Care Plan I have confirmed that the patient's Advanced Care Plan is present, code status is documented, or surrogate decision maker is listed in patient medical record.: Yes Medication Reconciliation I have utilized all available resources to obtain, update and review the patients current medications (includes all prescriptions, OTC, herbals, cannabis, and nutritional supplements).: Yes
--- NOTE | 2024-01-27 17:36 | PC.NURSE ---
Attempted to call IMU for report at this time. No answer.
[2024-01-27] MEDS: SODIUM CHLORIDE 0.9% IV 1,000 ML 125 ML IV CONT (20:18)
[2024-01-27] MEDS: ZOLPIDEM TARTRATE (*CRX) 5 MG TABLET 10 MG PO (20:18)
[2024-01-27] MEDS: ONDANSETRON INJ 4 MG/2 ML VIAL IV PUSH (20:20)
[2024-01-27 20:45] LABS: Anion Gap 15 mmol/L (4-12); Blood Urea Nitrogen 38 mg/dL (9-20); Calcium 8.3 mg/dL (8.4-10.2); Carbon Dioxide 22 mmol/L (22-30); Chloride 95 mmol/L (98-107); Estimated CRCL calculation 65 ml/min; Estimated Glomerular Filt Rate 60; Glucose 91 mg/dL (65-110); Magnesium 1.2 mg/dL (1.6-2.3); Potassium 2.8 mmol/L (3.4-5.0); Sodium 132 mmol/L (137-145)
[2024-01-27 20:55] LABS: Troponin I 0.059 ng/mL (0.000-0.034)
[2024-01-27] MEDS: POTASSIUM CHLORIDE INJ 40 MEQ in SODIUM CHLORIDE 0.9% IV 500 ML 130 MEQ IVPB (21:57)
[2024-01-27] MEDS: MAGNESIUM SULFATE 3GM/D5W100ML 3 GM/100 ML BAG IVPB (22:10)
[2024-01-27] MEDS: POTASSIUM CHLORIDE 20 MEQ ER TABLET 40 MEQ PO (22:11)
[2024-01-28] VITALS (22 sets, daily range): BP systolic 114–130; BP diastolic 56–66; PULSE 73–108; RESP 16–98; TEMP 36.6–37.2; O2SAT 97–100; BMI 35.2
[2024-01-28 00:10] LABS: Troponin I 0.047 ng/mL (0.000-0.034)
[2024-01-28 02:35] LABS: Basophils Percent Auto 0.5 % (0.2-1.2); Eosinophils Absolute Auto 0.3 K/mm3 (0-0.3); Eosinophils Percent Auto 4.6 % (0-4.4); Hematocrit 28.6 % (42.0-52.0); Hemoglobin 10.1 g/dL (14.0-18.0); Immature Granulocyte Absolute 0.02 K/mm3 (0.00-0.031); Immature Granulocyte Percent A 0.3 % (0-0.5); Lymphocytes Absolute Auto 1.47 K/mm3 (0.9-3.2); Lymphocytes Percent Auto 23.5 % (18.3-44.2); Mean Corpuscular HGB Conc 35.3 g/dl (32-36); Mean Corpuscular Hemoglobin 30.1 pg (26-34); Mean Corpuscular Volume 85.1 fl (80-100); Mean Platelet Volume 10.2 fl (7.4-10.4); Monocytes Absolute Auto 0.8 K/mm3 (0.1-0.6); Monocytes Percent Auto 12.6 % (2.6-8.5); Neutrophils Absolute Auto 3.7 K/mm3 (1.3-6.7); Neutrophils Percent Auto 58.5 % (45.5-73.1); Platelet Count Result 215 k/mm3 (150-375); Red Blood Count 3.36 M/mm3 (4.6-6.20); Red Cell Distribution Width 14.2 % (11.5-14.5); White Blood Count 6.3 K/mm3 (4.5-10.0)
[2024-01-28 02:45] LABS: Anion Gap 13 mmol/L (4-12); Blood Urea Nitrogen 32 mg/dL (9-20); Calcium 8.1 mg/dL (8.4-10.2); Carbon Dioxide 20 mmol/L (22-30); Chloride 99 mmol/L (98-107); Estimated CRCL calculation 78 ml/min; Estimated Glomerular Filt Rate > 60; Glucose 90 mg/dL (65-110); Potassium 3.6 mmol/L (3.4-5.0); Sodium 132 mmol/L (137-145)
[2024-01-28 02:58] LABS: Ovalocytes 1+; Platelet Estimate Adequate (Adequate); Schistocytes None Seen
[2024-01-28 03:02] LABS: Troponin I 0.053 ng/mL (0.000-0.034)
[2024-01-28 03:21] LABS: Magnesium 1.9 mg/dL (1.6-2.3)
[2024-01-28 03:27] LABS: Toxigenic C. Diff NEGATIVE (NEGATIVE)
[2024-01-28] MEDS: SODIUM CHLORIDE 0.9% IV 1,000 ML 125 ML IV CONT ×3 (04:52→20:11)
[2024-01-28] MEDS: ASPIRIN 81 MG ENTERIC TABLET PO (09:29)
[2024-01-28] MEDS: FENOFIBRATE 160 MG TABLET PO (09:29)
[2024-01-28] MEDS: ATORVASTATIN 40 MG TABLET PO (09:29)
[2024-01-28] MEDS: atenoloL 25 MG TABLET PO (09:30)
[2024-01-28] MEDS: LORATADINE 10 MG TABLET PO (09:30)
--- NOTE | 2024-01-28 09:32 | P.PNIM_ITS ---
Progress Note: A&P Assessment and Plan (1) Diarrhea: Qualifiers: Diarrhea type: unspecified type Qualified Code(s): R19.7 - Diarrhea, unspecified Code(s): R19.7 - Diarrhea, unspecified Status: Acute Assessment and Plan: Per chart review, patient can have anywhere from 4 to greater than 20 episodes of diarrhea a day. He describes it as malodorous, brown and watery stools. - c diff negative - stool culture ordered - CT chest/abdomen/pelvis: There is liquid stool in the colon suggesting diarrhe a. There are no dilated loops of bowel. - EGD 12/30/23: unremarkable - Colonoscopy 12/30/23: ischemic colitis in the mid transverse, descending, and sigmoid colon as well as the rectosigmoid region. Confirmed with biopsy. - GI consulted (2) Electrolyte abnormality: Code(s): E87.8 - Other disorders of electrolyte and fluid balance, not elsewhere classified Status: Acute Assessment and Plan: Likely secondary to ongoing diarrhea. - Monitor (3) Elevated troponin I level: Code(s): R79.89 - Other specified abnormal findings of blood chemistry Status: Acute Assessment and Plan: Regarding the troponin, it is unclear why these were ordered as he has not had any chest pain. EKG showed some nonspecific findings. We will continue to trend his troponins and it looks like cardiology was consulted by the ED physician and their input is appreciated. - Cardiology consulted Per cardiology, there is no explainable reason why these were sampled per chart review. This does not indicate any evidence of an acute coronary syndrome and does merit any further cardiac investigation while he is in the hospital. Cardiology signed off. (4) Hypertension: Code(s): I10 - Essential (primary) hypertension Status: Acute Assessment and Plan: Chronic, well controlled on home medications. - Atenolol 25 mg daily - holding HCTZ due to electrolyte abnormalities - monitor (5) Obstructive sleep apnea on CPAP: Code(s): G47.33 - Obstructive sleep apnea (adult) (pediatric) Status: Acute Assessment and Plan: continue cpap Time Spent With Patient Time with patient: 25 - 35 minutes Subjective Date/time seen: 01/28/24 09:32 Interval history: 73-year-old male with history of hypertension, hyperlipidemia, chronic kidney disease, gastroesophageal reflux disease, obstructive sleep apnea, and colitis who presented to the emergency department for evaluation of abdominal pain. Patient is pleasant sitting on the side of his bed with at bedside. Patient has had 8 + episodes of diarrhea today. He denies any blood in the stool. He states that this diarrhea has been ongoing since previous admission at the beginning of the month. He endorses slight LLQ pain as well. He denies nausea/vomiting and is tolerated his diet well. GI is consulted. Patient denies chest pain, shortness of breath, and palpitation. He is ambulating around room without assistance. Review of Systems 2 Review of Systems: All systems reviewed & are unremarkable except as noted in HPI and below Exam Narrative: AF HR 76 RR 18 SPO2 100 BP 121/58 General: male in no acute respiratory distress who is nontoxic appearing, sitting on side of bed HEENT: Normocephalic. Atraumatic.Extraocular movement intact. Sclera clear and anicteric. No facial asymmetry. Chest: Lungs are clear to auscultation bilaterally. No wheezes or crackles. CV: Heart was regular rate and rhythm. S1/S2. No murmurs, gallops, or rubs. Abd: Abdomen was soft. Mild tenderness to LLQ. Nondistended. Positive bowel sounds. No organomegaly or masses. Ext: No clubbing, cyanosis, or edema. 2+ DP pulses bilaterally. Neuro: Patient is alert and oriented x4. Cranial nerves 2-12 are intact. Speech is clear. Objective Data Vital Signs Vital Signs: Vital Signs - 24 hr 01/27/24 13:44 01/27/24 14:30 01/27/24 16:10 Temperature 97.4 F L Pulse Rate 103 H 100 100 Respiratory Rate 22 H 18 17 Blood Pressure 115/71 108/56 L 117/72 Pulse Oximetry 100 99 99 Oxygen Delivery Room Air 01/27/24 16:07 01/27/24 16:15 01/27/24 16:30 Temperature Pulse Rate 103 H 101 H 100 Respiratory Rate 26 H 23 H 30 H Blood Pressure 117/77 121/73 112/75 Pulse Oximetry 100 99 99 Oxygen Delivery 01/27/24 16:45 01/27/24 17:24 01/27/24 18:00 Temperature 98.2 F Pulse Rate 98 103 H 106 H Respiratory Rate 32 H 28 H 28 H Blood Pressure 128/68 135/64 Pulse Oximetry 99 100 100 Oxygen Delivery 01/27/24 19:52 01/27/24 20:15 01/27/24 20:00 Temperature 98.2 F Pulse Rate 107 H 107 H Respiratory Rate 16 16 Blood Pressure 108/59 L 123/71 Pulse Oximetry 97 97 Oxygen Delivery Room Air 01/27/24 20:00 01/27/24 20:00 01/27/24 20:00 Temperature Pulse Rate 111 H Respiratory Rate Blood Pressure 99/60 L 77/52 L Pulse Oximetry Oxygen Delivery 01/27/24 22:00 01/27/24 23:47 01/28/24 00:16 Temperature 98.2 F Pulse Rate 98 93 93 Respiratory Rate 16 16 Blood Pressure 111/61 Pulse Oximetry 97 97 Oxygen Delivery Room Air 01/28/24 00:00 01/28/24 02:00 01/28/24 04:00 Temperature 98.2 F Pulse Rate 92 82 85 Respiratory Rate 98 H Blood Pressure 114/56 L Pulse Oximetry 98 Oxygen Delivery 01/28/24 04:45 01/28/24 04:00 01/28/24 06:00 Temperature Pulse Rate 85 81 84 Respiratory Rate 98 H Blood Pressure Pulse Oximetry 98 Oxygen Delivery Room Air 01/28/24 07:30 01/28/24 07:30 01/28/24 07:34 Temperature 97.9 F 97.9 F Pulse Rate 85 85 99 Respiratory Rate 20 20 Blood Pressure 123/56 L 123/56 L 121/66 Pulse Oximetry 97 97 Oxygen Delivery 01/28/24 07:35 Temperature Pulse Rate 95 Respiratory Rate Blood Pressure 123/56 L Pulse Oximetry Oxygen Delivery Intake/Output Intake/Output: Intake & Output 01/25/24 01/26/24 01/27/24 01/28/24 23:59 23:59 23:59 23:59 Intake Total 1000 2140 Balance 1000 2140 Meds/Results Medications: Active Medications Generic Name Dose Route Start Last Admin Trade Name Freq PRN Reason Stop Dose Admin Acetaminophen 650 mg 01/27/24 16:56 Acetaminophen 325 Mg Tablet PO Q4H PRN Mild Pain (1-3) or Fever Aspirin 81 mg 01/28/24 09:00 Aspirin 81 Mg Enteric Tablet PO DAILY [facility] Atenolol 25 mg 01/28/24 09:00 Atenolol 25 Mg Tablet PO DAILY [facility] Atorvastatin Calcium 40 mg 01/28/24 09:00 Atorvastatin 40 Mg Tablet PO DAILY [facility] Fenofibrate 160 mg 01/28/24 09:00 Fenofibrate 160 Mg Tablet PO DAILY [facility] Sodium Chloride 1,000 mls @ 125 mls/hr 01/27/24 17:00 01/28/24 04:52 Normal Saline Iv IV CONT 125 mls/hr .Q8H SUNI Administration Loratadine 10 mg 01/28/24 09:00 Loratadine 10 Mg Tablet PO DAILY [facility] Morphine Sulfate 2 mg 01/27/24 16:56 Morphine Sulfate (*Crx) 2 Mg/Ml Inj IV PUSH Q2H PRN Pain Rated 7-10 Ondansetron HCl 4 mg 01/27/24 16:56 01/27/24 20:20 Ondansetron Inj 4 Mg/2 Ml Vial IV PUSH 4 mg Q4H PRN Administration Nausea Pantoprazole Sodium 40 mg 01/28/24 09:00 Pantoprazole 40 Mg Tablet PO DAILY [facility] Zolpidem Tartrate 10 mg 01/27/24 21:00 01/27/24 20:18 Zolpidem Tartrate (*Crx) 5 Mg Tablet PO 10 mg HS SUNI Administration Radiology Results: ITS Impressions Chest/Abdomen/Pelvis CT 01/27/24 14:51 IMPRESSION: 1. No specific etiology for the patient's symptoms. Labs Labs: Laboratory Results - last 24 hr 01/27/24 01/27/24 01/27/24 14:40 14:40 16:38 WBC 6.2 RBC 3.85 L Hgb 11.6 L Hct 32.1 L MCV 83.4 MCH 30.1 MCHC 36.1 H RDW 14.1 Plt Count 257 D MPV 10.7 H Immature Gran % (Auto) 0.3 Neut % (Auto) 66.7 Lymph % (Auto) 20.4 [place] % (Auto) 10.7 H Eos % (Auto) 1.6 Baso % (Auto) 0.3 Lymph # (Auto) 1.27 [place] # (Auto) 0.7 H Eos # (Auto) 0.1 Baso # (Auto) 0.0 Abs Immat Gran (auto) 0.02 Absolute Neuts (auto) 4.2 Absolute Nucleated RBC 0.000 Nucleated RBC % 0.0 Atypical Lymphocytes Present Platelet Estimate Adequate Ovalocytes 1+ Schistocytes None seen PT 16.1 H INR 1.3 APTT 29.3 D-Dimer 0.73 H Cancelled Sodium 130 L Potassium 3.0 L Chloride 96 L Carbon Dioxide 16 L Anion Gap 18 H BUN 37 H D Creatinine 1.20 Estim Creat Clear Calc 67 Estimated GFR 60 Glucose 114 H Lactic Acid 1.7 Calcium 8.6 Magnesium Total Bilirubin 1.3 AST 32 ALT 38 Alkaline Phosphatase 67 Troponin I 0.078 H* Total Protein 8.0 Albumin 4.2 Lipase 83 Urine Color Dark yellow Urine Appearance Cloudy H Urine pH 5.5 Ur Specific [place] 1.028 Urine Protein 1+ H Urine Glucose (UA) Negative Urine Ketones 1+ H Ur Blood (Man) Negative Urine Nitrate Negative Urine Bilirubin 2+ H Urine Urobilinogen 1.0 Add Ur Microanalysis Reviewed Leukocyte Esterase Rfl Trace H Urine RBC 0-2 Urine WBC 0-5 Ur Squamous Epith Cells Few Urine Bacteria None seen Urine Casts 3-5 C. difficile (PCR) 01/27/24 01/27/24 01/28/24 20:14 23:29 02:24 WBC RBC Hgb Hct MCV MCH MCHC RDW Plt Count MPV Immature Gran % (Auto) Neut % (Auto) Lymph % (Auto) [place] % (Auto) Eos % (Auto) Baso % (Auto) Lymph # (Auto) [place] # (Auto) Eos # (Auto) Baso # (Auto) Abs Immat Gran (auto) Absolute Neuts (auto) Absolute Nucleated RBC Nucleated RBC % Atypical Lymphocytes Platelet Estimate Ovalocytes Schistocytes PT INR APTT D-Dimer Sodium 132 L Potassium 2.8 L* Chloride 95 L Carbon Dioxide 22 Anion Gap 15 H BUN 38 H Creatinine 1.20 Estim Creat Clear Calc 65 Estimated GFR 60 Glucose 91 Lactic Acid Calcium 8.3 L Magnesium 1.2 L 1.9 Total Bilirubin AST ALT Alkaline Phosphatase Troponin I 0.059 H* D 0.047 H* D Total Protein Albumin Lipase Urine Color Urine Appearance Urine pH Ur Specific [place] Urine Protein Urine Glucose (UA) Urine Ketones Ur Blood (Man) Urine Nitrate Urine Bilirubin Urine Urobilinogen Add Ur Microanalysis Leukocyte Esterase Rfl Urine RBC Urine WBC Ur Squamous Epith Cells Urine Bacteria Urine Casts C. difficile (PCR) 01/28/24 01/28/24 02:25 02:29 WBC 6.3 RBC 3.36 L Hgb 10.1 L Hct 28.6 L MCV 85.1 MCH 30.1 MCHC 35.3 RDW 14.2 Plt Count 215 MPV 10.2 Immature Gran % (Auto) 0.3 Neut % (Auto) 58.5 Lymph % (Auto) 23.5 [place] % (Auto) 12.6 H Eos % (Auto) 4.6 H Baso % (Auto) 0.5 Lymph # (Auto) 1.47 [place] # (Auto) 0.8 H Eos # (Auto) 0.3 Baso # (Auto) 0.0 Abs Immat Gran (auto) 0.02 Absolute Neuts (auto) 3.7 Absolute Nucleated RBC 0.000 Nucleated RBC % 0.0 Atypical Lymphocytes Platelet Estimate Adequate Ovalocytes 1+ Schistocytes None seen PT INR APTT D-Dimer Sodium 132 L Potassium 3.6 Chloride 99 Carbon Dioxide 20 L Anion Gap 13 H BUN 32 H Creatinine 1.00 Estim Creat Clear Calc 78 Estimated GFR > 60 Glucose 90 Lactic Acid Calcium 8.1 L Magnesium Total Bilirubin AST ALT Alkaline Phosphatase Troponin I 0.053 H* Total Protein Albumin Lipase Urine Color Urine Appearance Urine pH Ur Specific [place] Urine Protein Urine Glucose (UA) Urine Ketones Ur Blood (Man) Urine Nitrate Urine Bilirubin Urine Urobilinogen Add Ur Microanalysis Leukocyte Esterase Rfl Urine RBC Urine WBC Ur Squamous Epith Cells Urine Bacteria Urine Casts C. difficile (PCR) Negative Quality VTE Prophylaxis VTE prophylaxis: pharmacologic ordered
[2024-01-28] MEDS: PANTOPRAZOLE 40 MG TABLET PO (09:33)
--- NOTE | 2024-01-28 10:51 | P.CONCA_ITS ---
Assessment and Plan Assessment and plan (1) Elevated troponin I level: Code(s): R79.89 - Other specified abnormal findings of blood chemistry Status: Acute Plan 73-year-old man with abdominal discomfort and diarrhea, no cardiovascular symptoms no clinical evidence of an acute coronary event. He describes being followed by Cardiology at [place] even though he does not have heart disease and has had a couple of recent stress tests that are normal and noninvasive coronary imaging showing no significant disease. The patient has troponin levels are barely out of normal range in are flat. There is no explainable reason why these were sampled from what I can see in the chart. This does not indicate any evidence of an acute coronary syndrome and does merit any further cardiac investigation while he is in the hospital. We will sign off at this time. Call if you have any other cardiovascular question Benjy Garcia MD [facility] History of Present Illness History of Present Illness Consult date/time: 01/28/24 10:51 Reason For Visit: Abdominal Pain/Elevated Troponin Narrative: This is a 73-year-old man that seeing today at the request of the hospitalist because of troponin levels that are elevated out of normal range. The patient is not known to me prior to today but he is an excellent historian and his chart has been reviewed as well. The patient came to the hospital yesterday because of abdominal cramping pain and watery diarrhea that is been going on for at least a week or 2. He states that when he was in the hospital recently and had upper and lower endoscopy done since the procedure he has been having diarrhea and he came back to the hospital to have this evaluated he is not having any symptoms of chest pain pressure heaviness shortness of breath orthopnea PND edema palpitations or syncope. He is not known to have any cardiovascular prob lems. Despite this he actively follows with a vector control assistant at [place] because he is worried about his heart because he knows heart disease is common and he is in his 70s. He has been seeing the vector control assistant over there since he was about 69 years old he says that he sees him every 6 months or so he has had 2 stress tests done since he was being followed by that department both of which have been normal. He also had what sounds like a coronary CTA done that showed some minimal plaquing by his understanding. He is normally active when he is feeling well and does not have any exertional symptoms of any kind. For reasons that are not clear after looking at his chart troponins were sampled in a serial fashion after admission there are just barely out of normal range at 0.05 and are flat with no rising and falling pattern. His electrocardiogram does not show any evidence of ischemia or injury. Review of Systems Constitutional: Constitutional: Reports no additional constitutional comp laints Eyes: Eyes: Reports no additional eye complaints ENT: Reports system reviewed and no additional complaints, except as documented Cardiovascular: Cardiovascular: Reports no additional cardiovascular complaints Respiratory: Respiratory: Reports no additional respiratory complaints Gastrointestinal: Gastrointestinal: Reports as per HPI, Reports abdominal pain and Reports diarrhea Musculoskeletal: Musculoskeletal: Reports no additional musculoskeletal complaints Integumentary/Breasts: Skin/Breast: Reports system reviewed and no additional complaints, except as docu Neurologic: Reports system reviewed and no additional complaints, except as documented Endocrine: Endocrine: Reports no additional endocrine complaints Hematologic/Lymphatic: Hematologic/Lymphatic: Reports no additional hematologic/lymphatic complaints Allergic/Immunologic: Allergic/Immunologic: Reports no additional allergic/immunologic complaints [facility] Past Medical History Medical History (Updated 01/27/24 @ 23:44 by Madina Townsend PA-C) Chronic insomnia Chronic right-sided low back pain with right-sided sciatica Essential (primary) hypertension History of rectal polyps Hypertension Impaired fasting glucose Ischemic colitis Metabolic syndrome Mixed hyperlipidemia Obesity Obstructive sleep apnea on CPAP Osteoarthritis of left knee Surgical History Surgical History (Updated 01/27/24 @ 23:40 by Madina Townsend PA-C) History of arthroscopy of right knee History of cataract extraction with lens replacement History of hand surgery History of retinal tear Family History Family History Father Hypertension Family history of malignant neoplasm Mother Hypertension Family history of malignant neoplasm Social History Social History (Updated 01/27/24 @ 23:41 by Madina Townsend PA-C) Social History: Surrogate medical decision maker: Yaritza Joshi, spouse. Code status: Full code. Smoking status: Never smoker Second hand tobacco smoke exposure: No Alcohol intake: former Alcohol use details: Occasionally Substance use: never Substance use type: does not use Do You Feel Safe in your Home?: Yes Lack of Transportation: YES Lack of Food: Never True Current Housing: I Have Housing Concerned About Future Housing: No Difficulty Paying Gas/Electric Bills: No Difficulty Paying for Meds: No Currently Unemployed: No Education: Bachelor's Degree Difficulty w/ Childcare or Family Care: No Living arrangements: with family Additional living arrangements comments: . [place]. 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: No Meds Home Medications and Allergies Home Medications Medication Instructions Recorded Confirmed Type aspirin 81 mg tablet,delayed 81 mg PO DAILY 02/24/19 01/27/24 History release hydrochlorothiazide 25 mg tablet 25 mg PO DAILY 07/18/21 01/27/24 History lisinopril 30 mg tablet 30 mg PO DAILY #90 tabs 02/13/23 01/27/24 Rx zolpidem 12.5 mg tablet,extended 12.5 mg PO QHS #30 tabs 12/26/23 01/27/24 Rx release,multiphase docusate sodium 100 mg capsule 100 mg PO Q12HR #30 caps 12/31/23 01/27/24 Rx tirzepatide (weight loss) 2.5 2.5 mg (0.5 mL) subcut WEEKLY #2 mL 01/05/24 01/27/24 Rx mg/0.5 mL subcutaneous pen injector (Zepbound) atenolol 25 mg tablet 25 mg PO DAILY 01/27/24 01/27/24 History atorvastatin 40 mg tablet 40 mg PO DAILY 01/27/24 01/27/24 History fenofibrate 160 mg tablet 160 mg PO DAILY 01/27/24 01/27/24 History loratadine 10 mg tablet 10 mg PO DAILY 01/27/24 01/27/24 History pantoprazole 40 mg tablet,delayed 40 mg PO DAILY 01/27/24 01/27/24 History release Allergies Allergy/AdvReac Type Severity Reaction Status Date / Time No Known Allergies Allergy Verified 01/27/24 13:48 Vital Signs Vital Signs - 24 hr 01/27/24 13:44 01/27/24 14:30 01/27/24 16:10 Temperature 36.3 C L Pulse Rate 103 H 100 100 Respiratory Rate 22 H 18 17 Blood Pressure 115/71 108/56 L 117/72 Pulse Oximetry 100 99 99 Oxygen Delivery Room Air 01/27/24 16:07 01/27/24 16:15 01/27/24 16:30 Temperature Pulse Rate 103 H 101 H 100 Respiratory Rate 26 H 23 H 30 H Blood Pressure 117/77 121/73 112/75 Pulse Oximetry 100 99 99 Oxygen Delivery 01/27/24 16:45 01/27/24 17:24 01/27/24 18:00 Temperature 36.8 C Pulse Rate 98 103 H 106 H Respiratory Rate 32 H 28 H 28 H Blood Pressure 128/68 135/64 Pulse Oximetry 99 100 100 Oxygen Delivery 01/27/24 19:52 01/27/24 20:15 01/27/24 20:00 Temperature 36.8 C Pulse Rate 107 H 107 H Respiratory Rate 16 16 Blood Pressure 108/59 L 123/71 Pulse Oximetry 97 97 Oxygen Delivery Room Air 01/27/24 20:00 01/27/24 20:00 01/27/24 20:00 Temperature Pulse Rate 111 H Respiratory Rate Blood Pressure 99/60 L 77/52 L Pulse Oximetry Oxygen Delivery 01/27/24 22:00 01/27/24 23:47 01/28/24 00:16 Temperature 36.8 C Pulse Rate 98 93 93 Respiratory Rate 16 16 Blood Pressure 111/61 Pulse Oximetry 97 97 Oxygen Delivery Room Air 01/28/24 00:00 01/28/24 02:00 01/28/24 04:00 Temperature 36.8 C Pulse Rate 92 82 85 Respiratory Rate 98 H Blood Pressure 114/56 L Pulse Oximetry 98 Oxygen Delivery 01/28/24 04:45 01/28/24 04:00 01/28/24 06:00 Temperature Pulse Rate 85 81 84 Respiratory Rate 98 H Blood Pressure Pulse Oximetry 98 Oxygen Delivery Room Air 01/28/24 07:30 01/28/24 07:30 01/28/24 07:34 Temperature 36.6 C 36.6 C Pulse Rate 85 85 99 Respiratory Rate 20 20 Blood Pressure 123/56 L 123/56 L 121/66 Pulse Oximetry 97 97 Oxygen Delivery 01/28/24 07:35 01/28/24 09:30 01/28/24 08:00 Temperature Pulse Rate 95 90 Respiratory Rate Blood Pressure 123/56 L Pulse Oximetry 97 Oxygen Delivery Room Air 01/28/24 08:00 01/28/24 10:00 Temperature Pulse Rate 108 H 83 Respiratory Rate Blood Pressure Pulse Oximetry Oxygen Delivery Exam Const: General: comfortable and no acute distress Other: Pleasant overweight white male comfortable cooperative no distress at this time supine in bed HENMT: Mouth: Yes moist mucous membranes Eyes: Sclera: sclerae normal Neck: Neck: supple and no JVD Resp: Effort & Inspection: normal respiratory effort Auscultation: clear to auscultation bilaterally Cardio: Rate: regular rate Rhythm: regular rhythm Other: normal first and second heart sounds no audible gallop murmur or rub GI: GI Palp: Yes Soft to palpation Skin: General skin exam: normal color Neuro: Other: alert and oriented x3 Extrem: Other: good perfusion, no edema Results Labs and Meds 01/28/24 02:29 01/28/24 02:29 Lab results: Cardiac Enzymes 01/27/24 01/27/24 01/27/24 Range/Units 14:40 20:14 23:29 AST 32 (17-59) U/L Troponin I 0.078 H* 0.059 H* D 0.047 H* D (0.000-0.034) ng/mL 01/28/24 Range/Units 02:29 AST (17-59) U/L Troponin I 0.053 H* (0.000-0.034) ng/mL Coagulation 01/27/24 Range/Units 14:40 PT 16.1 H (11.1-14.7) Seconds APTT 29.3 (22.3-36.8) Seconds CBC 01/27/24 01/28/24 Range/Units 14:40 02:29 WBC 6.2 6.3 (4.5-10.0) K/mm3 RBC 3.85 L 3.36 L (4.6-6.20) M/mm3 Hgb 11.6 L 10.1 L (14.0-18.0) g/dL Hct 32.1 L 28.6 L (42.0-52.0) % Plt Count 257 D 215 (150-375) k/mm3 Lymph # (Auto) 1.27 1.47 (0.9-3.2) K/mm3 [place] # (Auto) 0.7 H 0.8 H (0.1-0.6) K/mm3 Eos # (Auto) 0.1 0.3 (0-0.3) K/mm3 Baso # (Auto) 0.0 0.0 (0.0-0.1) K/mm3 Comprehensive Metabolic Panel 01/27/24 01/27/24 01/28/24 Range/Units 14:40 20:14 02:29 Sodium 130 L 132 L 132 L (137-145) mmol/L Potassium 3.0 L 2.8 L* 3.6 (3.4-5.0) mmol/L Chloride 96 L 95 L 99 (98-107) mmol/L Carbon Dioxide 16 L 22 20 L (22-30) mmol/L BUN 37 H D 38 H 32 H (9-20) mg/dL Creatinine 1.20 1.20 1.00 (0.7-1.3) mg/dL Glucose 114 H 91 90 (65-110) mg/dL Calcium 8.6 8.3 L 8.1 L (8.4-10.2) mg/dL AST 32 (17-59) U/L ALT 38 (6-50) U/L Alkaline Phosphatase 67 (38-126) U/L Total Protein 8.0 (6.3-8.2) g/dL Albumin 4.2 (3.5-5.1) g/dL Intake and Output 01/27/24 01/28/24 01/28/24 23:59 07:59 15:59 Intake Total 1000 2020 849.2 Balance 1000 2020 849.2 Intake: IV 1000 1620 729.2 Sodium Chloride 0.9% IV 1,000 1000 1000 729.2 ml @ 125 mls/hr IV CONT .Q8H [facility] Rx#:[id number] Magnesium Sulfate [id number] 100 3 gm In 100 ml @ 33.333 mls/hr IVPB ONCE ONE Rx#:[id number] Potassium Chloride Inj 40 meq 520 In Sodium Chloride 0.9% IV 500 ml @ 130 mls/hr IVPB ONCE ONE Rx#:[id number] Oral 400 120 Other: # Unmeasured Voids 2 1 Number of Bowel Movements Today 2 Patient Weight 01/28/24 23:59 Weight 118 kg
--- NOTE | 2024-01-28 17:28 | WPDGICN ---
Assessment and Plan Assessment and plan (1) Ischemic colitis: Code(s): K55.9 - Vascular disorder of intestine, unspecified Status: Acute Assessment and Plan: The patient has a very severe endoscopic picture of ischemic colitis. I explained to him that diarrhea is a consequence of severe mucosal ulceration, and will take several weeks to fully heal and recover clinically. In the meantime, it is okay to cautiously use antidiarrheals, such as loperamide 2 mg 2-3 times per day. He should have a diet according to his symptoms, initially avoiding dairy products, raw vegetables or any other food that he considers triggers for diarrhea. There is no specific medication for this condition, and the usual natural history is benign and recovery is a rule once perfusion is restablished. In addition, anemia can also be a consequence of severe colonic ulceration. We can follow him up as an outpatient in about 4-6 weeks, and he can safely be discharged on antidiarrheals as stated above. (2) Anemia: Qualifiers: Anemia type: unspecified type Qualified Code(s): D64.9 - Anemia, unspecified Code(s): D64.9 - Anemia, unspecified Status: Acute (3) Pre-syncope: Code(s): R55 - Syncope and collapse Status: Acute (4) Diarrhea: Qualifiers: Diarrhea type: unspecified type Qualified Code(s): R19.7 - Diarrhea, unspecified Code(s): R19.7 - Diarrhea, unspecified Status: Acute GI Consult Note Consult date/time: 01/28/24 17:28 HPI: Rickey Joshi is a 73 year old male Who was diagnosed with a severe ischemic colitis 1 month ago. At that time, the patient had what seemed to be a post defecatory syncope, having an episode of hypotension and being brought to the emergency room. Shortly after, he developed severe diarrhea which led to the diagnosis of ischemic colitis. After that, he has never recovered he has normal bowel movements, having always liquid diarrhea, an average of 3 to 4 times a day, nonbloody, not associated with abdominal pain, fever or systemic symptoms. Of note, the patient does not have a history of coronary artery disease, but he does have hypertension, dyslipidemia, obstructive sleep apnea and obesity. He has taken antidiarrheals once with significant reduction in his stool frequency. However, he was not taking more [id number] antidiarrheals to avoid constipation. Review of Systems Review of Systems: All systems reviewed & are unremarkable except as noted in HPI and below PMFSH Past Medical History Medical History (Updated 01/27/24 @ 23:44 by Madina Townsend PA-C) Chronic insomnia Chronic right-sided low back pain with right-sided sciatica Essential (primary) hypertension History of rectal polyps Hypertension Impaired fasting glucose Ischemic colitis Metabolic syndrome Mixed hyperlipidemia Obesity Obstructive sleep apnea on CPAP Osteoarthritis of left knee Surgical History Surgical History (Updated 01/27/24 @ 23:40 by Madina Townsend PA-C) History of arthroscopy of right knee History of cataract extraction with lens replacement History of hand surgery History of retinal tear Family History Family History Father Hypertension Family history of malignant neoplasm Mother Hypertension Family history of malignant neoplasm Social History Social History (Updated 01/27/24 @ 23:41 by Madina Townsend PA-C) Social History: Surrogate medical decision maker: Yaritza Madelyn, spouse. Code status: Full code. Smoking status: Never smoker Second hand tobacco smoke exposure: No Alcohol intake: former Alcohol use details: Occasionally Substance use: never Substance use type: does not use Do You Feel Safe in your Home?: Yes Lack of Transportation: YES Lack of Food: Never True Current Housing: I Have Housing Concerned About Future Housing: No Difficulty Paying Gas/Electric Bills: No Difficulty Paying for Meds: No Currently Unemployed: No Education: Bachelor's Degree Difficulty w/ Childcare or Family Care: No Living arrangements: with family Additional living arrangements comments: . Lives with spouse in [place]. 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: No Meds Home Medications and Allergies Home Medications Medication Instructions Recorded Confirmed Type aspirin 81 mg tablet,delayed 81 mg PO DAILY 02/24/19 01/27/24 History release hydrochlorothiazide 25 mg tablet 25 mg PO DAILY 07/18/21 01/27/24 History lisinopril 30 mg tablet 30 mg PO DAILY #90 tabs 02/13/23 01/27/24 Rx zolpidem 12.5 mg tablet,extended 12.5 mg PO QHS #30 tabs 12/26/23 01/27/24 Rx release,multiphase docusate sodium 100 mg capsule 100 mg PO Q12HR #30 caps 12/31/23 01/27/24 Rx tirzepatide (weight loss) 2.5 2.5 mg (0.5 mL) subcut WEEKLY #2 mL 01/05/24 01/27/24 Rx mg/0.5 mL subcutaneous pen injector (Zepbound) atenolol 25 mg tablet 25 mg PO DAILY 01/27/24 01/27/24 History atorvastatin 40 mg tablet 40 mg PO DAILY 01/27/24 01/27/24 History fenofibrate 160 mg tablet 160 mg PO DAILY 01/27/24 01/27/24 History loratadine 10 mg tablet 10 mg PO DAILY 01/27/24 01/27/24 History pantoprazole 40 mg tablet,delayed 40 mg PO DAILY 01/27/24 01/27/24 History release Allergies Allergy/AdvReac Type Severity Reaction Status Date / Time No Known Allergies Allergy Verified 01/27/24 13:48 Vital Signs Vital Signs - 24 hr 01/27/24 18:00 01/27/24 19:52 01/27/24 20:15 Temperature 98.2 F 98.2 F Pulse Rate 106 H 107 H 107 H Respiratory Rate 28 H 16 16 Blood Pressure 135/64 108/59 L Pulse Oximetry 100 97 97 Oxygen Delivery Room Air 01/27/24 20:00 01/27/24 20:00 01/27/24 20:00 Temperature Pulse Rate Respiratory Rate Blood Pressure 123/71 99/60 L 77/52 L Pulse Oximetry Oxygen Delivery 01/27/24 20:00 01/27/24 22:00 01/27/24 23:47 Temperature 98.2 F Pulse Rate 111 H 98 93 Respiratory Rate 16 Blood Pressure 111/61 Pulse Oximetry 97 Oxygen Delivery 01/28/24 00:16 01/28/24 00:00 01/28/24 02:00 Temperature Pulse Rate 93 92 82 Respiratory Rate 16 Blood Pressure Pulse Oximetry 97 Oxygen Delivery Room Air 01/28/24 04:00 01/28/24 04:45 01/28/24 04:00 Temperature 98.2 F Pulse Rate 85 85 81 Respiratory Rate 98 H 98 H Blood Pressure 114/56 L Pulse Oximetry 98 98 Oxygen Delivery Room Air 01/28/24 06:00 01/28/24 07:30 01/28/24 07:30 Temperature 97.9 F 97.9 F Pulse Rate 84 85 85 Respiratory Rate 20 20 Blood Pressure 123/56 L 123/56 L Pulse Oximetry 97 97 Oxygen Delivery 01/28/24 07:34 01/28/24 07:35 01/28/24 09:30 Temperature Pulse Rate 99 95 90 Respiratory Rate Blood Pressure 121/66 123/56 L Pulse Oximetry Oxygen Delivery 01/28/24 08:00 01/28/24 08:00 01/28/24 10:00 Temperature Pulse Rate 108 H 83 Respiratory Rate Blood Pressure Pulse Oximetry 97 Oxygen Delivery Room Air 01/28/24 11:31 01/28/24 15:16 Temperature 98.0 F 98.0 F Pulse Rate 79 76 Respiratory Rate 20 18 Blood Pressure 122/61 121/58 L Pulse Oximetry 97 100 Oxygen Delivery Exam Const: General: cooperative and healthy appearing Resp: Effort & Inspection: normal respiratory effort and able to speak in complete sentences Auscultation: clear to auscultation bilaterally Cardio: Rate: regular rate Rhythm: regular rhythm GI: Inspection: normal to inspection GI Palp: No No hepatosplenomegaly present Auscultation: normal bowel sounds Rectal Exam: deferred Skin: General skin exam: normal color Psych: Appearance: grossly normal Mental Status: mental status grossly normal Results Labs 01/28/24 02:29 01/28/24 02:29 Labs: Short CBC 01/28/24 Range/Units 02:29 WBC 6.3 (4.5-10.0) K/mm3 Hgb 10.1 L (14.0-18.0) g/dL Hct 28.6 L (42.0-52.0) % Plt Count 215 (150-375) k/mm3 [facility] 01/27/24 01/28/24 20:14 02:29 Sodium 132 L 132 L Potassium 2.8 L* 3.6 Chloride 95 L 99 Carbon Dioxide 22 20 L BUN 38 H 32 H Creatinine 1.20 1.00 Glucose 91 90 Calcium 8.3 L 8.1 L Cardiac Enzymes 01/27/24 01/27/24 01/28/24 Range/Units 20:14 23:29 02:29 Troponin I 0.059 H* D 0.047 H* D 0.053 H* (0.000-0.034) ng/mL
[2024-01-28] MEDS: LOPERAMIDE HCL 2 MG CAPSULE PO (20:11)
[2024-01-28] MEDS: ZOLPIDEM TARTRATE (*CRX) 5 MG TABLET 10 MG PO (20:12)
[2024-01-29] VITALS (14 sets, daily range): BP systolic 100–128; BP diastolic 39–63; PULSE 70–83; RESP 14–165; TEMP 36.7–37; O2SAT 97–99
[2024-01-29] MEDS: SODIUM CHLORIDE 0.9% IV 1,000 ML 125 ML IV CONT (04:25)
[2024-01-29 04:49] LABS: Basophils Percent Auto 0.4 % (0.2-1.2); Eosinophils Absolute Auto 0.2 K/mm3 (0-0.3); Eosinophils Percent Auto 4.5 % (0-4.4); Hematocrit 25.8 % (42.0-52.0); Hemoglobin 9.1 g/dL (14.0-18.0); Immature Granulocyte Absolute 0.02 K/mm3 (0.00-0.031); Immature Granulocyte Percent A 0.4 % (0-0.5); Lymphocytes Absolute Auto 1.51 K/mm3 (0.9-3.2); Lymphocytes Percent Auto 29.5 % (18.3-44.2); Mean Corpuscular HGB Conc 35.3 g/dl (32-36); Mean Corpuscular Hemoglobin 30.7 pg (26-34); Mean Corpuscular Volume 87.2 fl (80-100); Mean Platelet Volume 9.6 fl (7.4-10.4); Monocytes Absolute Auto 0.5 K/mm3 (0.1-0.6); Monocytes Percent Auto 10.5 % (2.6-8.5); Neutrophils Absolute Auto 2.8 K/mm3 (1.3-6.7); Neutrophils Percent Auto 54.7 % (45.5-73.1); Platelet Count Result 160 k/mm3 (150-375); Red Blood Count 2.96 M/mm3 (4.6-6.20); Red Cell Distribution Width 14.4 % (11.5-14.5); White Blood Count 5.1 K/mm3 (4.5-10.0)
[2024-01-29 05:01] LABS: Alanine Aminotransferase 44 U/L (6-50); Albumin Level 3.1 g/dL (3.5-5.1); Alkaline Phosphatase 59 U/L (38-126); Anion Gap 8 mmol/L (4-12); Aspartate Amino Transferase 43 U/L (17-59); Bilirubin,Total 0.9 mg/dL (0.2-1.3); Blood Urea Nitrogen 15 mg/dL (9-20); Calcium 7.9 mg/dL (8.4-10.2); Carbon Dioxide 23 mmol/L (22-30); Chloride 101 mmol/L (98-107); Estimated CRCL calculation 96 ml/min; Estimated Glomerular Filt Rate > 60; Glucose 81 mg/dL (65-110); Potassium 3.4 mmol/L (3.4-5.0); Sodium 132 mmol/L (137-145)
[2024-01-29 05:14] LABS: Platelet Estimate Adequate (Adequate)
[2024-01-29 05:15] LABS: Atypical Lymphocytes Present; Schistocytes None Seen
[2024-01-29] MEDS: FENOFIBRATE 160 MG TABLET PO (09:55)
[2024-01-29] MEDS: LORATADINE 10 MG TABLET PO (09:55)
[2024-01-29] MEDS: ATORVASTATIN 40 MG TABLET PO (09:55)
[2024-01-29] MEDS: atenoloL 25 MG TABLET PO (09:55)
[2024-01-29] MEDS: ENOXAPARIN 40 MG/0.4 ML SYRINGE SUB-Q (09:55)
[2024-01-29] MEDS: ASPIRIN 81 MG ENTERIC TABLET PO (09:55)
[2024-01-29] MEDS: PANTOPRAZOLE 40 MG TABLET PO (09:57)
[2024-01-29 11:28] LABS: Iron 45 ug/dL (49-181)
[2024-01-29 11:37] LABS: Percent Iron Saturation 20 % (20-50)
[2024-01-29 12:36] LABS: Folic Acid 4.8 ng/mL (2.76->20)
--- NOTE | 2024-01-29 12:58 | P.DS_ITS ---
DS: Admitting Diagnosis Discharge Date 01/29/2024 Admitting Diagnosis Diarrhea electrolyte abnormality elevated troponin hypertension BRITTANI DS: Discharge Diagnosis Discharge Diagnosis (1) Diarrhea: Qualifiers: Diarrhea type: unspecified type Qualified Code(s): R19.7 - Diarrhea, unspecified Code(s): R19.7 - Diarrhea, unspecified Status: Acute (2) Electrolyte abnormality: Code(s): E87.8 - Other disorders of electrolyte and fluid balance, not elsewhere classified Status: Acute (3) Elevated troponin I level: Code(s): R79.89 - Other specified abnormal findings of blood chemistry Status: Acute (4) Hypertension: Code(s): I10 - Essential (primary) hypertension Status: Acute (5) Obstructive sleep apnea on CPAP: Code(s): G47.33 - Obstructive sleep apnea (adult) (pediatric) Status: Acute DS: Summary Hospital Course Reason for hospitalization: Diarrhea electrolyte abnormality elevated troponin hypertension BRITTANI Hospital Course: 73-year-old male with history of hypertension, hyperlipidemia, chronic kidney disease, gastroesophageal reflux disease, obstructive sleep apnea, and colitis who presented to the emergency department for evaluation of abdominal pain and persistent diarrhea (4-20 episodes a day). The patient has a very severe ischemic colitis on colonoscopy and biopsy in November which is the likely etiology of the ongoing diarrhea. Patient c diff was negative. CT chest/abdomen/pelvis was unremarkable besides liquid stool in the colon suggesting diarrhea. There are no dilated loops of bowel. Patient had abnormal electrolytes on admission requiring supplementation. This was likely due to diarrhea and resolved at discharge. GI was consulted. Per GI it is okay to use loperamide 2 mg 2-3 times per day. He should have a diet according to his symptoms, initially avoiding dairy products, raw vegetables or any other food that he considers triggers for diarrhea. Patient received loperamide and was no longer having diarrhea at discharge. Tolerating diet well. Of note, while patient was in the ED troponins were drawn for unclear reason as patient never complained of chest pain. Due to the troponins being slightly elevated cardiology was consulted and states that this is not ACS and signed off. Patient never reported chest pain or palpitations during admission. patient discharged home with family in stable condition. He is to follow GI in 4 weeks and his primary care provider in 1 week. Status at Discharge Functional status at discharge: independent ambulation Time Spent with Patient Time attestation: Total time spent providing and/or coordinating discharge services: Time spent: Greater than 30 minutes Exam Narrative: AF HR 78 RR 16 SPO2 98 BP 113/60 General: male in no acute respiratory distress who is nontoxic appearing, sitting on side of bed HEENT: Normocephalic. Atraumatic.Extraocular movement intact. Sclera clear and anicteric. No facial asymmetry. Chest: Lungs are clear to auscultation bilaterally. No wheezes or crackles. CV: Heart was regular rate and rhythm. S1/S2. No murmurs, gallops, or rubs. Abd: Abdomen was soft. Nontender. Nondistended. Positive bowel sounds. No organomegaly or masses. DS: Data Data Completed and Pending Completed studies during hospitalization: chest abdomen pelvis CT Labs on day of discharge: Labs from last 24 hours 01/29/24 04:44 WBC 5.1 RBC 2.96 L Hgb 9.1 L Hct 25.8 L MCV 87.2 MCH 30.7 MCHC 35.3 RDW 14.4 Plt Count 160 MPV 9.6 Immature Gran % (Auto) 0.4 Neut % (Auto) 54.7 Lymph % (Auto) 29.5 [place] % (Auto) 10.5 H Eos % (Auto) 4.5 H Baso % (Auto) 0.4 Lymph # (Auto) 1.51 [place] # (Auto) 0.5 Eos # (Auto) 0.2 Baso # (Auto) 0.0 Abs Immat Gran (auto) 0.02 Absolute Neuts (auto) 2.8 Absolute Nucleated RBC 0.000 Nucleated RBC % 0.0 Atypical Lymphocytes Present Platelet Estimate Adequate Schistocytes None seen Sodium 132 L Potassium 3.4 Chloride 101 Carbon Dioxide 23 Anion Gap 8 BUN 15 D Creatinine 0.80 Estim Creat Clear Calc 96 Estimated GFR > 60 Glucose 81 Calcium 7.9 L Iron 45 L TIBC 220 L % Saturation 20 Total Bilirubin 0.9 AST 43 ALT 44 Alkaline Phosphatase 59 Total Protein 6.0 L Albumin 3.1 L Vitamin B12 317.0 Folate 4.8 Discharge Plan Discharge Attending physician on discharge: Rosario Meyer Consulting providers: Adelina Richardson Discharging Clinician: Anitra Fish Anticipated Discharge Date/Time: 01/29/24 12:54 Patient Disposition: Home, Self-Care Activity: as tolerated Diet: as tolerated and other - see discharge instructions Discharge Instructions: Discharge disposition: Patient admitted to the hospital for ongoing diarrhea symptoms with associated abdominal pain Evaluated by GI during admission It is okay to cautiously use antidiarrheals, such as loperamide 2 mg 2-3 times per day. Attached is information on this medication. You should have a diet according to your symptoms, initially avoiding dairy products, raw vegetables or any other food that you consider a trigger for diarrhea. Stay adequately hydrated Follow up with Dr. Richard DURAN in 4-6 weeks Patient has iron deficiency anemia Started on iron supplementation Attached is information on this medication Monitor blood pressures Take caution while standing, rising, or moving Change positions slowly taking a break between each position change If you standing feel dizzy sat back down and take a break Encouraged to continue with yearly vaccinations Return to the emergency department if he developed sudden shortness of breath, chest pain, nausea, vomiting, upset stomach or intractable diarrhea Return to the emergency department if you develop fever greater than 101.5 Follow-up with the primary care physician within 1 weeks Thank you for [facility] for your healthcare needs Patient Instructions: Iron Supplements (By mouth), Loperamide (By mouth), Dehydration (DC), Iron Deficiency Anemia (GEN), Ischemic Colitis (DC) Patient Language: Hebrew Stand Alone Forms: General Discharge Information Follow-up/Referrals: Huber Culp MD [Primary Care Provider] - 1 Week Austin Ramos MD [Physician] - 4 Weeks Discharge Medications: New loperamide 2 mg Capsule 2 mg PO TID PRN (Reason: Diarrhea) Qty: 30 0RF ferrous sulfate 325 mg (65 mg iron) tablet 325 mg PO BID Qty: 60 0RF Continued hydrochlorothiazide 25 mg tablet 25 mg PO DAILY Hold Instructions: .Provider Order atorvastatin 40 mg tablet 40 mg PO DAILY Rx Instructions: TAKE 1 TABLET DAILY atenolol 25 mg tablet 25 mg PO DAILY Rx Instructions: TAKE 1 TABLET DAILY pantoprazole 40 mg tablet,delayed release (DR/EC) 40 mg PO DAILY Rx Instructions: TAKE 1 TABLET EVERY MORNING loratadine 10 mg tablet 10 mg PO DAILY Rx Instructions: TAKE 1 TABLET DAILY fenofibrate 160 mg tablet 160 mg PO DAILY Rx Instructions: TAKE 1 TABLET DAILY aspirin 81 mg tablet,delayed release (DR/EC) 81 mg PO DAILY lisinopril 30 mg tablet 30 mg PO DAILY Qty: 90 2RF zolpidem 12.5 mg tablet,ext release multiphase 12.5 mg PO QHS Qty: 30 0RF Zepbound 2.5 mg/0.5 mL pen injector 2.5 mg subcut WEEKLY Qty: 2 1RF Rx Instructions: for 4 weeks Discontinued docusate sodium 100 mg Capsule 100 mg PO Q12HR Qty: 30 0RF Date of admission: 01/27/24 18:20 Primary Care Provider: Huber Culp Admitting Provider: Rosario Meyer Attending physician on admission: Anitra Fish Condition: Stable Hospitalist MIPS Heart Failure (Exclusion) Patient has history of Heart Transplant or Left Ventricular Assistive Device?: No IF YES, STOP HERE Heart Failure (Qualifier) Patient has current or prior documentation of LVEF less than or equal to 40%, or mod/servere depressed LVSF?: No IF NO, STOP HERE
== END 2024-01-29 13:43 | disposition home or self-care (01) ==
LOC: ANHED 16:52 → ANHIMU 17:51
PROVIDERS: Physician Assistant; Registered Nurse; Admitting Provider Internal Medicine; Emergency Provider Family Medicine; PCP Family Medicine; Visit Provider Student in an Organized Health Care Education/Training Program
DX: R19.7 Diarrhea, unspecified (principal); K55.9 Vascular disorder of intestine, unspecified; E86.0 Dehydration; D64.9 Anemia, unspecified; R79.89 Other specified abnormal findings of blood chemistry; R55 Syncope and collapse; E87.8 Other disorders of electrolyte and fluid balance, not elsewhere classified; I12.9 Hypertensive chronic kidney disease with stage 1 through stage 4 chronic kidney disease, or unspecified chronic kidney disease; N18.9 Chronic kidney disease, unspecified; E78.2 Mixed hyperlipidemia; G47.33 Obstructive sleep apnea (adult) (pediatric); K21.9 Gastro-esophageal reflux disease without esophagitis; E66.9 Obesity, unspecified; Z68.35 Body mass index [BMI] 35.0-35.9, adult; Z79.85 Long-term (current) use of injectable non-insulin antidiabetic drugs; Z79.82 Long term (current) use of aspirin
CPT/HCPCS: 36415; 71250; 74176; 80048; 80053; 81001; 82607; 82746; 83540; 83550; 83605; 83690; 83735; 84484; 85025; 85380; 85610; 85730; 87045; 87427; 87449; 87493; 93005; 96361; 96365; 96366; 96367; 96372; 96375; 99285; A9270; G0378; J0500; J1650; J2405; J3475; J3480; J7030; J7040

== ENCOUNTER 2024-03-10 09:10 | Outpatient (CLI) | payer MEDICARE, OTHER, SELFPAY ==
--- NOTE | ~2024-03-10 | CT_ITS ---
Procedure: CT LE RT wo con Ordering provider: Tariq Cabrera MD History: . M17.11 - Unilateral primary osteoarthritis, right knee . Comparison: None. Technique: Thin slice axial CT of the No IV contrast was given. Sagittal and coronal reformatted imag es were also obtained and reviewed. Findings: BONES: No definite fracture or dislocation. Small bony fragment seen anteriorly and posteriorly near to the lateral tibia JOINT SPACES: Marginal osteophytes are seen medially and laterally. Osteophyte is seen posteriorly an d anteriorly in the distal femur. Osteophytes seen in the patella. Pubic symphysitis. Osteoarthritic changes seen between the cuneiform bones. Mild to moderate osteoarthritic changes of the right hip is noted. No definite fractures seen in the visualized foot bones.. SOFT TISSUES: Normal. IMPRESSION: Osteoarthritic changes of the right knee of moderate to severe degree. Narrowing of the medial compar tment is noted. Mild to moderate osteoarthritic changes of the right hip. Reviewed, dictated and finalized at location A. TESTER IMPRESSION: Osteoarthritic changes of the right knee of moderate to severe degree. Narrowin g of the medial compartment is noted. Mild to moderate osteoarthritic changes of the right hip.
== END 2024-03-10 09:11 | disposition home or self-care (01) ==
PROVIDERS: PCP Family Medicine; Visit Provider Orthopaedic Surgery
DX: M17.11 Unilateral primary osteoarthritis, right knee (principal); M16.11 Unilateral primary osteoarthritis, right hip
CPT/HCPCS: 73700

== ENCOUNTER 2024-05-18 01:12 | Day surgery (SDC) | payer MEDICARE, OTHER, SELFPAY ==
[2024-04-23 14:11] VITALS: BP 116/66; PULSE 77; RESP 16; TEMP 36.7; O2SAT 98; BMI 35.6
--- NOTE | 2024-04-23 14:38 | PC.NURSE ---
Report to the Outpatient Waiting Room, entrance under the green pavilion located off [address], at time _1100am on date __05/18/24 . Planned Procedure Time: __1300pm .? Time changes happen often and if your time is changed the preop area will call you the afternoon before. - You and your visitor will be asked to self-screen and do not enter if you have any COVID symptoms. Please call surgeon if you need to reschedule. - A mask is optional within the hospital at this time. Patients may have clear liquids (water, carbonated beverages, clear teas, apple juice) until 3 hours prior to surgery with a maximum of 20 ounces. - No food from midnight until time of surgery and no smoking. This includes no chewing gum, candy or mints. (1000am) Take only the following medications with a SIP of water on the morning of surgery: ____Atenolol, Tylenol, and Gabapentin if needed DO NOT STOP ANY OF YOUR OTHER PRESCRIPTION MEDICATIONS PRIOR TO SURGERY EXCEPT THE FOLLOWING Medications to discontinue per physician _Hold Aspirin for 7 days pre op per Rick, date to take last dose is 05/10/24 Hold Zepbound for 10 days prior to surgery per Anesthesia, Date to take last dose__05/06/24 Please no make-up, nail japanese, hairspray, perfume, deodorant, or body powder the day of surgery.? No jewelry (including any body piercings) or valuables the day of surgery, leave them at home.? Please take a shower or bath the night before, or the morning of, surgery with an antibacterial soap.? Wear comfortable, loose fitting clothing.? Children are encouraged to wear pajamas. - Jewelry must be removed prior to entering the operating room.? Rings and piercings that are not removed may be cut off. - The hospital will not accept responsibility for valuables.? - Please leave all valuables, including medications, at home the day of surgery. If you are going home after surgery, a licensed lokie driver must drive you home.? - NO public transportation without another adult if you receive anesthesia. - We recommend that an adult stay with you for 24 hours following discharge. - We also recommend that you do not drive, make important decision, drink alcoholic beverages, or take any drugs that were not prescribed by your health care provider for at least 24 hours after your discharge time. Hold all vitamins and supplements for __3____ days per Anesthesia . Follow any additional instructions given to you from your surgeon. Telephone instructions given to ___patient and and asked if any additional questions and then verbalized understanding. Patient advised to call surgeon office or pre surgery nurse liaison [phone] if any additional questions.
--- NOTE | 2024-05-17 15:40 | WPDANESEPPF ---
Anes - Initial Pre Proc Eval Procedure: Operation Date: 05/18/24 07:30 Proposed Procedures p Right Custom Total Knee Arthroplasty - Tariq Cabrera MD Date/Time: 05/17/24 15:40 Surgeon: Tariq Cabrera MD Pre Op Diagnosis: primary oa right knee Patient Data Age: 73 Gender: M Height: 1.83 m Weight: 119.2 kg Last Vital Signs Temp 36.7 C 04/23/24 14:11 Pulse 77 04/23/24 14:11 Resp 16 04/23/24 14:11 BP 116/66 04/23/24 14:11 Pulse Ox 98 04/23/24 14:11 O2 Del Method Room Air 04/23/24 14:11 Allergies Allergy/AdvReac Type Severity Reaction Status Date / Time No Known Allergies Allergy Verified 04/23/24 14:05 Home Medications ?Medication ?Instructions ?Recorded ?Confirmed ?Type aspirin 81 mg tablet,delayed 81 mg PO DAILY 02/24/19 04/27/24 History release hydrochlorothiazide 25 mg tablet 25 mg PO DAILY 07/18/21 04/27/24 History atorvastatin 40 mg tablet 40 mg PO DAILY 01/27/24 04/27/24 History fenofibrate 160 mg tablet 160 mg PO DAILY 01/27/24 04/27/24 History loratadine 10 mg tablet 10 mg PO DAILY 01/27/24 04/27/24 History pantoprazole 40 mg tablet,delayed 40 mg PO DAILY 01/27/24 04/27/24 History release tirzepatide (weight loss) 2.5 2.5 mg (0.5 mL) subcut WEEKLY #2 mL 02/04/24 04/27/24 Rx mg/0.5 mL subcutaneous pen injector (Zepbound) ferrous sulfate 325 mg (65 mg 325 mg PO BID #60 tabs 02/27/24 04/27/24 Rx iron) tablet lisinopril 30 mg tablet 30 mg PO DAILY #90 tabs 03/08/24 04/27/24 Rx atenolol 25 mg tablet 25 mg PO DAILY #90 tabs 03/26/24 04/27/24 Rx gabapentin 300 mg capsule 300 mg PO Q8H PRN pain 04/23/24 04/23/24 History zolpidem 12.5 mg tablet,extended 12.5 mg PO QHS #30 tabs 04/29/24 Rx release,multiphase Patient hx anesthesia problems: none Family hx anesthesia problems: none Results Review: All pre-operative results and documents have been reviewed as part of the pre-operative evaluation. [facility] Past Medical History Medical History (Updated 05/18/24 @ 07:02 by Deng Marlow DO) CKD (chronic kidney disease) Thoracic aortic aneurysm (TAA) Hypertension Obstructive sleep apnea on CPAP Impaired fasting glucose Ischemic colitis Obesity Osteoarthritis of left knee Mixed hyperlipidemia Metabolic syndrome History of rectal polyps Essential (primary) hypertension Chronic right-sided low back pain with right-sided sciatica Chronic insomnia Surgical History Surgical History History of cataract extraction with lens replacement History of arthroscopy of right knee History of hand surgery History of retinal tear Family History Family History Father Hypertension Family history of malignant neoplasm Mother Hypertension Family history of malignant neoplasm Social History Social History Social History: Surrogate medical decision maker: Yaritza Joshi, spouse. Code status: Full code. Smoking status: Never smoker Second hand tobacco smoke exposure: No Alcohol intake: former Alcohol use details: Occasionally Substance use: never Substance use type: does not use Do You Feel Safe in your Home?: Yes Lack of Transportation: No Lack of Food: Never True Current Housing: I Have Housing Concerned About Future Housing: No Difficulty Paying Gas/Electric Bills: No Difficulty Paying for Meds: No Currently Unemployed: No Education: Bachelor's Degree Difficulty w/ Childcare or Family Care: No Living arrangements: with family Additional living arrangements comments: 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: No Anes - Eval Final PreProcedure Day of Procedure 05/17/24 15:40 Patient weight: obese Heart: regular rate and rhythm Lungs: clear to auscultation Airway: Mallampati scale class II Neurological: alert and oriented Last oral intake: >/= 8 hours ASA classification: III Emergent: no Anesthetic plan: proceed Anesthesia type and monitoring: general LMA and standard monitoring Results Review: All pre-operative results and documents have been reviewed as part of the pre-operative evaluation. Informed Consent: The patient's anesthetic plan and its attendant risks and benefits were discussed with the patient/family/POA. Questions were solicited and answers provided to the satisfaction of the patient/family/POA.
[2024-05-18] VITALS (9 sets, daily range): BP systolic 108–122; BP diastolic 53–70; PULSE 64–79; RESP 10–17; TEMP 36.1–36.9; O2SAT 93–100
--- NOTE | ~2024-05-18 | XR_ITS ---
EXAMINATION: [id number] DATE: 05/18/2024 10:05 INDICATION: Postoperative evaluation following right total knee arthroplasty. TECHNIQUE: Anteroposterior and lateral views of the right knee were obtained. COMPARISON: None. FINDINGS: Right total knee arthroplasty with patellar resurfacing appears well seated and in near anatomic alig nment. No fractures identified. Expected postoperative subcutaneous and intra-articular gas. IMPRESSION: 1. Right total knee arthroplasty, negative for postoperative purposes. Reviewed, dictated and finalized at location A. ICAL COORDINATOR
--- OUTSIDE RECORDS SUMMARY | 2024-05-18 01:15 | XMS_ITS | Patient Health Record ---
Author Organization [facility] Address [address] [place], [place] [id number] Care Team Providers Care General Utility Worker Name Role Phone Robbi Huber Primary Care Provider VIELKA Bugros Unavailable [phone] Allergies No Known Allergies Reason For Referral No Information Medications Medication SIG (Take, Route, Frequency, Duration) Notes Start Date End Date Status urea 390 MG/ML Topical Cream CUTANEOUS urea 390 MG/ML Topical CreamOriginal Medicationurea 390 MG/ML Topical Cream *Reorder from [employer] for eRx and Interaction Alerts* 01/01/2012 Active Atenolol 100 MG Oral Tablet ORAL atenolol 100 MG Oral TabletOriginal Medicationatenolol 100 MG Oral Tablet *Reorder from [employer] for eRx and Interaction Alerts* 01/01/2012 Active Naproxen 250 MG Oral Tablet ORAL naproxen 250 MG Oral TabletOriginal Medicationnaproxen 250 MG Oral Tablet *Reorder from [employer] for eRx and Interaction Alerts* 01/01/2012 Active Lisinopril 20 MG Oral Tablet ORAL lisinopril 20 MG Oral TabletOriginal Medicationlisinopril 20 MG Oral Tablet *Reorder from [employer] for eRx and Interaction Alerts* 08/17/2014 Active Gabapentin 100 MG Oral Capsule ORAL gabapentin 100 MG Oral CapsuleOriginal Medicationgabapentin 100 MG Oral Capsule *Reorder from [employer] for eRx and Interaction Alerts* 08/17/2014 Active Lisinopril 10 MG Oral Tablet ORAL lisinopril 10 MG Oral TabletOriginal Medicationlisinopril 10 MG Oral Tablet *Reorder from [facility] for eRx and Interaction Alerts* 01/01/2012 Active atorvastatin 10 MG Oral Tablet [Lipitor] ORAL atorvastatin 10 MG Oral Tablet [Lipitor]Original Medicationatorvastatin 10 MG Oral Tablet [Lipitor] *Reorder from [facility] for eRx and Interaction Alerts* 01/01/2012 Active aspirin 81 MG Delayed Release Oral Tablet ORAL aspirin 81 MG Delayed Release Oral TabletOriginal Medicationaspirin 81 MG Delayed Release Oral Tablet *Reorder from [facility] for eRx and Interaction Alerts* 09/08/2020 Active gabapentin 300 MG Oral Capsule [Neurontin] ORAL gabapentin 300 MG Oral Capsule [Neurontin]Original Medicationgabapentin 300 MG Oral Capsule [Neurontin] *Reorder from [facility] for eRx and Interaction Alerts* 02/03/2012 Active fexofenadine hydrochloride 60 MG Oral Tablet [Renate] ORAL fexofenadine hydrochloride 60 MG Oral Tablet [Renate]Original Medicationfexofenadine hydrochloride 60 MG Oral Tablet [Renate] *Reorder from [facility] for eRx and Interaction Alerts* 01/01/2012 Active Immunizations Vaccine Route Administration Date Status Comme nts Influenza, seasonal, injecta ble, preservative free, 3 yrs and above Unknown 12/25/2022 Administered Vital Signs Height-cm 182.88 cm 09/29/2023 Weight-kg 136.08 kg 09/29/2023 Height 72.00 in 09/29/2023 Weight 300 lbs 09/29/2023 BMI 40.68 kg/m2 09/29/2023 Encounters Encounter Location Date Provider Diagnosis [facility] [address] [place] [id number] 02/09/2024 VIELKA SNOOK Tinea unguium B35.1 ; Pain in right toe(s) M79.674 ; Pain in left toe(s) M79.675 and Atherosclerosis of [place] arteries of extremities with intermittent claudication, bilateral legs I70.213 [facility] [address] [place], [place] [id number] 07/07/2023 VIELKA SNOOK Tinea unguium B35.1 ; Pain in right foot M79.671 ; Pain in left foot M79.672 ; Atherosclerosis of [place] arteries of extremities with intermittent claudication, bilateral legs I70.213 and Acquired keratosis [keratoderma] palmaris et plantaris L85.1 [facility] [address] [place] [id number] 09/29/2023 VIELKA SNOOK Tinea unguium B35.1 ; Pain in right foot M79.671 ; Pain in left foot M79.672 ; Atherosclerosis of [place] arteries of extremities with intermittent claudication, bilateral legs I70.213 and Acquired keratosis [keratoderma] palmaris et plantaris L85.1 [facility] [address] [place] [id number] 12/08/2023 VIELKA SNOOK Tinea unguium B35.1 ; Acquired keratosis [keratoderma] palmaris et plantaris L85.1 ; Atherosclerosis of [place] arteries of extremities with intermittent claudication, bilateral legs I70.213 ; Pain in right foot M79.671 and Pain in left foot M79.672 [facility] [address] [place] [id number] 04/19/2024 VIELKA SNOOK Tinea unguium B35.1 ; Pain in right toe(s) M79.674 ; Pain in left toe(s) M79.675 and Atherosclerosis of [place] arteries of extremities with intermittent claudication, bilateral legs I70.213 Assessments Encounter Date Diagnosis (ICD Code) Assessment Notes Treatment Notes Treatment Clinical Notes Section Notes 07/07/2023 Tinea unguium (ICD-10 - B35.1) Nails 1-5 Bilateral were debrided extensively with nail nippers and emery board, reducing length and girth to pink healthy tissue with any subungual debris and necrotic tissue removed 07/07/2023 Pain in right foot (ICD-10 - M79.671) 09/29/2023 Tinea unguium (ICD-10 - B35.1) Nails 1-5 Bilateral were debrided extensively with nail nippers and emery board, reducing length and girth to pink healthy tissue with any subungual debris and necrotic tissue removed 09/29/2023 Pain in right foot (ICD-10 - M79.671) 12/08/2023 Tinea unguium (ICD-10 - B35.1) Nails 1-5 Bilateral were debrided extensively with nail nippers and emery board, reducing length and girth to pink healthy tissue with any subungual debris and necrotic tissue removed 12/08/2023 Acquired keratosis [keratoderma] palmaris et plantaris (ICD-10 - L85.1) A total of 2 corns or calluses, as described in the note above, were cut and pared utilizing a #15 blade 02/09/2024 Tinea unguium (ICD-10 - B35.1) FUNGAL TOENAILS: Discussed various treatment options for fungal toenails including debridement, topical antifungals, oral antifungals, toenail avulsion, or toenail matrixectomy. NAIL DEBRIDEMENT: Nails 1-5 Bilateral were debrided extensively with nail nippers and emery board, reducing length and girth to pink healthy tissue with any subungual debris and necrotic tissue removed 02/09/2024 Pain in right toe(s) (ICD-10 - M79.674) 04/19/2024 Tinea unguium (ICD-10 - B35.1) FUNGAL TOENAILS: Discussed various treatment options for fungal toenails including debridement, topical antifungals, oral antifungals, toenail avulsion, or toenail matrixectomy. NAIL DEBRIDEMENT: Nails 1-5 Bilateral were debrided extensively with nail nippers and emery board, reducing length and girth to pink healthy tissue with any subungual debris and necrotic tissue removed 04/19/2024 Pain in right toe(s) (ICD-10 - M79.674) 04/19/2024 Pain in left toe(s) (ICD-10 - M79.675) 02/09/2024 Pain in left toe(s) (ICD-10 - M79.675) 12/08/2023 Atherosclerosis of [place] arteries of extremities with intermittent claudication, bilateral legs (ICD-10 - I70.213) 09/29/2023 Pain in left foot (ICD-10 - M79.672) 07/07/2023 Pain in left foot (ICD-10 - M79.672) 07/07/2023 Atherosclerosis of [place] arteries of extremities with intermittent claudication, bilateral legs (ICD-10 - I70.213) 09/29/2023 Atherosclerosis of [place] arteries of extremities with intermittent claudication, bilateral legs (ICD-10 - I70.213) 02/09/2024 Atherosclerosis of [place] arteries of extremities with intermittent claudication, bilateral legs (ICD-10 - I70.213) 12/08/2023 Pain in right foot (ICD-10 - M79.671) 04/19/2024 Atherosclerosis of [place] arteries of extremities with intermittent claudication, bilateral legs (ICD-10 - I70.213) 12/08/2023 Pain in left foot (ICD-10 - M79.672) 09/29/2023 Acquired keratosis [keratoderma] palmaris et plantaris (ICD-10 - L85.1) A total of 2 corns or calluses, as described in the note above, were cut and pared utilizing a #15 blade 07/07/2023 Acquired keratosis [keratoderma] palmaris et plantaris (ICD-10 - L85.1) A total of 2 corns or calluses, as described in the note above, were cut and pared utilizing a #15 blade Plan Of Treatment Next Appt Details Provider Name:VIELKA MITCHELL, 01:00:00 PM, [address], [place], [place], [id number], Insurance Providers Payer Name Payer Address Payer Phone Subscriber Number Group Number Insured Name Patient Relationship to Insured Coverage Start Date Coverage End Date [facility] [address] [place], [place] [id number] RODERICK GUERRA Self - patient is the insured [employer] [address] [place], [place] [id number] RODERICK GUERRA Self - patient is the insured
--- OUTSIDE RECORDS SUMMARY | 2024-05-18 01:16 | XMS_ITS ---
Author Organization [facility] Address [address] [place], [place] [phone] Care Team Providers Care Floor Covering Layer Name Role Phone Huber Culp Primary Care Provider Unavailabl VIELKA Leonardo Unavailable [phone] REASON FOR VISIT *General care Encounters Encounter Location Date Provider Diagnosis [facility] [address] [place], [place] [phone] 04/19/2024 VIELKA BISWAS Plan Of Treatment Next Appt Details Provider Name:VIELKA BISWAS, 01:00:00 PM, [address], [place], [place], [phone], Progress Notes * RODERICK STEINER SDOB: [birth year] (73 yo M)Acc No.[id number]:04/19/2024 Patient: RODERICK ROSADO Provider: Alea Biswas DPM :1950 A ge:73 Y S ex:Male Date:04/19/2024 Address:[facility] [address] [place], [place] Pcp:Huber Culp Subjective: * Chief Complaints: * 1 . *General care. * Medical History: Objective: * Vitals: Assessment: Plan: * Treatment: * Billing Information: * Visit Code: * Procedure Codes: * Electronic signature of VIELKA BISWAS DPM on 05/18/2024 at 01:15 AM [employer] REPORTS DEVELOPER Sign off status: Pending * Provider: Alea Biswas DPM Date: 0 04/19/2024 Generated for Niko linares/Vishnu/Dexter on: 0 05/18/2024 01:15 AM MICROSTRATEGY REPORTS DEVELOPER
--- OUTSIDE RECORDS SUMMARY | 2024-05-18 01:16 | XMS_ITS | Encounter Summary ---
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 Gender Identity Not on file Sexual Orientation Not on file documented as of this encounter Plan of Treatment Not on file documented as of this encounter Procedures Procedure Name Priority Date/Time Associated Diagnosis Comments SCAN - LABS 09/30/2020 documented in this encounter Results * SCAN - LABS (09/30/2020) us Provider Scanning Final Result documented in this encounter Visit Diagnoses Not on filedocumented in this encounter Care Teams Furnace Caretaker Relationship Specialty Start Date End Date Huber Culp MD [address] [facility] [address] [place] [address] PCP - General Family Medicine 12/08/17 documented as of this encounter
--- OUTSIDE RECORDS SUMMARY | 2024-05-18 01:16 | XMS_ITS | Encounter Summary ---
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 Gender Identity Not on file Sexual Orientation Not on file documented as of this encounter Plan of Treatment Not on file documented as of this encounter Procedures Procedure Name Priority Date/Time Associated Diagnosis Comments SCAN - LABS 05/28/2022 documented in this encounter Results * SCAN - LABS (05/28/2022) us Provider Scanning Final Result documented in this encounter Visit Diagnoses Not on filedocumented in this encounter Care Teams Cellular Equipment Installer Relationship Specialty Start Date End Date Huber Culp MD [address] [facility] [address] [place] [address] PCP - General Family Medicine 12/08/17 documented as of this encounter
--- OUTSIDE RECORDS SUMMARY | 2024-05-18 01:16 | XMS_ITS | Referral Summary ---
Author Organization [facility] [address] Address [address] [place] [address] Care Team Providers Care Cold Roll Operator Name Role Phone Huber Culp MD Primary Care Provider Encounters Date Type Department Care Team Description 03/25/2024 11:39 AM MOVEMENT THERAPIST - 03/25/2024 11:59 PM MOVEMENT THERAPIST Hospital Encounter [facility] Radiology at [address] [address] Aneurysm of ascending aorta without rupture (HCC) Discharge Disposition: Discharge to home or self care 03/15/2024 10:00 AM MOVEMENT THERAPIST Ancillary Procedure [facility] [address] [place] [address] [place] [phone] HTN (hypertension), benign; Mitral valve insufficiency and aortic valve insufficiency 03/14/2024 Telephone [facility] [address] [place] [address] [place] [phone] Jair Barney MD Scheduling Testing/Treatment 03/11/2024 3:00 PM MOVEMENT THERAPIST Office Visit [facility] [address] [place] [address] [place] [phone] Jair Barney MD HTN (hypertension), benign (Primary Dx); Mitral valve insufficiency and aortic valve insufficiency 03/11/2024 3:00 PM MOVEMENT THERAPIST Ancillary Procedure [facility] [address] [place] [address] [place] [phone] HTN (hypertension), benign; Aneurysm of ascending aorta without rupture (HCC); Mitral valve insufficiency and aortic valve insufficiency 03/08/2024 Orders Only [facility] Scanning, Provider from Last 3 Months Allergies No known active allergies Medications loratadine (CLARITIN) 10 mg tablet 0 Active atenoloL (TENORMIN) 25 mg tablet Take 1 tablet (25 mg total) by mouth daily 0 Active fenofibrate (TRIGLIDE) 160 mg tablet Take 1 tablet (160 mg total) by mouth daily 0 Active atorvastatin (LIPITOR) 40 mg tablet Take 1 tablet (40 mg total) by mouth daily 0 Active aspirin 81 mg enteric coated tablet Take 1 tablet (81 mg total) by mouth daily Active gabapentin (NEURONTIN) 300 mg capsule Take 1 capsule (300 mg total) by mouth 3 (three) times a day Active lisinopriL (PRINIVIL,ZESTRI L) 30 mg tablet Take 1 tablet (30 mg total) by mouth daily 2 Active antiarthritic combination no.2 900 mg tablet Take 900 mg by mouth Active pantoprazole DR (PROTONIX) 40 mg EC tablet Take 1 tablet (40 mg total) by mouth every morning 3 Active zolpidem CR (AMBIEN CR) 12.5 mg CR tablet Take 1 tablet (12.5 mg total) by mouth nightly at bedtime 3 Active hydroCHLOROthiaz tj (HYDRODIURIL) 25 mg tablet Take 0.5 tablets (12.5 mg total) by mouth daily 45 tablet 3 4 09/11/19 25 Active Additional Information Patient taking differently: 25 mgoral Daily, Reported on 03/11/2024 FeroSuL 325 mg (65 mg iron) tablet Take 1 tablet (325 mg total) by mouth 2 (two) times a day 4 Active docusate sodium (COLACE) 100 mg capsule Take 1 capsule (100 mg total) by mouth as needed 4 Active Zepbound 2.5 mg/0.5 mL pen injector once a week 4 Active Active Problems Problem Noted Date Diagnosed Date Mitral valve insufficiency and aortic valve insu fficiency 06/16/2021 HTN (hypertension), benign 03/25/2020 Social History Tobacco Use Types Packs/Day Years Used Date Smoking Tobacco: Never Smokeless Tobacco: Never Tobacco Cessation:Counseling Given: Not Answered Sex and Gender Information Value Date Recorded Sex Assigned at Not on file Legal Sex Male 1:55 AM MOVEMENT THERAPIST Gender Identity Not on file Sexual Orientation Not on file Last Filed Vital Signs Vital Sign Reading Time Taken Comments Blood Pressure 119/67 03/11/2024 3:19 PM MOVEMENT THERAPIST Pulse 79 03/11/2024 3:19 PM MOVEMENT THERAPIST Temperature 36.4 C (97.6 F) 03/11/2024 3:19 PM MOVEMENT THERAPIST Respiratory Rate - - Oxygen Saturation 97% 03/11/2024 3:19 PM MOVEMENT THERAPIST Inhaled Oxygen Concentration - - Weight 120.2 kg (265 lb) 03/11/2024 3:19 PM MOVEMENT THERAPIST Height 182.9 cm (6') 03/11/2024 3:19 PM MOVEMENT THERAPIST Body Mass Index 35.94 03/11/2024 3:19 PM MOVEMENT THERAPIST Plan of Treatment Not on file Procedures Procedure Name Priority Date/Time Associated Diagnosis Comments CTA CHEST W CONTRAST Schedule Routine, Read Routine (OP Routine) 03/25/2024 12:06 PM MOVEMENT THERAPIST Aneurysm of ascending aorta without rupture (HCC) POCT CREATININE - DEVICE Routine 03/25/2024 11:54 AM MOVEMENT THERAPIST NM MPI SPECT (REST AND/OR STRESS) MULTIPLE STUDIES Schedule Routine, Read Routine (OP Routine) 03/15/2024 12:07 PM MOVEMENT THERAPIST HTN (hypertension), benign Mitral valve insufficiency and aortic valve insufficiency TRANSTHORACIC ECHO (TTE) COMPLETE W DOPPLER/CF W CONTRAST Routine 03/11/2024 3:29 PM MOVEMENT THERAPIST HTN (hypertension), benign Aneurysm of ascending aorta without rupture (HCC) Mitral valve insufficiency and aortic valve insufficiency SCAN - LABS 03/08/2024 from Last 3 Months Results * CTA Chest W Contrast (03/25/2024 12:06 PM MOVEMENT THERAPIST) Anatomical Region Laterality Modality Chest N/A Computed Tomogra phy 03/25/2024 12:3 8 PM MOVEMENT THERAPIST Impressions 03/25/2024 12:38 PM MOVEMENT THERAPIST No change in aortic dilatation when compared to the prior study of 10/11/2022. The aorta reaches a maximal dimension of 4.3 x 4.6 cm when measured orthogonal to the long axis. Electronically signed by: Jean iDaz M.D. Narrative 03/25/2024 12:38 PM MOVEMENT THERAPIST Examination: CT angiogram of the chest with intravenous contrast HISTORY: Evaluate aortic aneurysm TECHNIQUE: Standard CT angiogram of the chest was performed after the administration of 93 mL of Optiray 350 intravenous contrast; images were sent to a dimensional workstation for further evaluation. FINDINGS: Comparison is made to prior CT of 10/11/2022. The lungs are clear. There is no interstitial lung disease or consolidation. No pulmonary nodule is seen. No supraclavicular, axillary or mediastinal lymphadenopathy. No pleural or pericardial effusion. The heart size is within normal limits. Images of the upper abdomen are unremarkable. There is no evidence for an acute aortic syndrome. The aorta is measured orthogonal to the long axis and the following measurements are obtained: 1. Sinuses of Valsalva 3.5 x 3.2 x 3.0 cm which is unchanged 2. Sinotubular junction 2.5 x 2.8 cm which is also unchanged. 3. At its maximum, the aorta measures 4.3 x 4.6 cm which is unchanged. The bone windows do not demonstrate any osseous lesion. Procedure Note Jean Diaz MD - 03/25/2024 Examination: CT angiogram of the chest with intravenous contrast HISTORY: Evaluate aortic aneurysm TECHNIQUE: Standard CT angiogram of the chest was performed after the administration of 93 mL of Optiray 350 intravenous contrast; images were sent to a dimensional workstation for further evaluation. FINDINGS: Comparison is made to prior CT of 10/11/2022. The lungs are clear. There is no interstitial lung disease or consolidation. No pulmonary nodule is seen. No supraclavicular, axillary or mediastinal lymphadenopathy. No pleural or pericardial effusion. The heart size is within normal limits. Images of the upper abdomen are unremarkable. There is no evidence for an acute aortic syndrome. The aorta is measured orthogonal to the long axis and the following measurements are obtained: 1. Sinuses of Valsalva 3.5 x 3.2 x 3.0 cm which is unchanged 2. Sinotubular junction 2.5 x 2.8 cm which is also unchanged. 3. At its maximum, the aorta measures 4.3 x 4.6 cm which is unchanged. The bone windows do not demonstrate any osseous lesion. IMPRESSION: No change in aortic dilatation when compared to the prior study of 10/11/2022. The aorta reaches a maximal dimension of 4.3 x 4.6 cm when measured orthogonal to the long axis. Electronically signed by: Jean Diaz M.D. us Jair Barney MD IMG CT PROCEDURES Final Result * POCT creatinine (03/25/2024 11:54 AM MOVEMENT THERAPIST) Creatinine POC 1.2 0.7 - 1.3 mg/dL Blood 03/25/2024 11:5 4 AM MOVEMENT THERAPIST 03/25/2024 11:54 AM MOVEMENT THERAPIST Jair Barney MD LAB POCT ORDERABLES - DEVICE F inal Result Performing Organization Address City/State/[facility] Co de Phone Number [facility] Department [place] [address] * NM MPI SPECT (Rest and/or Stress) Multiple Studies (03/15/2024 12:07 PM MOVEMENT THERAPIST) Anatomical Region Laterality Modality Body N/A Electrocardiogra phy Narrative 03/15/2024 10:29 PM MOVEMENT THERAPIST Table formatting from the original result was not included. [facility] [address] [address] Nuclear MPI Pharmaceutical Study Patient Name: Rickey Joshi Gender: male : 1950 Date of Study: 03/15/24 Ordering Provider: Jair Barney MD Primary care Provider: Huber Culp MD Pt BMI: 35 Examination Myocardial Perfusion Imaging: Pharmacologic/Spect with Gated Imaging and Ejection Fraction Measurement. Cardiac History Aortic valve insufficiency . Reason for Examination preoperative evaluation. Cardiac Risk Factors hypertension and dyslipidemia. 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 Baseline BP: 104 / 68 mm Hg Baseline HR: 79 /min Peak BP: 104 / 68 mm Hg Peak HR: 90 /min 60 % of PMHR HR Response to Pharmaceutical: Normal BP Response to Pharmaceutical: Normal Functional Capacity: average ST changes: None Symptoms during Pharmaceutical Injection : None Reasons for Termination: End of Protocol Nuclear Procedure Radiopharmaceutical: 11.0 mCi Tc-99M Tetrofosmin IV for rest and 32.0 mCi Tc-99M Tetrofosmin IV for stress. Protocol: Standard myocardial perfusion images were obtained after resting injection of Tc-99M Tetrofosmin intravenously. Resting images were obtained after a 30 minutes delay. Subsequently, an intravenous infusion of 0.4 mg/5ml Regadenoson given over a 10 second injection was given under the supervision of the physician. Tc-99M tetrofosimin was injected intravenously 10-20 seconds post lexiscan/saline flush injection and standard myocardial images were obtained after a 30 minute delay. Images are obtained with a solid state camera. Rest images are acquired in the upright position and stress images are acquired in both the upright and supine positions The overall quality of the study is good. Motion correction was not performed. Regadenoson MPI Stage Time BP HR Sitting 1103 10/68 79 Regadenoson 1139 1141 94/64 85 Recovery 1142 1144 97/64 78 Images Interpretation Gated Spect imaging reveals persistent decreased uptake in proximal to mid inferior wall with improvement in stress images. Wall motion normal. Wall function with LVEF of 70% No LV dilatation present. Impression Pharmaceutical Myocardial perfusion imaging is normal. Wall motion normal. LVEF = % No chest pain during stress and no ecg changes. Compared to the previous study from 09/24/2022, the current study reveals NSC. Recommendation Continue medical therapy. Patient cleared for knee surgery. Finding discussed with the patient personally. Stress myocardial perfusion imaging has a known 10-15% false negative rate and a small (5-10%) false positive rate. Stress test supervised by Chelsea Mendoza NP. Images interpreted by Jair Barney MD. us Jair Barney MD IMG NM PROCEDURES Final Result * TRANSTHORACIC ECHO (TTE) COMPLETE W DOPPLER/CF W CONTRAST (03/11/2024 3:29 PM MOVEMENT THERAPIST) LV EF 63 % CARDIOREPORT Anatomical Region Laterality Modality Ultrasound 03/11/2024 3:00 PM MOVEMENT THERAPIST Narrative 03/11/2024 9:02 PM MOVEMENT THERAPIST Patient name: Rickey Joshi Date of test: 03/11/2024 Type of test: TTE w/Doppler Hospital #: 0 Date of : 1950 () Timber Hewer: LARRY Monroe RDCS Referring Physician: JAIR BARNEY MD Contrast Agent: 0.30 ml Definity Administered, (1.20 ml wasted). Contrast Administered by: LARRY Monroe RDCS Supervised/Interpreted by: Jair Barney MD Diagnosis: Location: [facility] Reason for test: HTN, Aneurysm Aortic MV Structure: Normal, MV Motion: Normal, Mitral Annulus: Normal AV Structure: tricuspid and is Normal, AV Motion: Normal Aotic root: Normal, TM: Normal, PV: Normal Valvular Vegetations: none seen, Mass/Thrombi: none seen RA: Normal Measurements: M-Mode Normal Aotic Root: <3.8 LA: <4.0 RV: <2.8 LV(ED): <5.7 LV(ES): Variable 2D Linear Normal Aotic Root: 3.5 cm <4.0 Ao Indexed: 1.5 cm/M2 <2.0 LA: 4.1 cm <4.0 RV: 3.0 cm <4.2 LV(ED): 4.8 cm <5.9 LV(ES): 3.0 cm <4.0 2D Vol. Normal Indexed Indexed Normal RA: 35.0 ml 14.6 ml/M2 11-39 LA: 39.0 ml 16.2 ml/M2 16-34 RV: <12.7 LV(ED): 115.0 ml 62-150 47.9 ml/M2 <75 LV(ES): 43.0 ml 21-61 17.9 ml/M2 <32 3D Vol. Indexed Normal LV(ED): <75 LV(ES): <32 LV EF: 63 % (Normal: >=52%) LV Septum: 0.9 cm (Normal: <1.0 cm) Wall Motion Scoring (1=Normal 2=Hypo 3=Akinetic 4=Dyskin./Aneurysm 0=Not visualized) Parasternal Long [place]:MAS=2 BAS=2 MIL=1 ANITA=1 Parasternal Short [place]:MAS=2 MIS=1 CA=1 MIL=1 MAL=1 MA=1 Apical 4 Chambers:=1 MIS=1 BIS=1 BAL=1 MAL=1 AL=1 AC=1 Apical 2 Chambers:AI=1 CA=1 BI=1 BA=1 MA=1 AA=1 AC=1 LV Global Longitudinal Strain: -20% (Normal <-17%) RV Global Longitudinal Strain: LV Function: Normal LV Ejection Fraction, (EF=52-72%) Septal wall mild hypokinesis. RV Function: Normal Septal Motion: Normal Pericardial Effusion: none seen Atrial Septum: Normal DOPPLER/COLOR FLOW DOPPLER RESULTS: Diastolic Function: Impaired Relaxation Tricuspid Valve: mild TV regurgitation Pulmonic Valve: normal PV AV Regurgitation: Mild to Mod AR AV Stenosis: no AV Area: cm2 AV Pressure Gradient (mmHg): Mean: 0, Peak:0 MV Regurgitation: No MR seen MV Stenosis: no MS MV Area: cm2 MV Pressure Gradient (mmHg): Mean: 0 MV ERO: cm Regurg. Vol.: ml/beat Regurg. Frac.: % PA Pressure: 21+RA mmHg DOPPLER/COLOR FOLOW DOPPLER COMMENTS: Mild to Mod AR, No MR seen, no , no MS, mild TV regurgitation, normal PV. Diastolic function: Impaired Relaxation CONTRAST: 0.30 ml Definity Administered, (1.20 ml wasted). SUMMARY: Proximal ascending aorta janis 4.4 cm. LA is normal. Normal RV cavity size. LV cavity size is normal. Septal wall mild hypokinesis with LVEF 63%. Normal LV wall thickness/mass. Normal Inferior vena cava. Mild to Mod AR, No MR seen, no , no MS, mild TV regurgitation, normal PV. Diastolic function: Impaired Relaxation.Normal global LV Myocardial longitudinal function and LV strain pattern. Confirmed on 03/11/2024 - 21:02:54 by Jair Barney MD By signing this report, the attending costumer assistant certifies that he or she has personally supervised and interpreted the echocardiogram and has reviewed and or edited and agrees with the written comments contained within the report. Procedure Note Jair Barney MD - 03/11/2024 Patient name: Rickey Joshi Date of test: 03/11/2024 Type of test: TTE w/Doppler [facility] #: 0 Date of : 1950 (M) Timber Hewer: LARRY Monroe [facility] Referring Physician: JAIR BARNEY MD Contrast Agent: 0.30 ml Definity Administered, (1.20 ml wasted). Contrast Administered by: LARRY Monroe RDCS Supervised/Interpreted by: Jair Barney MD Diagnosis: Location: [facility] Reason for test: HTN, Aneurysm Aortic MV Structure: Normal, MV Motion: Normal, Mitral Annulus: Normal AV Structure: tricuspid and is Normal, AV Motion: Normal Aotic root: Normal, TM: Normal, PV: Normal Valvular Vegetations: none seen, Mass/Thrombi: none seen RA: Normal Measurements: M-Mode Normal Aotic Root: <3.8 LA: <4.0 RV: <2.8 LV(ED): <5.7 LV(ES): Variable 2D Linear Normal Aotic Root: 3.5 cm <4.0 Ao Indexed: 1.5 cm/M2 <2.0 LA: 4.1 cm <4.0 RV: 3.0 cm <4.2 LV(ED): 4.8 cm <5.9 LV(ES): 3.0 cm <4.0 2D Vol. Normal Indexed Indexed Normal RA: 35.0 ml 14.6 ml/M2 11-39 LA: 39.0 ml 16.2 ml/M2 16-34 RV: <12.7 LV(ED): 115.0 ml 62-150 47.9 ml/M2 <75 LV(ES): 43.0 ml 21-61 17.9 ml/M2 <32 3D Vol. Indexed Normal LV(ED): <75 LV(ES): <32 LV EF: 63 % (Normal: >=52%) LV Septum: 0.9 cm (Normal: <1.0 cm) Wall Motion Scoring (1=Normal 2=Hypo 3=Akinetic 4=Dyskin./Aneurysm 0=Not visualized) Parasternal Long [place]:MAS=2 BAS=2 MIL=1 ANITA=1 Parasternal Short [place]:MAS=2 MIS=1 CA=1 MIL=1 MAL=1 MA=1 Apical 4 Chambers:=1 MIS=1 BIS=1 BAL=1 MAL=1 AL=1 AC=1 Apical 2 Chambers:AI=1 CA=1 BI=1 BA=1 MA=1 AA=1 AC=1 LV Global Longitudinal Strain: -20% (Normal <-17%) RV Global Longitudinal Strain: LV Function: Normal LV Ejection Fraction, (EF=52-72%) Septal wall mild hypokinesis. RV Function: Normal Septal Motion: Normal Pericardial Effusion: none seen Atrial Septum: Normal DOPPLER/COLOR FLOW DOPPLER RESULTS: Diastolic Function: Impaired Relaxation Tricuspid Valve: mild TV regurgitation Pulmonic Valve: normal PV AV Regurgitation: Mild to Mod AR AV Stenosis: no AV Area: cm2 AV Pressure Gradient (mmHg): Mean: 0, Peak:0 MV Regurgitation: No MR seen MV Stenosis: no MS MV Area: cm2 MV Pressure Gradient (mmHg): Mean: 0 MV ERO: cm Regurg. Vol.: ml/beat Regurg. Frac.: % PA Pressure: 21+RA mmHg DOPPLER/COLOR FOLOW DOPPLER COMMENTS: Mild to Mod AR, No MR seen, no , no MS, mild TV regurgitation, normal PV. Diastolic function: Impaired Relaxation CONTRAST: 0.30 ml Definity Administered, (1.20 ml wasted). SUMMARY: Proximal ascending aorta janis 4.4 cm. LA is normal. Normal RV cavity size. LV cavity size is normal. Septal wall mild hypokinesis with LVEF 63%. Normal LV wall thickness/mass. Normal Inferior vena cava. Mild to Mod AR, No MR seen, no , no MS, mild TV regurgitation, normal PV. Diastolic function: Impaired Relaxation.Normal global LV Myocardial longitudinal function and LV strain pattern. Confirmed on 03/11/2024 - 21:02:54 by Jair Barney MD By signing this report, the attending costumer assistant certifies that he or she has personally supervised and interpreted the echocardiogram and has reviewed and or edited and agrees with the written comments contained within the report. us Jair Barney MD CV ECHO PROCEDURES Final Resul t * SCAN - LABS (03/08/2024) us Provider Scanning Final Result from Last 3 Months Insurance FOR LIFE [employer] MEDICARE PPO MEDICARE FOR LIFE FOR LIFE [employer] MEDICARE PPO Care Teams Cold Roll Operator Relationship Specialty Start Date End Date Huber Clup MD [address] [facility] [address] [place] [address] PCP - General Family Medicine 12/08/17
--- OUTSIDE RECORDS SUMMARY | 2024-05-18 01:16 | XMS_ITS | Encounter Summary ---
Author Organization [facility] Address [address] [place] [address] Phone Care Team Providers Care Deputy Sheriff K9 Handler Name Role Phone Huber Culp MD Primary Care Provider Encounter Details Date Type Department Care Team (Latest Contact Info) Description 03/08/2024 Orders Only [facility] Scanning, Provider Social History Tobacco Use Types Packs/Day Years Used Date Smoking Tobacco: Never Smokeless Tobacco: Never Sex and Gender Information Value Date Recorded Sex Assigned at Not on file Legal Sex Male 1:55 AM LEATHER CLEANER Gender Identity Not on file Sexual Orientation Not on file documented as of this encounter Plan of Treatment Not on file documented as of this encounter Procedures Procedure Name Priority Date/Time Associated Diagnosis Comments SCAN - LABS 03/08/2024 documented in this encounter Results * SCAN - LABS (03/08/2024) us Provider Scanning Final Result documented in this encounter Visit Diagnoses Not on filedocumented in this encounter Care Teams Deputy Sheriff K9 Handler Relationship Specialty Start Date End Date Huber Culp MD [address] [place] [address] PCP - General Family Medicine 12/08/17 documented as of this encounter
--- OUTSIDE RECORDS SUMMARY | 2024-05-18 01:16 | XMS_ITS ---
Author Organization [facility] Address [address] [place], [place] [id number] Care Team Providers Care Propagator Laborer Name Role Phone Culp Huber Primary Care Provider VIELKA Burgos Unavailable [phone] REASON FOR VISIT Patient presents for at-risk foot care . The patient has painful toenails that cause difficulty with ambulation and shoegear. The onset is gradual Medications Medication SIG (Take, Route, Frequency, Duration) Notes Start Date End Date Status Naproxen 250 MG Oral Tablet ORAL naproxen 250 MG Oral TabletOriginal Medicationnaproxen 250 MG Oral Tablet *Reorder from [facility] for eRx and Interaction Alerts* 01/01/2012 Active Lisinopril 20 MG Oral Tablet ORAL lisinopril 20 MG Oral TabletOriginal Medicationlisinopril 20 MG Oral Tablet *Reorder from [facility] for eRx and Interaction Alerts* 08/17/2014 Active Gabapentin 100 MG Oral Capsule ORAL gabapentin 100 MG Oral CapsuleOriginal Medicationgabapentin 100 MG Oral Capsule *Reorder from [facility] for eRx and Interaction Alerts* 08/17/2014 Active Lisinopril 10 MG Oral Tablet ORAL lisinopril 10 MG Oral TabletOriginal Medicationlisinopril 10 MG Oral Tablet *Reorder from [facility] for eRx and Interaction Alerts* 01/01/2012 Active aspirin 81 MG Delayed Release Oral Tablet ORAL aspirin 81 MG Delayed Release Oral TabletOriginal Medicationaspirin 81 MG Delayed Release Oral Tablet *Reorder from [facility] for eRx and Interaction Alerts* 09/08/2020 Active urea 390 MG/ML Topical Cream CUTANEOUS urea 390 MG/ML Topical CreamOriginal Medicationurea 390 MG/ML Topical Cream *Reorder from [facility] for eRx and Interaction Alerts* 01/01/2012 Active Atenolol 100 MG Oral Tablet ORAL atenolol 100 MG Oral TabletOriginal Medicationatenolol 100 MG Oral Tablet *Reorder from [facility] for eRx and Interaction Alerts* 01/01/2012 Active atorvastatin 10 MG Oral Tablet [Lipitor] ORAL atorvastatin 10 MG Oral Tablet [Lipitor]Original Medicationatorvastatin 10 MG Oral Tablet [Lipitor] *Reorder from [facility] for eRx and Interaction Alerts* 01/01/2012 Active gabapentin 300 MG Oral Capsule [Neurontin] ORAL gabapentin 300 MG Oral Capsule [Neurontin]Original Medicationgabapentin 300 MG Oral Capsule [Neurontin] *Reorder from [facility] for eRx and Interaction Alerts* 02/03/2012 Active fexofenadine hydrochloride 60 MG Oral Tablet [Renate] ORAL fexofenadine hydrochloride 60 MG Oral Tablet [Renate]Original Medicationfexofenadine hydrochloride 60 MG Oral Tablet [Renate] *Reorder from [facility] for eRx and Interaction Alerts* 01/01/2012 Active Encounters Encounter Location Date Provider Diagnosis [facility] [address] [id number] 04/19/2024 VIELKA SNOOK Tinea unguium B35.1 ; Pain in right toe(s) M79.674 ; Pain in left toe(s) M79.675 and Atherosclerosis of [place] arteries of extremities with intermittent claudication, bilateral legs I70.213 Assessments Encounter Date Diagnosis (ICD Code) Assessment Notes Treatment Notes Treatment Clinical Notes Section Notes 04/19/2024 Tinea unguium (ICD-10 - B35.1) FUNGAL [...] Pain in left toe(s) (ICD-10 - M79.675) 04/19/2024 Atherosclerosis of [place] arteries of extremities with intermittent claudication, bilateral legs (ICD-10 - I70.213) Plan Of Treatment Treatment Notes Assessment Notes Tinea unguium FUNGAL TOENAILS: Discussed various treatment options for fungal toenails including debridement, topical antifungals, oral antifungals, toenail avulsion, or toenail matrixectomy. NAIL DEBRIDEMENT: Nails 1-5 Bilateral were debrided extensively with nail nippers and emery board, reducing length and girth to pink healthy tissue with any subungual debris and necrotic tissue removed Next Appt Details Follow Up: 10-12 Weeks, Reas on: At Risk Foot care, sooner if problems arise Provider Name:VIELKA BISWAS, 01:00:00 PM, [address], [address], [phone], Progress Notes * RODERICK STEINER SDOB: [birth year] (73 yo M)Acc No.[id number]:04/19/2024 Patient: RODERICK ROSADO Provider: Alea Biswas DPM :1950 A ge:73 Y S ex:Male Date:04/19/2024 Address:[address] [place], [place] [id number] Pcp:Huber Culp Subjective: * Chief Complaints: * Elijah lazo presents for at-risk foot care . The patient has painful toenails that cause difficulty with ambulation and shoegear. The onset is gradual * HPI: H PI: General care Elijah lazo presents to the office for at risk foot care. Patient states that their nails are thickened, elongated and painful. Patient states that it is aggravated by shoe gear. Onset is gradual. Patient denies being diabetic., Patient denies taking prescription blood thinners but does take a daily aspirin., Date last seen by Dr. Culp was 02/2024., Initials mca. sample. * ROS: G eneral / Constitutional: Patient denies c hills, fatigue, fever. C ardiovascular: Patient denies p alpatations, other vascular anomalies.?Patient complains of h air loss on legs, extremities cool. M usculoskeletal: Patient denies o rthotic use, broken foot bone, childhood foot problems. S kin: Patient denies h hermelinda, rash. P atient complains of f ungal nails, nail changes, dry skin. N eurologic: Patient denies s troke, Numbness, Burning/Tingling. ? * Medical History: * Surgical History: * Hospitalization/Major Diagno stic Procedure: * Medications: T akingAtenolol 100 MG Oral Tablet ORAL , Notes to Pharmacist: atenolol 100 MG Oral TabletOriginal Medicationatenolol 100 MG Oral Tablet *Reorder from [facility] for eRx and Interaction Alerts*Lisinopril 20 MG Oral Tablet ORAL , Notes to Pharmacist: lisinopril 20 MG Oral TabletOriginal Medicationlisinopril 20 MG Oral Tablet *Reorder from [facility] for eRx and Interaction Alerts*Naproxen 250 MG Oral Tablet ORAL , Notes to Pharmacist: naproxen 250 MG Oral TabletOriginal Medicationnaproxen 250 MG Oral Tablet *Reorder from [facility] for eRx and Interaction Alerts*Lisinopril 10 MG Oral Tablet ORAL , Notes to Pharmacist: lisinopril 10 MG Oral TabletOriginal Medicationlisinopril 10 MG Oral Tablet *Reorder from [facility] for eRx and Interaction Alerts*Gabapentin 100 MG Oral Capsule ORAL , Notes to Pharmacist: gabapentin 100 MG Oral CapsuleOriginal Medicationgabapentin 100 MG Oral Capsule *Reorder from [facility] for eRx and Interaction Alerts*aspirin 81 MG Delayed Release Oral Tablet ORAL , Notes to Pharmacist: aspirin 81 MG Delayed Release Oral TabletOriginal Medicationaspirin 81 MG Delayed Release Oral Tablet *Reorder from [facility] for eRx and Interaction Alerts*atorvastatin 10 MG Oral Tablet [Lipitor] ORAL , Notes to Pharmacist: atorvastatin 10 MG Oral Tablet [Lipitor]Original Medicationatorvastatin 10 MG Oral Tablet [Lipitor] *Reorder from [facility] for eRx and Interaction Alerts*fexofenadine hydrochloride 60 MG Oral Tablet [Renate] ORAL , Notes to Pharmacist: fexofenadine hydrochloride 60 MG Oral Tablet [Renate]Original Medicationfexofenadine hydrochloride 60 MG Oral Tablet [Renate] *Reorder from [facility] for eRx and Interaction Alerts*gabapentin 300 MG Oral Capsule [Neurontin] ORAL , Notes to Pharmacist: gabapentin 300 MG Oral Capsule [Neurontin]Original Medicationgabapentin 300 MG Oral Capsule [Neurontin] *Reorder from [facility] for eRx and Interaction Alerts*urea 390 MG/ML Topical Cream CUTANEOUS , Notes to Pharmacist: urea 390 MG/ML Topical CreamOriginal Medicationurea 390 MG/ML Topical Cream *Reorder from [facility] for eRx and Interaction Alerts*Medication List reviewed and reconciled with the patientTaking Atenolol 100 MG Oral Tablet ORAL , Notes to Pharmacist: atenolol 100 MG Oral TabletOriginal Medicationatenolol 100 MG Oral Tablet *Reorder from [facility] for eRx and Interaction Alerts*Taking Lisinopril 20 MG Oral Tablet ORAL , Notes to Pharmacist: lisinopril 20 MG Oral TabletOriginal Medicationlisinopril 20 MG Oral Tablet *Reorder from [facility] for eRx and Interaction Alerts*Taking Naproxen 250 MG Oral Tablet ORAL , Notes to Pharmacist: naproxen 250 MG Oral TabletOriginal Medicationnaproxen 250 MG Oral Tablet *Reorder from [facility] for eRx and Interaction Alerts*Taking Lisinopril 10 MG Oral Tablet ORAL , Notes to Pharmacist: lisinopril 10 MG Oral TabletOriginal Medicationlisinopril 10 MG Oral Tablet *Reorder from [facility] for eRx and Interaction Alerts*Taking Gabapentin 100 MG Oral Capsule ORAL , Notes to Pharmacist: gabapentin 100 MG Oral CapsuleOriginal Medicationgabapentin 100 MG Oral Capsule *Reorder from [facility] for eRx and Interaction Alerts*Taking aspirin 81 MG Delayed Release Oral Tablet ORAL , Notes to Pharmacist: aspirin 81 MG Delayed Release Oral TabletOriginal Medicationaspirin 81 MG Delayed Release Oral Tablet *Reorder from [facility] for eRx and Interaction Alerts*Taking atorvastatin 10 MG Oral Tablet [Lipitor] ORAL , Notes to Pharmacist: atorvastatin 10 MG Oral Tablet [Lipitor]Original Medicationatorvastatin 10 MG Oral Tablet [Lipitor] *Reorder from [facility] for eRx and Interaction Alerts*Taking fexofenadine hydrochloride 60 MG Oral Tablet [Renate] ORAL , Notes to Pharmacist: fexofenadine hydrochloride 60 MG Oral Tablet [Renate]Original Medicationfexofenadine hydrochloride 60 MG Oral Tablet [Renate] *Reorder from [facility] for eRx and Interaction Alerts*Taking gabapentin 300 MG Oral Capsule [Neurontin] ORAL , Notes to Pharmacist: gabapentin 300 MG Oral Capsule [Neurontin]Original Medicationgabapentin 300 MG Oral Capsule [Neurontin] *[facility]*Taking urea 390 MG/ML Topical Cream CUTANEOUS , Notes to Pharmacist: urea 390 MG/ML Topical CreamOriginal Medicationurea 390 MG/ML Topical Cream *Reorder from [facility] for eRx and Interaction Alerts*Medication List reviewed and reconciled with the patient Objective: * Vitals: * Examination: C onstitutional: Constitutional T he patient is awake, alert, well developed, well groomed and well nourished. D ermatologic: Skin findings: S kin is thin, atrophic and lacking pedal hair. Nail pathology: N ails 1, 2, 3, 4, and 5 bilateral are elongated, thick, discolored, and dystrophic with subungual debris. They are painful to palpation. ? V ascular: Dorsalis pedis pulse: 1 /4 b ilateral. Posterior tibial pulse: 0 /4 b ilateral. Capillary refill: g reater than 3 seconds. Edema: N o edema, bilateral. N eurologic: Gross sensation G ross sensation is intact to light touch.? M usculoskeletal: Muscle Strength M uscle strength is 5/5 in regards to dorsiflexion, plantarflexion, inversion, and eversion in bilateral lower extremities. ? Assessment: * Assessment: 1. T inea unguium - B35.1 (Primary) 2 . P ain in right toe(s) - M79.674? 3. P ain in left toe(s) - M79.675 4 . A therosclerosis of [place] arteries of extremities with intermittent claudication, bilateral legs - I70.213 Plan: * Treatment: * Procedure Codes: * Follow Up: 1 0-12 Weeks (Reason: At Risk Foot care, sooner if problems arise) * Billing Information: * Visit Code: 12659 Office Visit, Est Pt., Level 3. * Procedure Codes: * IFIED MASTER LOCKSMITH Sign off status: Completed true * Provider: Alea Biswas DPM Date: 0 04/19/2024 Generated for Niko Tong/Dexter on: 0 05/18/2024 01:16 AM CERTIFIED MASTER LOCKSMITH History and Physical Notes * HPI (History of Present Illness) Category Sub-Category Detail Notes Category Not es HPI General care Patient presents to the office for at risk foot care. Patient states that their nails are thickened, elongated and painful. Patient states that it is aggravated by shoe gear. Onset is gradual. Patient denies being diabetic., Patient denies taking prescription blood thinners but does take a daily aspirin., Date last seen by Dr. Culp was 02/2024., Initials mca sample Examination Category Sub-Category Detail Notes Category Not es Dermatologic Skin findings: Skin is thin, at rophic and lacking pedal hair Nail pathology: Nails 1, 2, 3, 4, an d 5 bilateral are elongated, thick, discolored, and dystrophic with subungual debris. They are painful to palpation Neurologic Gross sensation Gross sensation is intact to light touch Vascular Dorsalis pedis pulse: 1/4 bilateral Edema: No edema, bilateral Capillary refill: greater than 3 secon ds Posterior tibial pulse: 0/4 bilateral Musculoskeletal Muscle Strength Muscle strength is 5/5 in regards to dorsiflexion, plantarflexion, inversion, and eversion in bilateral lower extremities Constitutional Constitutional The patient is a wake, alert, well developed, well groomed and well nourished
--- OUTSIDE RECORDS SUMMARY | 2024-05-18 01:16 | XMS_ITS | Clinical Summary ---
Author Organization [facility] [address] Address [address] [place] [address] Care Team Providers Care Applications Support Lead Name Role Phone Huber Culp MD Primary Care Provider Allergies No known active allergies Medications loratadine [...] insu fficiency 06/16/2021 HTN (hypertension), benign 03/25/2020 Encounters Date Type Department Care Team Description 03/25/2024 11:39 AM CASHIER OR CHECKER STOCK CLERK - 03/25/2024 11:59 PM CASHIER OR CHECKER STOCK CLERK Hospital Encounter [facility] at [address] [address] Aneurysm of ascending aorta without rupture (HCC) Discharge Disposition: Discharge to home or self care 03/15/2024 10:00 AM CASHIER OR CHECKER STOCK CLERK Ancillary Procedure [facility] [address] [place] [address] [place] [phone] HTN (hypertension), benign; Mitral valve insufficiency and aortic valve insufficiency 03/14/2024 Telephone [facility] [address] [place] [phone] Jair Barney MD Scheduling Testing/Treatment 03/11/2024 3:00 PM CASHIER OR CHECKER STOCK CLERK Office Visit [address] [phone] Jair Barney MD HTN (hypertension), benign (Primary Dx); Mitral valve insufficiency and aortic valve insufficiency 03/11/2024 3:00 PM CASHIER OR CHECKER STOCK CLERK Ancillary Procedure [address] [place] [phone] HTN (hypertension), benign; Aneurysm of ascending aorta without rupture (HCC); Mitral valve insufficiency and aortic valve insufficiency 03/08/2024 Orders Only [facility] Scanning, Provider from Last 3 Months Social History Tobacco Use Types Packs/Day Years Used Date Smoking Tobacco: Never Smokeless Tobacco: Never Tobacco Cessation:Counseling Given: Not Answered Sex and Gender Information Value Date Recorded Sex Assigned at Not on file Legal Sex Male 1:55 AM CASHIER OR CHECKER STOCK CLERK Gender Identity Not on file Sexual Orientation Not on file Obstetrics History Last Filed Vital Signs Vital Sign Reading Time Taken Comments Blood Pressure 119/67 03/11/2024 3:19 PM CASHIER OR CHECKER STOCK CLERK Pulse 79 03/11/2024 3:19 PM CASHIER OR CHECKER STOCK CLERK Temperature 36.4 C (97.6 F) 03/11/2024 3:19 PM CASHIER OR CHECKER STOCK CLERK Respiratory Rate - - Oxygen Saturation 97% 03/11/2024 3:19 PM CASHIER OR CHECKER STOCK CLERK Inhaled Oxygen Concentration - - Weight 120.2 kg (265 lb) 03/11/2024 3:19 PM CASHIER OR CHECKER STOCK CLERK Height 182.9 cm (6') 03/11/2024 3:19 PM CASHIER OR CHECKER STOCK CLERK Body Mass Index 35.94 03/11/2024 3:19 PM CASHIER OR CHECKER STOCK CLERK Plan of Treatment Health Maintenance Due Date Last Done Comments Colon Cancer Screening-Colonoscopy 1950 Depression Screening 1950 Fall Risk Assessment 1950 Hepatitis C Screening 1950 Hepatitis B Screening 11/15/1969 Well Visit 65+ 11/15/2016 Influenza Vaccine (#1) 2023 , 06/08/2019, 12/24/2017, Additional history exists DTaP/Tdap/Td Vaccine (2 - Td or Tdap) 09/17/2032 09/17/2022, 12/08/2018 Pneumococcal vaccine 65+ Completed 021, 12/24/2017, 12/24/2017 Zoster Vaccine Completed 08/29/2020, 01/29, 03/31/2013 Procedures Procedure Name Priority Date/Time Associated Diagnosis Comments CTA CHEST W CONTRAST Schedule Routine, Read Routine (OP Routine) 03/25/2024 12:06 PM CASHIER OR CHECKER STOCK CLERK Aneurysm of ascending aorta without rupture (HCC) POCT CREATININE - DEVICE Routine 03/25/2024 11:54 AM CASHIER OR CHECKER STOCK CLERK NM MPI SPECT (REST AND/OR STRESS) MULTIPLE STUDIES Schedule Routine, Read Routine (OP Routine) 03/15/2024 12:07 PM CASHIER OR CHECKER STOCK CLERK HTN (hypertension), benign Mitral valve insufficiency and aortic valve insufficiency TRANSTHORACIC ECHO (TTE) COMPLETE W DOPPLER/CF W CONTRAST Routine 03/11/2024 3:29 PM CASHIER OR CHECKER STOCK CLERK HTN (hypertension), benign Aneurysm of ascending aorta without rupture (HCC) Mitral valve insufficiency and aortic valve insufficiency SCAN - LABS 03/08/2024 from Last 3 Months Results * CTA Chest W Contrast (03/25/2024 12:06 PM CASHIER OR CHECKER STOCK CLERK) Anatomical Region Laterality Modality Chest N/A Computed Tomogra phy 03/25/2024 12:3 8 PM CASHIER OR CHECKER STOCK CLERK Impressions 03/25/2024 12:38 PM CASHIER OR CHECKER STOCK CLERK No change in aortic dilatation when compared to the prior study of 10/11/2022. The aorta reaches a maximal dimension of 4.3 x 4.6 cm when measured orthogonal to the long axis. Electronically signed by: Jean Diaz M.D. Narrative 03/25/2024 12:38 PM CASHIER OR CHECKER STOCK CLERK Examination: CT angiogram of the chest with [...] axis. Electronically signed by: Jean Diaz M.D. Jair Barney MD IMG CT PROCEDURES Final Result * POCT creatinine (03/25/2024 11:54 AM CASHIER OR CHECKER STOCK CLERK) Creatinine POC 1.2 0.7 - 1.3 mg/dL Blood 03/25/2024 11:5 4 AM CASHIER OR CHECKER STOCK CLERK 03/25/2024 11:54 AM CASHIER OR CHECKER STOCK CLERK Jair Barney MD LAB POCT ORDERABLES - DEVICE F inal Result [facility] Department [place] [address] * NM MPI SPECT (Rest and/or Stress) Multiple Studies (03/15/2024 12:07 PM CASHIER OR CHECKER STOCK CLERK) Anatomical Region Laterality Modality Body N/A Electrocardiogra phy Narrative 03/15/2024 10:29 PM CASHIER OR CHECKER STOCK CLERK Table formatting from the original result was not included. [facility] [address] [address] Nuclear MPI Pharmaceutical Study Patient Name: Rickey [...] false positive rate. Stress test supervised by Cehlsea Mendoza NP. Images interpreted by Jair Barney MD. us Jair Barney MD [facility] PROCEDURES Final Result * TRANSTHORACIC ECHO (TTE) COMPLETE W DOPPLER/CF W CONTRAST (03/11/2024 3:29 PM CASHIER OR CHECKER STOCK CLERK) LV EF 63 % CARDIOREPORT Anatomical Region Laterality Modality Ultrasound 03/11/2024 3:00 PM CASHIER OR CHECKER STOCK CLERK Narrative 03/11/2024 9:02 PM CASHIER OR CHECKER STOCK CLERK Patient name: Rickey Joshi Date of test: 03/11/2024 Type of test: TTE w/Doppler [facility] #: 0 Date of : 1950 (M) Manager Women: LARRY Monroe RDCS Referring Physician: JAIR BARNEY MD Contrast Agent: 0.30 ml Definity Administered, (1.20 ml wasted). Contrast Administered by: LARRY Monroe RDCS Supervised/Interpreted by: Jair Barney MD Diagnosis: Location: [facility] Reason for test: HTN, Aneurysm Aortic MV [...] 2=Hypo 3=Akinetic 4=Dyskin./Aneurysm 0=Not visualized) Parasternal Long [place]:MAS=2 BAS=2 MIL=1 ANITA=1 Parasternal Short [place]:MAS=2 MIS=1 KS=1 MIL=1 MAL=1 MA=1 Apical 4 Chambers:=1 MIS=1 BIS=1 BAL=1 MAL=1 AL=1 AC=1 Apical 2 Chambers:AI=1 KS=1 BI=1 BA=1 MA=1 AA=1 AC=1 LV Global [...] MD By signing this report, the attending slasher runner certifies that he or she has personally supervised and interpreted the echocardiogram and has reviewed and or edited and agrees with the written comments contained within the report. Procedure Note Jair Barney MD - 03/11/2024 Patient name: Rickey Joshi Date of test: 03/11/2024 Type of test: TTE w/Doppler [facility] #: 0 Date of : 1950 (M) Manager Women: LARRY Monroe [facility] Referring Physician: JAIR BARNEY MD Contrast Agent: 0.30 ml Definity Administered, (1.20 ml wasted). Contrast Administered by: LARRY Monroe [facility] Supervised/Interpreted by: Jair Barney MD [facility] Reason for test: HTN, Aneurysm Aortic MV [...] 2=Hypo 3=Akinetic 4=Dyskin./Aneurysm 0=Not visualized) Parasternal Long [place]:MAS=2 BAS=2 MIL=1 ANITA=1 Parasternal Short [place]:MAS=2 MIS=1 KS=1 MIL=1 MAL=1 MA=1 Apical 4 Chambers:=1 MIS=1 BIS=1 BAL=1 MAL=1 AL=1 AC=1 Apical 2 Chambers:AI=1 KS=1 BI=1 BA=1 MA=1 AA=1 AC=1 LV Global [...] LV strain pattern. Confirmed on 03/11/2024 - :02:54 by Jair Barney MD By signing this report, the attending slasher runner certifies that he or she has personally supervised and interpreted the echocardiogram and has reviewed and or edited and agrees with the written comments contained within the report. Jair Barney MD CV ECHO PROCEDURES Final Resul t * SCAN - LABS (03/08/2024) Provider Scanning Final Result from Last 3 Months Insurance [employer] CHO[employer] MEDICARE PPO MEDICARE FOR LIFE FOR LIFE [employer] CHOICE MEDICARE PPO Care Teams Applications Support Lead Relationship Specialty Start Date End Date Huber Culp MD [address] [facility] [address] [place] [address] PCP - General Family Medicine 12/08/17
--- OUTSIDE RECORDS SUMMARY | 2024-05-18 01:16 | XMS_ITS ---
Author Organization [facility] Address [address] [place], [place] [address] Care Team Providers Care Coordinator Volunteer Services Name Role Phone Culp Huber Primary Care Provider VIELKA Burgos Unavailable [phone] REASON FOR VISIT Patient presents for at-risk foot care . The patient has painful toenails that cause difficulty with ambulation and shoegear. The onset is gradual Medications Medication SIG (Take, Route, Frequency, Duration) Notes Start Date End Date Status urea 390 MG/ML Topical Cream CUTANEOUS urea 390 MG/ML Topical CreamOriginal Medicationurea 390 MG/ML Topical Cream *Reorder from [facility] for [facility]Rx and Interaction Alerts* 01/01/2012 Active aspirin 81 MG Delayed Release Oral Tablet ORAL aspirin 81 MG Delayed Release Oral TabletOriginal Medicationaspirin 81 MG Delayed Release Oral Tablet *Reorder from [facility] for [facility]Rx and Interaction Alerts* 09/08/2020 Active atorvastatin 10 MG Oral Tablet [Lipitor] ORAL atorvastatin 10 MG Oral Tablet [Lipitor]Original Medicationatorvastatin 10 MG Oral Tablet [Lipitor] *Reorder from [facility] for [facility]Rx and Interaction Alerts* 01/01/2012 Active fexofenadine hydrochloride 60 MG Oral Tablet [Renate] ORAL fexofenadine hydrochloride 60 MG Oral Tablet [Renate]Original Medicationfexofenadine hydrochloride 60 MG Oral Tablet [Renate] *Reorder from [facility] for [facility]Rx and Interaction Alerts* 01/01/2012 Active gabapentin 300 MG Oral Capsule [Neurontin] ORAL gabapentin 300 MG Oral Capsule [Neurontin]Original Medicationgabapentin 300 MG Oral Capsule [Neurontin] *Reorder from [facility] for eRx and Interaction Alerts* 02/03/2012 Active Lisinopril 20 MG Oral Tablet ORAL lisinopril 20 MG Oral TabletOriginal Medicationlisinopril 20 MG Oral Tablet *Reorder from [facility] for eRx and Interaction Alerts* 08/17/2014 Active Naproxen 250 MG Oral Tablet ORAL naproxen 250 MG Oral TabletOriginal Medicationnaproxen 250 MG Oral Tablet *Reorder from [facility] for eRx and Interaction Alerts* 01/01/2012 Active Atenolol 100 MG Oral Tablet ORAL atenolol 100 MG Oral TabletOriginal Medicationatenolol 100 MG Oral Tablet *Reorder from [facility] for eRx and Interaction Alerts* 01/01/2012 Active Lisinopril 10 MG Oral Tablet ORAL lisinopril 10 MG Oral TabletOriginal Medicationlisinopril 10 MG Oral Tablet *Reorder from [facility] for eRx and Interaction Alerts* 01/01/2012 Active Gabapentin 100 MG Oral Capsule ORAL gabapentin 100 MG Oral CapsuleOriginal Medicationgabapentin 100 MG Oral Capsule *Reorder from [facility] for eRx and Interaction Alerts* 08/17/2014 Active Encounters Encounter Location Date Provider Diagnosis [facility] [address] [place] [id number] 02/09/2024 VIELKA ERLINK Tinea unguium B35.1 ; Pain in right toe(s) M79.674 ; Pain in left toe(s) M79.675 and Atherosclerosis of nikolai arteries of extremities with intermittent claudication, bilateral legs I70.213 Assessments Encounter Date Diagnosis (ICD Code) Assessment Notes Treatment Notes Treatment Clinical Notes Section Notes 02/09/2024 Tinea unguium (ICD-10 - B35.1) FUNGAL [...] Pain in right toe(s) (ICD-10 - M79.674) 02/09/2024 Pain in left toe(s) (ICD-10 - M79.675) 02/09/2024 Atherosclerosis of nikolai arteries of extremities with intermittent claudication, bilateral [...] Name:VIELKA BISWAS, 01:00:00 PM, [address], [address], [id number], Progress Notes * RODERICK STEINER SDOB: [birth year] (73 yo M)Acc No.[id number]:02/09/2024 Patient: RODERICK ROSADO Provider: Alea Biswas DPM :1950 A ge:73 Y S ex:Male Date:02/09/2024 Address:[address] [place], [place] [id number] Pcp:Huber Culp Subjective: * Chief Complaints: * 1 . Patient presents for at-risk foot care . The patient has painful toenails that cause difficulty with ambulation and shoegear. The onset is gradual. * HPI: H PI: General care P atient presents to the office for at risk foot care. Patient states that their nails are thickened, elongated and painful. Patient states that it is aggravated by shoe gear. Onset is gradual. Patient denies being diabetic., Patient denies taking prescription blood thinners but does take a daily aspirin., Date last seen by Dr. Culp was January 2024., Initials LB. sample. * ROS: G eneral / Constitutional: [...] Numbness, Burning/Tingling. ? * Medical History: * Family History: F ather: PRN - Father: :: Cancer,,known absent , :: Hypertension,,known absent . M other: PRN - Mother: :: Cancer,,known absent . S ister: SIB - Sister: . * Social History: M igrated Social History: M igrated Social History: History of tobacco use : , Smoking Status : Never used tobacco. * Medications: T aking Atenolol 100 MG Oral Tablet ORAL , Notes to Pharmacist: atenolol 100 MG Oral TabletOriginal Medicationatenolol 100 MG Oral Tablet *Reorder from [facility] for eRx and Interaction Alerts*, Taking Lisinopril 20 MG Oral Tablet ORAL , Notes to Pharmacist: lisinopril 20 MG Oral TabletOriginal Medicationlisinopril 20 MG Oral Tablet *Reorder from [facility] for eRx and Interaction Alerts*, Taking Naproxen 250 MG Oral Tablet ORAL , Notes to Pharmacist: naproxen 250 MG Oral TabletOriginal Medicationnaproxen 250 MG Oral Tablet *Reorder from [facility] for eRx and Interaction Alerts*, Taking Lisinopril 10 MG Oral Tablet ORAL , Notes to Pharmacist: lisinopril 10 MG Oral TabletOriginal Medicationlisinopril 10 MG Oral Tablet *Reorder from [facility] for eRx and Interaction Alerts*, Taking Gabapentin 100 MG Oral Capsule ORAL , Notes to Pharmacist: gabapentin 100 MG Oral CapsuleOriginal Medicationgabapentin 100 MG Oral Capsule *Reorder from [facility] for eRx and Interaction Alerts*, Taking aspirin 81 MG Delayed Release Oral Tablet ORAL , Notes to Pharmacist: aspirin 81 MG Delayed Release Oral TabletOriginal Medicationaspirin 81 MG Delayed Release Oral Tablet *Reorder from [facility] for eRx and Interaction Alerts*, Taking atorvastatin 10 MG Oral Tablet [Lipitor] ORAL , Notes to Pharmacist: atorvastatin 10 MG Oral Tablet [Lipitor]Original Medicationatorvastatin 10 MG Oral Tablet [Lipitor] *Reorder from [facility] for eRx and Interaction Alerts*, Taking fexofenadine hydrochloride 60 MG Oral Tablet [Renate] ORAL , Notes to Pharmacist: fexofenadine hydrochloride 60 MG Oral Tablet [Renate]Original Medicationfexofenadine hydrochloride 60 MG Oral Tablet [Renate] *Reorder from [facility] for eRx and Interaction Alerts*, Taking gabapentin 300 MG Oral Capsule [Neurontin] ORAL , Notes to Pharmacist: gabapentin 300 MG Oral Capsule [Neurontin]Original Medicationgabapentin 300 MG Oral Capsule [Neurontin] *Reorder from [facility] for eRx and Interaction Alerts*, Taking urea 390 MG/ML Topical Cream CUTANEOUS , Notes to Pharmacist: urea 390 MG/ML Topical CreamOriginal Medicationurea 390 MG/ML Topical Cream *Reorder from [facility] for eRx and Interaction Alerts*, Medication List reviewed and reconciled with the patient [...] - M79.675 4 . A therosclerosis of nikolai arteries of extremities with intermittent claudication, bilateral legs - I70.213 Plan: * Treatment: * Follow Up: 1 0-12 Weeks (Reason: At Risk Foot care, sooner if problems arise) * Billing Information: * Visit Code: 37644 Office Visit, Est Pt., Level 3. * Procedure Codes: * Electronic signature of VIELKA BISWAS DPM on 05/18/2024 at 01:15 AM SALT MAKER Sign off status: Pending * Provider: Alea Biswas DPM Date: 1 04/10/2023 Generated for Niko linares/Vishnu/Dexter on: 0 05/18/2024 01:15 AM SALT MAKER History and Physical Notes * HPI (History [...] Date last seen by Dr. Culp was January 2024., Initials LB sample Examination Category Sub-Category Detail Notes Category [...]
[2024-05-18] MEDS: TRANEXAMIC ACID 1,000MG/ISO100 1,000 MG/100 ML BAG 200 MG IVPB (06:40)
[2024-05-18] MEDS: ACETAMINOPHEN 500 MG TABLET 1000 MG PO (06:40)
[2024-05-18] MEDS: LACTATED RINGERS 1,000 ML 30 ML IV CONT ×2 (06:40→09:36)
--- NOTE | 2024-05-18 07:23 | WPDHPUPDATE1 ---
History and Physical Update Update Date/Time: 05/18/24 07:23 History and Physical has been reviewed, including an updated exam of the patient. There are NO changes in the patient's condition. Risks, benefits, and alternatives have been discussed and questions answered. Patient agrees to proceed with procedure.
[2024-05-18] MEDS: ceFAZolin 2 GM/D5W 50 ML 2 GM/50 ML BAG IVPB (07:29)
--- NOTE | 2024-05-18 07:45 | WPDANESPNB ---
Anes - Peripheral Nerve Block Date/Time: 05/18/24 07:45 I have discussed with the patient/family/POA the placement of a peripheral nerve block for post-operative pain management, including associated risks, benefits, complications, and side effects. Alternative methods of post-operative analgesia were detailed. Questions were solicited and answers provided to the satisfaction of the patient/family/POA. Time-Out: A pre-procedural Time-Out was completed immediately before starting the procedure and confirmed: Patient Identification, Site, Procedure, Patient Position and the Availability of Requisite Equipment. Clinical Indications: Acute post-operative pain management requested by the operative surgeon. Nerve Block Insertion Note Anes-nerve block: adductor canal right Patient position: supine Skin prep: chlorhexidine Needle: 22 gauge, stimulating, insulated echogenic needle. Needle length: 80 mm Technique: ultrasound Injectate: bupivacaine 0.5% with epi 5 mcg/ml (30cc - no epi) Observations: tolerated well Complications: none Procedure start time:: 720 Procedure end time:: 723
[2024-05-18] MEDS: SODIUM CHLORIDE 0.9% IV 37.7 ML, MORPHINE SULFATE INJ (*CRX) 2 MG, ROPivacaine HCL 1% 2... INFILTRATE (08:05)
[2024-05-18] MEDS: GENTAMICIN BONE CEMENT REFOBACIN 1 EACH TOPICAL (08:58)
[2024-05-18] MEDS: TRANEXAMIC ACID 1,000 MG/10 ML AMPUL 1000 MG IV PUSH (09:10)
[2024-05-18] MEDS: fentaNYL CITRATE INJ (*CRX) 100 MCG/2 ML VIAL 25 MCG IV PUSH (10:07)
--- NOTE | 2024-05-18 10:07 | W.PM.PROC2 ---
Procedure Note - Detailed Date of Procedure 05/18/24 Pre-op Diagnosis Right knee degenerative arthritis. Post-op Diagnosis Same Procedure Performed Total knee arthroplasty, right Surgeon Tariq Cabrera MD Anesthesia General and Regional (Subsartorial block.) Findings Anatomic fit custom knee prosthesis. Advanced degenerative arthritis. Significant spurs. Very large stature. Excellent bone quality. Partial PCL release. No medial releases were required. Description of Procedure Preoperative antibiotics were given. The limb was prepped and draped in the usual sterile fashion with a well-padded tourniquet high on the thigh. The limb was exsanguinated and the tourniquet inflated to 300 mmHg. A longitudinal incision was created just medial to the patella. A trivector approach to the knee was performed. Arthrotomy was taken down through the joint capsule. No significant releases were initially taken. The femur was exposed and the F1 jig was applied. The coring tool was used to remove the cartilage for the F2 jig to sit flush with the bone. The jig was pinned and the distal cut carefully taken. Caliper measurements confirmed appropriate bony resections according to the preoperative templated plan. The F4 cutting jig for the femur was applied, at the standard rotation. The AP and anterior chamfer cuts were taken. The F5 jig was applied and the posterior chamfer cuts were taken. The tibia was prepared using the T1 jig, after removing cartilage for the jig contact points. Proper alignment was checked with the alignment porfirio. The tibia was cut using the T1u guide. Gap balancing was performed. Gap measurements were taken and the knee was trialed. Excellent alignment and soft tissue balancing was confirmed. The posterior cruciate ligament was recessed along the proximal tibia. The patella was cut for resurfacing. Three lug holes were drilled. Meniscal remnants were removed. The trial components were assembled. Excellent range of motion and proper soft tissue balancing were confirmed throughout the full range of motion. Patellar tracking was excellent. The knee was copiously irrigated periodically throughout the procedure. The real implants were cemented into position. Excess cement was carefully removed. The wound was closed in layers with interrupted #1 Vicryl suture, 2-0 strata fix suture, 0 strata fix suture, 2-0 strata fix suture. Steri-Strips placed on the skin with the knee flexed. Sterile bulky dressing applied. The patient was brought to the recovery room in stable condition. There were no complications. Implants Conformis Custom total knee arthroplasty. Cemented. Cruciate retaining. 6A insert. 41 mm oval patella. Estimated Blood Loss 100 Drains No Complications No immediate complications Condition Stable Disposition PACU [facility] Billing Surgery - Charge Forward: Surgery Billing
[2024-05-18] MEDS: ONDANSETRON INJ 4 MG/2 ML VIAL IV PUSH (11:37)
--- NOTE | 2024-05-18 11:53 | SUR.PHASEII ---
1150: PT/OT worked with patient. patient dressed. family in room. ready for dc.
== END 2024-05-18 12:30 | disposition home or self-care (01) ==
PROVIDERS: PCP Family Medicine; Visit Provider Orthopaedic Surgery
PROC: (CPT 27447; principal; 2024-05-18 07:30)
DX: M17.11 Unilateral primary osteoarthritis, right knee (principal); G89.18 Other acute postprocedural pain; I12.9 Hypertensive chronic kidney disease with stage 1 through stage 4 chronic kidney disease, or unspecified chronic kidney disease; N18.9 Chronic kidney disease, unspecified; E78.2 Mixed hyperlipidemia; G47.00 Insomnia, unspecified; G47.33 Obstructive sleep apnea (adult) (pediatric); E88.810 Metabolic syndrome; G89.29 Other chronic pain; M54.31 Sciatica, right side; E66.9 Obesity, unspecified; Z68.35 Body mass index [BMI] 35.0-35.9, adult; Z79.82 Long term (current) use of aspirin; Z79.85 Long-term (current) use of injectable non-insulin antidiabetic drugs; Z99.89 Dependence on other enabling machines and devices; Z98.890 Other specified postprocedural states; Z86.0100 Personal history of colon polyps, unspecified; Z87.19 Personal history of other diseases of the digestive system; Z86.79 Personal history of other diseases of the circulatory system; Z80.9 Family history of malignant neoplasm, unspecified
CPT/HCPCS: 64447; 27447; 36415; 73560; 86850; 86900; 86901; 97110; 97116; 97161; 97165; 97530; A9270; C1713; J0171; J0690; J1100; J1171; J1885; J2003; J2250; J2270; J2405; J2704; J2795; J3010; J7120

== ENCOUNTER 2024-06-09 09:43 | Outpatient (CLI) | payer MEDICARE, OTHER, SELFPAY ==
--- NOTE | ~2024-06-09 | XR_ITS ---
EXAMINATION: XR knee RT 3V DATE: 06/09/2024 10:06 INDICATION: Presence of artificial right knee joint. TECHNIQUE: 3 views of right knee were obtained. COMPARISON: Right knee radiographs 11/11/2023 FINDINGS: There is a total right knee arthroplasty with patellar resurfacing in near-anatomic alignme nt. No fracture. No periprosthetic lucency to suggest loosening or infection. No knee joint effusion. IMPRESSION: 1. Total right knee arthroplasty in near-anatomic alignment. Reviewed, dictated and finalized at location B.
--- OUTSIDE RECORDS SUMMARY | 2024-06-09 10:34 | XMS_ITS | Encounter Summary ---
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
--- OUTSIDE RECORDS SUMMARY | 2024-06-09 10:34 | XMS_ITS | Patient Health Record ---
Author Organization [facility] Address [address] [place], [place] [id number] Care Team Providers Care Employee Benefits Director Name Role Phone Robbi Huber Primary Care Provider VIELKA Burgos Unavailable [phone] Allergies No Known Allergies Reason For Referral No Information Medications Medication SIG (Take, Route, Frequency, Duration) Notes Start Date End Date Status urea 390 MG/ML Topical Cream CUTANEOUS urea 390 MG/ML Topical CreamOriginal Medicationurea 390 MG/ML Topical Cream *Reorder from [facility] for eRx and Interaction Alerts* 01/01/2012 Active Atenolol 100 MG Oral Tablet ORAL atenolol 100 MG Oral TabletOriginal Medicationatenolol 100 MG Oral Tablet *Reorder from [facility] for eRx and Interaction Alerts* 01/01/2012 Active Naproxen 250 MG Oral Tablet ORAL naproxen 250 MG Oral TabletOriginal Medicationnaproxen 250 MG Oral Tablet *Reorder from [facility] for eRx and Interaction Alerts* 01/01/2012 Active Lisinopril 20 MG Oral Tablet ORAL lisinopril 20 MG Oral TabletOriginal Medicationlisinopril 20 MG Oral Tablet *Reorder from [facility] for eRx and Interaction Alerts* 08/17/2014 Active Gabapentin 100 MG Oral Capsule ORAL gabapentin 100 MG Oral CapsuleOriginal Medicationgabapentin 100 MG Oral Capsule *Reorder from [facility] for eRx and Interaction Alerts* 08/17/2014 Active Lisinopril 10 MG Oral Tablet ORAL lisinopril 10 MG Oral TabletOriginal Medicationlisinopril 10 MG Oral Tablet *Reorder from [facility] for eRx and Interaction Alerts* 01/01/2012 Active atorvastatin 10 MG Oral Tablet [Lipitor] ORAL atorvastatin 10 MG Oral Tablet [Lipitor]Original Medicationatorvastatin 10 MG Oral Tablet [Lipitor] *Reorder from [facility] for eRx and Interaction Alerts* 01/01/2012 Active aspirin 81 MG Delayed Release Oral Tablet ORAL aspirin 81 MG Delayed Release Oral TabletOriginal Medicationaspirin 81 MG Delayed Release Oral Tablet *Reorder from [facility] for eRx and Interaction Alerts* 09/08/2020 Active gabapentin 300 MG Oral Capsule [Neurontin] ORAL gabapentin 300 MG Oral Capsule [Neurontin]Original Medicationgabapentin 300 MG Oral Capsule [Neurontin] *Reorder from [facility] for eRx and Interaction Alerts* 02/03/2012 Active fexofenadine hydrochloride 60 MG Oral Tablet [Renate] ORAL fexofenadine hydrochloride 60 MG Oral Tablet [Renate]Original Medicationfexofenadine hydrochloride 60 MG Oral Tablet [Renate] *Reorder from [facility] for eRx and Interaction Alerts* 01/01/2012 Active Immunizations Vaccine Route Administration Date Status Comme nts Influenza, seasonal, injecta ble, preservative free, 3 yrs and above Unknown 12/25/2022 Administered Vital Signs Height-cm 182.88 cm 09/29/2023 Weight-kg 136.08 kg 09/29/2023 Height 72.00 in 09/29/2023 Weight 300 lbs 09/29/2023 BMI 40.68 kg/m2 09/29/2023 Encounters Encounter Location Date Provider Diagnosis [facility] [address] [place] [id number] 02/09/2024 VIELKA SNOOK Tinea unguium B35.1 ; Pain in right toe(s) M79.674 ; Pain in left toe(s) M79.675 and Atherosclerosis of [place] arteries of extremities with intermittent claudication, bilateral legs I70.213 [facility] [address] [place], [place] [id number] 07/07/2023 VIELKA SNOOK Tinea unguium B35.1 ; Pain in right foot M79.671 ; Pain in left foot M79.672 ; Atherosclerosis of [place] arteries of extremities with intermittent claudication, bilateral legs I70.213 and Acquired keratosis [keratoderma] palmaris et plantaris L85.1 [facility] [address] [place] [id number] 09/29/2023 VIELKA SNOOK Tinea unguium B35.1 ; Pain in right foot M79.671 ; Pain in left foot M79.672 ; Atherosclerosis of [place] arteries of extremities with intermittent claudication, bilateral legs I70.213 and Acquired keratosis [keratoderma] palmaris et plantaris L85.1 [facility] [address] [place] [id number] 12/08/2023 VIELKA SNOOK Tinea unguium B35.1 ; Acquired keratosis [keratoderma] palmaris et plantaris L85.1 ; Atherosclerosis of [place] arteries of extremities with intermittent claudication, bilateral legs I70.213 ; Pain in right foot M79.671 and Pain in left foot M79.672 [facility] [address] [place] [id number] 04/19/2024 VIELKA SNOOK Tinea unguium B35.1 ; Pain in right toe(s) M79.674 ; Pain in left toe(s) M79.675 and Atherosclerosis of [place] arteries of extremities with intermittent claudication, bilateral [...] toe(s) (ICD-10 - M79.675) 12/08/2023 Atherosclerosis of [place] arteries of extremities with intermittent claudication, bilateral legs (ICD-10 - I70.213) 09/29/2023 Pain in left foot (ICD-10 - M79.672) 07/07/2023 Pain in left foot (ICD-10 - M79.672) 07/07/2023 Atherosclerosis of [place] arteries of extremities with intermittent claudication, bilateral legs (ICD-10 - I70.213) 09/29/2023 Atherosclerosis of [place] arteries of extremities with intermittent claudication, bilateral legs (ICD-10 - I70.213) 02/09/2024 Atherosclerosis of [place] arteries of extremities with intermittent claudication, bilateral legs (ICD-10 - I70.213) 12/08/2023 Pain in right foot (ICD-10 - M79.671) 04/19/2024 Atherosclerosis of [place] arteries of extremities with intermittent claudication, bilateral [...] 01:00:00 PM, [address] [place], [place], [phone], Insurance Providers Payer Name Payer Address Payer Phone Subscriber Number Group Number Insured Name Patient Relationship to Insured Coverage Start Date Coverage End Date [facility] [address] [place], [place] [id number] [phone] [id number] RODERICK GUERRA Self - patient is the insured [employer] [address] [place], [place] [id number] RODERICK GUERRA Self - patient is the insured
--- OUTSIDE RECORDS SUMMARY | 2024-06-09 10:34 | XMS_ITS ---
Author Organization [facility] Address [address] [place], [place] [phone] Care Team Providers Care Practice Assistant Name Role Phone Huber Culp Primary Care Provider Unavailabl VIELKA Leonardo Unavailable [phone] REASON FOR VISIT *General care Encounters Encounter Location Date Provider Diagnosis [facility] [address] [place], [place] [phone] 04/19/2024 VIELKA BISWAS Plan Of Treatment Next Appt Details Provider Name:VIELKA BISWAS, 01:00:00 PM, [address], [place], [place], [phone], Progress Notes * RODERICK STEINER SDOB: [birth year] (73 yo M)Acc No.[id number]:04/19/2024 Patient: RODERICK ROSADO Provider: Alea Biswas DPM :1950 A ge:73 Y S ex:Male Date:04/19/2024 Address:[facility] [address] [place], [place] Pcp:Huber Culp Subjective: * Chief Complaints: * 1 . *General care. * Medical History: Objective: * Vitals: Assessment: Plan: * Treatment: * Billing Information: * Visit Code: * Procedure Codes: * Electronic signature of VIELKA BISWAS DPM on 06/09/2024 at 10:34 AM CDT Sign off status: Pending * Provider: Alea Biswas DPM Date: 0 04/19/2024 Generated for Niko Tong/Dexter on: 0 06/09/2024 10:34 AM CDT
--- OUTSIDE RECORDS SUMMARY | 2024-06-09 10:34 | XMS_ITS ---
Author Organization [facility] Address [address] [place], [place] [id number] Care Team Providers Care Termination Clerk Name Role Phone Culp Huber Primary Care Provider VIELKA Burgos Unavailable [phone] REASON FOR VISIT Patient presents for at-risk foot care . The patient has painful toenails that cause difficulty with ambulation and shoegear. The onset is gradual Medications Medication SIG (Take, Route, Frequency, Duration) Notes Start Date End Date Status Naproxen 250 MG Oral Tablet ORAL naproxen 250 MG Oral TabletOriginal Medicationnaproxen 250 MG Oral Tablet *Reorder from [facility] for eRx and Interaction Alerts* 01/01/2012 Active Lisinopril 20 MG Oral Tablet ORAL lisinopril 20 MG Oral TabletOriginal Medicationlisinopril 20 MG Oral Tablet *Reorder from [facility] for eRx and Interaction Alerts* 08/17/2014 Active Gabapentin 100 MG Oral Capsule ORAL gabapentin 100 MG Oral CapsuleOriginal Medicationgabapentin 100 MG Oral Capsule *Reorder from [facility] for eRx and Interaction Alerts* 08/17/2014 Active Lisinopril 10 MG Oral Tablet ORAL lisinopril 10 MG Oral TabletOriginal Medicationlisinopril 10 MG Oral Tablet *Reorder from [facility] for eRx and Interaction Alerts* 01/01/2012 Active aspirin 81 MG Delayed Release Oral Tablet ORAL aspirin 81 MG Delayed Release Oral TabletOriginal Medicationaspirin 81 MG Delayed Release Oral Tablet *Reorder from [facility] for eRx and Interaction Alerts* 09/08/2020 Active urea 390 MG/ML Topical Cream CUTANEOUS urea 390 MG/ML Topical CreamOriginal Medicationurea 390 MG/ML Topical Cream *Reorder from [facility] for eRx and Interaction Alerts* 01/01/2012 Active Atenolol 100 MG Oral Tablet ORAL atenolol 100 MG Oral TabletOriginal Medicationatenolol 100 MG Oral Tablet *Reorder from [facility] for eRx and Interaction Alerts* 01/01/2012 Active atorvastatin 10 MG Oral Tablet [Lipitor] ORAL atorvastatin 10 MG Oral Tablet [Lipitor]Original Medicationatorvastatin 10 MG Oral Tablet [Lipitor] *Reorder from [facility] for eRx and Interaction Alerts* 01/01/2012 Active gabapentin 300 MG Oral Capsule [Neurontin] ORAL gabapentin 300 MG Oral Capsule [Neurontin]Original Medicationgabapentin 300 MG Oral Capsule [Neurontin] *Reorder from [facility] for eRx and Interaction Alerts* 02/03/2012 Active fexofenadine hydrochloride 60 MG Oral Tablet [Renate] ORAL fexofenadine hydrochloride 60 MG Oral Tablet [Renate]Original Medicationfexofenadine hydrochloride 60 MG Oral Tablet [Renate] *Reorder from [facility] for eRx and Interaction Alerts* 01/01/2012 Active Encounters Encounter Location Date Provider Diagnosis [facility] [address] [id number] 04/19/2024 VIELKA SNOOK Tinea unguium B35.1 ; Pain in right toe(s) M79.674 ; Pain in left toe(s) M79.675 and Atherosclerosis of [place] arteries of extremities with intermittent claudication, bilateral [...] toe(s) (ICD-10 - M79.675) 04/19/2024 Atherosclerosis of [place] and [place] arteries of extremities with intermittent claudication, bilateral [...] Name:VIELKA BISWAS, 01:00:00 PM, [address], [address], [id number], Progress Notes * RODERICK STEINER SDOB: [birth year] (73 yo M)Acc No.[id number]:04/19/2024 Patient: RODERICK ROSADO Provider: Alea Biswas DPM :1950 A ge:73 Y S ex:Male Date:04/19/2024 Address:[address] [place], [place] [id number] Pcp:Huber Culp Subjective: * Chief Complaints: * [...] Medicationatenolol 100 MG Oral Tablet *Reorder from [facility] for eRx and Interaction Alerts*Lisinopril 20 MG Oral Tablet ORAL , Notes to Pharmacist: lisinopril 20 MG Oral TabletOriginal Medicationlisinopril 20 MG Oral Tablet *Reorder from [facility] for eRx and Interaction Alerts*Naproxen 250 MG Oral Tablet ORAL , Notes to Pharmacist: naproxen 250 MG Oral TabletOriginal Medicationnaproxen 250 MG Oral Tablet *Reorder from [facility] for eRx and Interaction Alerts*Lisinopril 10 MG Oral Tablet ORAL , Notes to Pharmacist: lisinopril 10 MG Oral TabletOriginal Medicationlisinopril 10 MG Oral Tablet *Reorder from [facility] for eRx and Interaction Alerts*Gabapentin 100 MG Oral Capsule ORAL , Notes to Pharmacist: gabapentin 100 MG Oral CapsuleOriginal Medicationgabapentin 100 MG Oral Capsule *Reorder from [facility] for eRx and Interaction Alerts*aspirin 81 MG Delayed Release Oral Tablet ORAL , Notes to Pharmacist: aspirin 81 MG Delayed Release Oral TabletOriginal Medicationaspirin 81 MG Delayed Release Oral Tablet *Reorder from [facility] for eRx and Interaction Alerts*atorvastatin 10 MG Oral Tablet [Lipitor] ORAL , Notes to Pharmacist: atorvastatin 10 MG Oral Tablet [Lipitor]Original Medicationatorvastatin 10 MG Oral Tablet [Lipitor] *Reorder from [facility] for eRx and Interaction Alerts*fexofenadine hydrochloride 60 MG Oral Tablet [Renate] ORAL , Notes to Pharmacist: fexofenadine hydrochloride 60 MG Oral Tablet [Renate]Original Medicationfexofenadine hydrochloride 60 MG Oral Tablet [Renate] *Reorder from [facility] for eRx and Interaction Alerts*gabapentin 300 MG Oral Capsule [Neurontin] ORAL , Notes to Pharmacist: gabapentin 300 MG Oral Capsule [Neurontin]Original Medicationgabapentin 300 MG Oral Capsule [Neurontin] *Reorder from [facility] for eRx and Interaction Alerts*urea 390 MG/ML Topical Cream CUTANEOUS , Notes to Pharmacist: urea 390 MG/ML Topical CreamOriginal Medicationurea 390 MG/ML Topical Cream *Reorder from [facility] for eRx and Interaction Alerts*Medication List reviewed and reconciled with the patientTaking Atenolol 100 MG Oral Tablet ORAL , Notes to Pharmacist: atenolol 100 MG Oral TabletOriginal Medicationatenolol 100 MG Oral Tablet *Reorder from [facility] for eRx and Interaction Alerts*Taking Lisinopril 20 MG Oral Tablet ORAL , Notes to Pharmacist: lisinopril 20 MG Oral TabletOriginal Medicationlisinopril 20 MG Oral Tablet *Reorder from [facility] for eRx and Interaction Alerts*Taking Naproxen 250 MG Oral Tablet ORAL , Notes to Pharmacist: naproxen 250 MG Oral TabletOriginal Medicationnaproxen 250 MG Oral Tablet *Reorder from [facility] for eRx and Interaction Alerts*Taking Lisinopril 10 MG Oral Tablet ORAL , Notes to Pharmacist: lisinopril 10 MG Oral TabletOriginal Medicationlisinopril 10 MG Oral Tablet *Reorder from [facility] for eRx and Interaction Alerts*Taking Gabapentin 100 MG Oral Capsule ORAL , Notes to Pharmacist: gabapentin 100 MG Oral CapsuleOriginal Medicationgabapentin 100 MG Oral Capsule *Reorder from [facility] for eRx and Interaction Alerts*Taking aspirin 81 MG Delayed Release Oral Tablet ORAL , Notes to Pharmacist: aspirin 81 MG Delayed Release Oral TabletOriginal Medicationaspirin 81 MG Delayed Release Oral Tablet *Reorder from [facility] for eRx and Interaction Alerts*Taking atorvastatin 10 MG Oral Tablet [Lipitor] ORAL , Notes to Pharmacist: atorvastatin 10 MG Oral Tablet [Lipitor]Original Medicationatorvastatin 10 MG Oral Tablet [Lipitor] *Reorder from [facility] for eRx and Interaction Alerts*Taking fexofenadine hydrochloride 60 MG Oral Tablet [Renate] ORAL , Notes to Pharmacist: fexofenadine hydrochloride 60 MG Oral Tablet [Renate]Original Medicationfexofenadine hydrochloride 60 MG Oral Tablet [Renate] *Reorder from [facility] for eRx and Interaction Alerts*Taking gabapentin 300 MG Oral Capsule [Neurontin] ORAL , Notes to Pharmacist: gabapentin 300 MG Oral Capsule [Neurontin]Original Medicationgabapentin 300 MG Oral Capsule [Neurontin] *[facility] Interaction Alert[facility]*Taking urea 390 MG/ML Topical Cream CUTANEOUS , Notes to Pharmacist: urea 390 MG/ML Topical CreamOriginal Medicationurea 390 MG/ML Topical Cream *Reorder from [facility] for eRx and Interaction Alerts*Medication List reviewed [...] - M79.675 4 . A therosclerosis of ass[place] and [place] arteries of extremities with intermittent claudication, bilateral legs - I70.213 Plan: * Treatment: * Procedure Codes: * Follow Up: 1 0-12 Weeks (Reason: At Risk Foot care, sooner if problems arise) * Billing Information: * Visit Code: 73557 Office Visit, Est Pt., Level 3. * Procedure Codes: * N WINDING OPERATOR Sign off status: Completed true * Provider: Alea Biswas DPM Date: 0 04/19/2024 Generated for Niko Tong/Dexter on: 0 06/09/2024 10:34 AM CDT History and Physical Notes * HPI (History [...]
--- OUTSIDE RECORDS SUMMARY | 2024-06-09 10:34 | XMS_ITS | Encounter Summary ---
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
--- OUTSIDE RECORDS SUMMARY | 2024-06-09 10:34 | XMS_ITS | Encounter Summary ---
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
--- OUTSIDE RECORDS SUMMARY | 2024-06-09 10:34 | XMS_ITS | Clinical Summary ---
Author Organization [facility] [address] Address [address] [place] [address] Care Team Providers Care Mobile Lab Technician Name Role Phone Huber Culp MD Primary [...] Department Care Team Description 03/25/2024 11:39 AM B[employer] AND CU[employer] CUTTER - 03/25/2024 11:59 PM [employer] Hospital Encounter [facility] Radiology at [address] [address] Aneurysm of ascending aorta without rupture Discharge Disposition: Discharge to home or self care 03/15/2024 10:00 AM [employer] Ancillary Procedure [address] [address] HTN (hypertension), benign; Mitral valve insufficiency and aortic valve insufficiency 03/14/2024 Telephone [facility] [address] [place] [phone] Jair Barney MD Scheduling Testing/Treatment 03/11/2024 3:00 PM [employer] Office Visit [address] [address] Jair Barney MD HTN (hypertension), benign (Primary Dx); Mitral valve insufficiency and aortic valve insufficiency 03/11/2024 3:00 PM [employer] Ancillary Procedure [address] [address] HTN (hypertension), benign; Aneurysm of ascending aorta without rupture; Mitral valve insufficiency and aortic valve insufficiency from Last 3 Months Social History Tobacco Use Types Packs/Day Years Used Date Smoking Tobacco: Never Smokeless Tobacco: Never Tobacco Cessation:Counseling Given: Not Answered Sex and Gender Information Value Date Recorded Sex Assigned at Not on file Legal Sex Male 1:55 AM [employer] AND CU[employer] CUTTER Gender Identity Not on file Sexual Orientation Not on file Obstetrics History Last Filed Vital Signs Vital Sign Reading Time Taken Comments Blood Pressure 119/67 03/11/2024 3:19 PM [employer] Pulse 79 03/11/2024 3:19 PM [employer] C[employer] Temperature 36.4 C (97.6 F) 03/11/2024 3:19 PM [employer]TER Respiratory Rate - - Oxygen Saturation 97% 03/11/2024 3:19 PM [employer] AND CU[employer] C[employer]TER Inhaled Oxygen Concentration - - Weight 120.2 kg (265 lb) 03/11/2024 3:19 PM [employer] C[employer]TER Height 182.9 cm (6') 03/11/2024 3:19 PM [employer] AND CU[employer] C[employer]TER Body Mass Index 35.94 03/11/2024 3:19 PM B[employer] AND CUFF C[employer]TER Plan of Treatment Health Maintenance Due Date [...] Read Routine (OP Routine) 03/25/2024 12:06 PM [employer] C[employer]TER Aneurysm of ascending aorta without rupture POCT CREATININE - DEVICE Routine 03/25/2024 11:54 AM B[employer] AND CUFF CUTTER NM MPI SPECT (REST AND/OR STRESS) MULTIPLE STUDIES Schedule Routine, Read Routine (OP Routine) 03/15/2024 12:07 PM [employer] C[employer]TER HTN (hypertension), benign Mitral valve insufficiency and aortic valve insufficiency TRANSTHORACIC ECHO (TTE) COMPLETE W DOPPLER/CF W CONTRAST Routine 03/11/2024 3:29 PM [employer] HTN (hypertension), benign Aneurysm of ascending aorta without rupture Mitral valve insufficiency and aortic valve insufficiency from Last 3 Months Results * CTA Chest W Contrast (03/25/2024 12:06 PM B[employer] AND CU[employer] C[employer]TER) Anatomical Region Laterality Modality Chest N/A Computed Tomogra phy 03/25/2024 12:3 8 PM [employer] C[employer] Impressions 03/25/2024 12:38 PM [employer] C[employer]TER No change in aortic dilatation when compared to the prior study of 10/11/2022. The aorta reaches a maximal dimension of 4.3 x 4.6 cm when measured orthogonal to the long axis. Electronically signed by: Jean Diaz M.D. Narrative 03/25/2024 12:38 PM B[employer] AND CU[employer] CUTTER Examination: CT angiogram of the chest with [...] Result * POCT creatinine (03/25/2024 11:54 AM B[employer] AND CU[employer] C[employer]TER) Creatinine POC 1.2 0.7 - 1.3 mg/dL Blood 03/25/2024 11:5 4 AM B[employer] AND CUFF CUTTER 03/25/2024 11:54 AM [employer] AND CUFF CUTTER Jair Barney MD LAB POCT ORDERABLES - DEVICE F inal Result SHIRA SOTOMAYOR [facility] Department [place] [address] * NM MPI SPECT (Rest and/or Stress) Multiple Studies (03/15/2024 12:07 PM BAND AND CUFF CUTTER) Anatomical Region Laterality Modality Body N/A Electrocardiogra phy Narrative 03/15/2024 10:29 PM BAND AND CUFF CUTTER Table formatting from the original result was not included. [facility] [address] [address] Nuclear MPI Pharmaceutical Study Patient Name: Rickey [...] interpreted by Jair Barney MD. us Jair Barnye MD IMG NM PROCEDURES Final Result * TRANSTHORACIC ECHO (TTE) COMPLETE W DOPPLER/CF W CONTRAST (03/11/2024 3:29 PM B[employer] AND CUFF CUTTER) LV EF 63 % CARDIOREPORT Anatomical Region Laterality Modality Ultrasound 03/11/2024 3:00 PM [employer] AND CUFF CUTTER Narrative 03/11/2024 9:02 PM [employer] AND CU[employer] CUTTER Patient name: Rickey Joshi Date of test: 03/11/2024 Type of test: TTE w/Doppler [facility] #: 0 Date of : 1950 (M) Plating Machine Operator: LARRY Monroe RDCS Referring Physician: JAIR BARNEY MD Contrast Agent: 0.30 ml Definity Administered, (1.20 ml wasted). Contrast Administered by: LARRY Monroe RDCS Supervised/Interpreted by: Jair Barney MD Diagnosis: Location: [facility] Reason for test: HTN, Aneurysm [...] 2=Hypo 3=Akinetic 4=Dyskin./Aneurysm 0=Not visualized) Parasternal Long [place]:MAS=2 BAS=2 MIL=1 ANITA=1 Parasternal Short [place]:MAS=2 MIS=1 OK=1 MIL=1 MAL=1 MA=1 Apical 4 Chambers:=1 MIS=1 BIS=1 BAL=1 MAL=1 AL=1 AC=1 Apical 2 Chambers:AI=1 OK=1 BI=1 BA=1 MA=1 AA=1 AC=1 LV Global [...] MD By signing this report, the attending smoke room operator certifies that he or she has personally supervised and interpreted the echocardiogram and has reviewed and or edited and agrees with the written comments contained within the report. Procedure Note Jair Barney MD - 03/11/2024 Patient name: Rickey Joshi Date of test: 03/11/2024 Type of test: TTE w/Doppler [facility] #: 0 Date of : 1950 (M) Plating Machine Operator: LARRY Monroe RDCS Referring Physician: JAIR BARNEY MD Contrast Agent: 0.30 ml Definity Administered, (1.20 ml wasted). Contrast Administered by: LARRY Monroe RDCS Supervised/Interpreted by: Jair Barney MD Diagnosis: Location: [facility] Reason for test: HTN, Aneurysm [...] 2=Hypo 3=Akinetic 4=Dyskin./Aneurysm 0=Not visualized) Parasternal Long [place]:MAS=2 BAS=2 MIL=1 ANITA=1 Parasternal Short [place]:MAS=2 MIS=1 OK=1 MIL=1 MAL=1 MA=1 Apical 4 Chambers:=1 MIS=1 BIS=1 BAL=1 MAL=1 AL=1 AC=1 Apical 2 Chambers:AI=1 OK=1 BI=1 BA=1 MA=1 AA=1 AC=1 LV Global [...] MD By signing this report, the attending smoke room operator certifies that he or she has personally supervised and interpreted the echocardiogram and has reviewed and or edited and agrees with the written comments contained within the report. Jair Barney MD CV ECHO PROCEDURES Final Resul t from Last 3 Months Insurance [employer] CHO[employer] MEDICARE PPO MEDICARE FOR LIFE FOR LIFE [employer] MEDICARE PPO Care Teams Mobile Lab Technician Relationship Specialty Start Date End Date Huber Culp MD [address] [facility] [address] [place] [address] PCP - General Family Medicine 12/08/17
--- OUTSIDE RECORDS SUMMARY | 2024-06-09 10:34 | XMS_ITS ---
Author Organization [facility] Address [address] [place], [place] [id number] Care Team Providers Care Aligner Barrel And Receiver Name Role Phone Culp Huber Primary Care Provider VIELKA Burgos Unavailable [phone] REASON FOR VISIT Patient presents for at-risk foot care . The patient has painful toenails that cause difficulty with ambulation and shoegear. The onset is gradual Medications Medication SIG (Take, Route, Frequency, Duration) Notes Start Date End Date Status urea 390 MG/ML Topical Cream CUTANEOUS urea 390 MG/ML Topical CreamOriginal Medicationurea 390 MG/ML Topical Cream *Reorder from [employer] for eRx and Interaction Alerts* 01/01/2012 Active aspirin 81 MG Delayed Release Oral Tablet ORAL aspirin 81 MG Delayed Release Oral TabletOriginal Medicationaspirin 81 MG Delayed Release Oral Tablet *Reorder from [employer] for eRx and Interaction Alerts* 09/08/2020 Active atorvastatin 10 MG Oral Tablet [Lipitor] ORAL atorvastatin 10 MG Oral Tablet [Lipitor]Original Medicationatorvastatin 10 MG Oral Tablet [Lipitor] *Reorder from [employer] for eRx and Interaction Alerts* 01/01/2012 Active fexofenadine hydrochloride 60 MG Oral Tablet [Renate] ORAL fexofenadine hydrochloride 60 MG Oral Tablet [Renate]Original Medicationfexofenadine hydrochloride 60 MG Oral Tablet [Renate] *Reorder from [employer] for eRx and Interaction Alerts* 01/01/2012 Active gabapentin 300 MG Oral Capsule [Neurontin] ORAL gabapentin 300 MG Oral Capsule [Neurontin]Original Medicationgabapentin 300 MG Oral Capsule [Neurontin] *Reorder from [facility] for eRx and Interaction Alerts* 02/03/2012 Active Lisinopril 20 MG Oral Tablet ORAL lisinopril 20 MG Oral TabletOriginal Medicationlisinopril 20 MG Oral Tablet *Reorder from [facility] for eRx and Interaction Alerts* 08/17/2014 Active Naproxen 250 MG Oral Tablet ORAL naproxen 250 MG Oral TabletOriginal Medicationnaproxen 250 MG Oral Tablet *Reorder from [facility] for eRx and Interaction Alerts* 01/01/2012 Active Atenolol 100 MG Oral Tablet ORAL atenolol 100 MG Oral TabletOriginal Medicationatenolol 100 MG Oral Tablet *Reorder from [facility] for eRx and Interaction Alerts* 01/01/2012 Active Lisinopril 10 MG Oral Tablet ORAL lisinopril 10 MG Oral TabletOriginal Medicationlisinopril 10 MG Oral Tablet *Reorder from [facility] for eRx and Interaction Alerts* 01/01/2012 Active Gabapentin 100 MG Oral Capsule ORAL gabapentin 100 MG Oral CapsuleOriginal Medicationgabapentin 100 MG Oral Capsule *Reorder from [facility] for eRx and Interaction Alerts* 08/17/2014 Active Encounters Encounter Location Date Provider Diagnosis [facility] [place] [address] [place] [id number] 02/09/2024 VIELKA ERLINK Tinea unguium B35.1 ; Pain in right toe(s) M79.674 ; Pain in left toe(s) M79.675 and Atherosclerosis of [place] arteries of extremities with intermittent claudication, bilateral [...] toe(s) (ICD-10 - M79.675) 02/09/2024 Atherosclerosis of [place] arteries of extremities with intermittent claudication, bilateral [...] Name:VIELKA BISWAS, 01:00:00 PM, [address], [address], [phone], Progress Notes * RODERICK STEINER SDOB: [birth year] (73 yo M)Acc No.[id number]:02/09/2024 Patient: RODERICK ROSADO Provider: Alea Biswas DPM :1950 A ge:73 Y S ex:Male Date:02/09/2024 Address:[address] [place], [place] [phone] Pcp:Huber Culp Subjective: * Chief Complaints: * [...] Medicationatenolol 100 MG Oral Tablet *Reorder from [facility] for eRx and Interaction Alerts*, Taking Lisinopril 20 MG Oral Tablet ORAL , Notes to Pharmacist: lisinopril 20 MG Oral TabletOriginal Medicationlisinopril 20 MG Oral Tablet *Reorder from [facility] for eRx and Interaction Alerts*, Taking Naproxen 250 MG Oral Tablet ORAL , Notes to Pharmacist: naproxen 250 MG Oral TabletOriginal Medicationnaproxen 250 MG Oral Tablet *Reorder from [facility] for eRx and Interaction Alerts*, Taking Lisinopril 10 MG Oral Tablet ORAL , Notes to Pharmacist: lisinopril 10 MG Oral TabletOriginal Medicationlisinopril 10 MG Oral Tablet *Reorder from [facility] for eRx and Interaction Alerts*, Taking Gabapentin 100 MG Oral Capsule ORAL , Notes to Pharmacist: gabapentin 100 MG Oral CapsuleOriginal Medicationgabapentin 100 MG Oral Capsule *Reorder from [facility] for eRx and Interaction Alerts*, Taking aspirin 81 MG Delayed Release Oral Tablet ORAL , Notes to Pharmacist: aspirin 81 MG Delayed Release Oral TabletOriginal Medicationaspirin 81 MG Delayed Release Oral Tablet *Reorder from [facility] for eRx and Interaction Alerts*, Taking atorvastatin 10 MG Oral Tablet [Lipitor] ORAL , Notes to Pharmacist: atorvastatin 10 MG Oral Tablet [Lipitor]Original Medicationatorvastatin 10 MG Oral Tablet [Lipitor] *Reorder from [facility] for eRx and Interaction Alerts*, Taking fexofenadine hydrochloride 60 MG Oral Tablet [Renate] ORAL , Notes to Pharmacist: fexofenadine hydrochloride 60 MG Oral Tablet [Renate]Original Medicationfexofenadine hydrochloride 60 MG Oral Tablet [Renate] *Reorder from [facility] for eRx and Interaction Alerts*, Taking gabapentin 300 MG Oral Capsule [Neurontin] ORAL , Notes to Pharmacist: gabapentin 300 MG Oral Capsule [Neurontin]Original Medicationgabapentin 300 MG Oral Capsule [Neurontin] *Reorder from [facility] for eRx and Interaction Alerts*, Taking urea 390 MG/ML Topical Cream CUTANEOUS , Notes to Pharmacist: urea 390 MG/ML Topical CreamOriginal Medicationurea 390 MG/ML Topical Cream *Reorder from [facility] for eRx and Interaction Alerts*, Medication [...] - M79.675 4 . A therosclerosis of [place] arteries of extremities with intermittent claudication, bilateral legs - I70.213 Plan: * Treatment: * Follow Up: 1 0-12 Weeks (Reason: At Risk Foot care, sooner if problems arise) * Billing Information: * Visit Code: 84007 Office Visit, Est Pt., Level 3. * Procedure Codes: * Electronic signature of VIELKA BISWAS DPM on 06/09/2024 at 10:33 AM CDT Sign off status: Pending * Provider: Alea Biswas DPM Date: 1 04/10/2023 Generated for Niko linares/Vishnu/Dexter on: 0 06/09/2024 10:33 AM CDT History and Physical Notes * [...]
--- OUTSIDE RECORDS SUMMARY | 2024-06-09 10:34 | XMS_ITS | Referral Summary ---
Author Organization [facility] [place] [address] Address [address] [place] [address] Care Team Providers Care Photographer Name Role Phone Huber Culp MD Primary Care Provider Encounters Date Type Department Care Team Description 03/25/2024 11:39 AM OFFICE MANAGER RECEPTIONIST - 03/25/2024 11:59 PM OFFICE MANAGER RECEPTIONIST Hospital Encounter [facility] Radiology at [address] [address] Aneurysm of ascending aorta without rupture Discharge Disposition: Discharge to home or self care 03/15/2024 10:00 AM OFFICE MANAGER RECEPTIONIST Ancillary Procedure [facility] [address] [place] [address] [place] [phone] HTN (hypertension), benign; Mitral valve insufficiency and aortic valve insufficiency 03/14/2024 Telephone [facility] [address] [place] [address] [place] [phone] Jair Barney MD Scheduling Testing/Treatment 03/11/2024 3:00 PM OFFICE MANAGER RECEPTIONIST Office Visit [facility] [address] [place] [address] [place] [phone] Jair Barney MD HTN (hypertension), benign (Primary Dx); Mitral valve insufficiency and aortic valve insufficiency 03/11/2024 3:00 PM OFFICE MANAGER RECEPTIONIST Ancillary Procedure [facility] [address] [place] [address] [place] [phone] HTN (hypertension), benign; Aneurysm of ascending aorta without rupture; Mitral valve insufficiency and aortic valve insufficiency from Last 3 Months Allergies No known [...] on file Legal Sex Male 1:55 AM OFFICE MANAGER RECEPTIONIST Gender Identity Not on file Sexual Orientation Not on file Last Filed Vital Signs Vital Sign Reading Time Taken Comments Blood Pressure 119/67 03/11/2024 3:19 PM OFFICE MANAGER RECEPTIONIST Pulse 79 03/11/2024 3:19 PM OFFICE MANAGER RECEPTIONIST Temperature 36.4 C (97.6 F) 03/11/2024 3:19 PM OFFICE MANAGER RECEPTIONIST Respiratory Rate - - Oxygen Saturation 97% 03/11/2024 3:19 PM OFFICE MANAGER RECEPTIONIST Inhaled Oxygen Concentration - - Weight 120.2 kg (265 lb) 03/11/2024 3:19 PM OFFICE MANAGER RECEPTIONIST Height 182.9 cm (6') 03/11/2024 3:19 PM OFFICE MANAGER RECEPTIONIST Body Mass Index 35.94 03/11/2024 3:19 PM OFFICE MANAGER RECEPTIONIST Plan of Treatment Not on file Procedures Procedure Name Priority Date/Time Associated Diagnosis Comments CTA CHEST W CONTRAST Schedule Routine, Read Routine (OP Routine) 03/25/2024 12:06 PM OFFICE MANAGER RECEPTIONIST Aneurysm of ascending aorta without rupture POCT CREATININE - DEVICE Routine 03/25/2024 11:54 AM OFFICE MANAGER RECEPTIONIST NM MPI SPECT (REST AND/OR STRESS) MULTIPLE STUDIES Schedule Routine, Read Routine (OP Routine) 03/15/2024 12:07 PM OFFICE MANAGER RECEPTIONIST HTN (hypertension), benign Mitral valve insufficiency and aortic valve insufficiency TRANSTHORACIC ECHO (TTE) COMPLETE W DOPPLER/CF W CONTRAST Routine 03/11/2024 3:29 PM OFFICE MANAGER RECEPTIONIST HTN (hypertension), benign Aneurysm of ascending aorta without rupture Mitral valve insufficiency and aortic valve insufficiency from Last 3 Months Results * CTA Chest W Contrast (03/25/2024 12:06 PM OFFICE MANAGER RECEPTIONIST) Anatomical Region Laterality Modality Chest N/A Computed Tomogra phy 03/25/2024 12:3 8 PM OFFICE MANAGER RECEPTIONIST Impressions 03/25/2024 12:38 PM OFFICE MANAGER RECEPTIONIST No change in aortic dilatation when compared to the prior study of 10/11/2022. The aorta reaches a maximal dimension of 4.3 x 4.6 cm when measured orthogonal to the long axis. Electronically signed by: Jean Diaz M.D. Narrative 03/25/2024 12:38 PM OFFICE MANAGER RECEPTIONIST Examination: CT angiogram of the chest with [...] Result * POCT creatinine (03/25/2024 11:54 AM OFFICE MANAGER RECEPTIONIST) Creatinine POC 1.2 0.7 - 1.3 mg/dL Blood 03/25/2024 11:5 4 AM OFFICE MANAGER RECEPTIONIST 03/25/2024 11:54 AM OFFICE MANAGER RECEPTIONIST Jair Barney MD LAB POCT ORDERABLES - DEVICE F inal Result Performing Organization Address City/State/[facility] Co de Phone Number [facility] Department [place] [address] * NM MPI SPECT (Rest and/or Stress) Multiple Studies (03/15/2024 12:07 PM OFFICE MANAGER RECEPTIONIST) Anatomical Region Laterality Modality Body N/A Electrocardiogra phy Narrative 03/15/2024 10:29 PM OFFICE MANAGER RECEPTIONIST Table formatting from the original result was not included. [facility] [address] [address] Nuclear MPI Pharmaceutical Study Patient Name: Rickey [...] Jair Barney MD. us Jair Barney MD IM NM PROCEDURES Final Result * TRANSTHORACIC ECHO (TTE) COMPLETE W DOPPLER/CF W CONTRAST (03/11/2024 3:29 PM OFFICE MANAGER RECEPTIONIST) LV EF 63 % CARDIOREPORT Anatomical Region Laterality Modality Ultrasound 03/11/2024 3:00 PM OFFICE MANAGER RECEPTIONIST Narrative 03/11/2024 9:02 PM OFFICE MANAGER RECEPTIONIST Patient name: Rickey Joshi Date of test: 03/11/2024 Type of test: TTE w/Doppler Hospital #: 0 Date of : 1950 (M) Prick Stitcher: LARRY Monroe RDCS Referring Physician: JAIR BARNEY MD Contrast Agent: 0.30 ml Definity Administered, (1.20 ml wasted). Contrast Administered by: LARRY Monroe RDCS Supervised/Interpreted by: Jair Barney MD Diagnosis: Location: [facility] Reason for test: HTN, Aneurysm [...] 2=Hypo 3=Akinetic 4=Dyskin./Aneurysm 0=Not visualized) Parasternal Long [place]:MAS=2 BAS=2 MIL=1 ANITA=1 Parasternal Short [place]:MAS=2 MIS=1 LA=1 MIL=1 MAL=1 MA=1 Apical 4 Chambers:=1 MIS=1 BIS=1 BAL=1 MAL=1 AL=1 AC=1 Apical 2 Chambers:AI=1 LA=1 BI=1 BA=1 MA=1 AA=1 AC=1 LV Global [...] MD By signing this report, the attending upper trimmer certifies that he or she has personally supervised and interpreted the echocardiogram and has reviewed and or edited and agrees with the written comments contained within the report. Procedure Note Jair Barney MD - 03/11/2024 Patient name: Rickey Joshi Date of test: 03/11/2024 Type of test: TTE w/Doppler [facility] #: 0 Date of : 1950 (M) Prick Stitcher: LARRY Monroe RDCS Referring Physician: JAIR BARNEY MD Contrast Agent: 0.30 ml Definity Administered, (1.20 ml wasted). Contrast Administered by: LARRY Monroe RDCS Supervised/Interpreted by: Jair Barney MD Diagnosis: Location: [facility] Reason for test: HTN, Aneurysm [...] 2=Hypo 3=Akinetic 4=Dyskin./Aneurysm 0=Not visualized) Parasternal Long [place]:MAS=2 BAS=2 MIL=1 ANITA=1 Parasternal Short [place]:MAS=2 MIS=1 LA=1 MIL=1 MAL=1 MA=1 Apical 4 Chambers:=1 MIS=1 BIS=1 BAL=1 MAL=1 AL=1 AC=1 Apical 2 Chambers:AI=1 LA=1 BI=1 BA=1 MA=1 AA=1 AC=1 LV Global [...] MD By signing this report, the attending upper trimmer certifies that he or she has personally supervised and interpreted the echocardiogram and has reviewed and or edited and agrees with the written comments contained within the report. Jair Barney MD CV ECHO PROCEDURES Final Resul t from Last 3 Months Insurance [employer] CHOICE MEDICARE PPO MEDICARE FOR LIFE FOR LIFE [employer] CHOICE MEDICARE PPO Care Teams Photographer Relationship Specialty Start Date End Date Huber Culp MD [address] [place] [address] PCP - General Family Medicine 12/08/17
== END 2024-06-09 09:44 | disposition home or self-care (01) ==
PROVIDERS: PCP Family Medicine; Visit Provider Orthopaedic Surgery
DX: Z96.651 Presence of right artificial knee joint (principal)
CPT/HCPCS: 73562

== ENCOUNTER 2024-09-27 13:07 | Outpatient (CLI) | payer MEDICARE, OTHER, SELFPAY ==
--- NOTE | ~2024-09-27 | CT_ITS ---
EXAMINATION: CT_LELTCWO_CT DATE: 09/27/2024 13:41 INDICATION: Preoperative planning TECHNIQUE: Computed tomography (CT) of the abdomen and pelvis was performed without intravenous contr ast. Automated exposure control and iterative reconstruction technique were employed. The dose-length product was 2008.94 mGy-cm. COMPARISON: Left knee radiographs dated 09/16/2024 FINDINGS: Bone alignment is normal. No fracture. Tricompartmental osteoarthritis at the right knee with moderat e-sized marginal osteophytes all 3 components. There is severe joint space during the medial compartm ent on the prior weightbearing imaging which is underestimated on the current nonweightbearing imagin g. There is moderate joint space narrowing at the lateral aspect of the patellofemoral compartment. S mall left knee joint effusion. Mild osteoarthritis at the left hip without evident joint effusion. Ty pical distribution of minimal to mild polyarticular osteoarthritis in the left mid and forefoot. Soft tissues in the left lower limb are unremarkable. Dystrophic dermal calcifications along the left scr otum. No pathologically enlarged left pelvic or inguinal lymphadenopathy. IMPRESSION: 1. 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 Reviewed, dictated and finalized at location B. IMPRESSION: 1. Tricompartmental osteoarthritis at the left knee, severe in the medial nate rtment and moderate in the patellofemoral compartment.
--- OUTSIDE RECORDS SUMMARY | 2024-09-27 13:31 | XMS_ITS | Patient Health Record ---
Author Organization [facility] Address [address] [place], [place] [phone] Care Team Providers Care Commissioned Sales Associate Name Role Phone Robbi Huber Primary Care Provider VIELKA Burgos Unavailable [phone] Allergies No Known Allergies Reason For Referral No Information Medications Medication SIG (Take, Route, Frequency, Duration) Notes Start Date End Date Status urea 390 MG/ML Topical Cream CUTANEOUS urea 390 MG/ML Topical CreamOriginal Medicationurea 390 MG/ML Topical Cream *Reorder from [employer] for eRx and Interaction Alerts* 01/01/2012 Active Atenolol 100 MG Oral Tablet ORAL atenolol 100 MG Oral TabletOriginal Medicationatenolol 100 MG Oral Tablet *Reorder from [employer] for eRx and Interaction Alerts* 01/01/2012 Active Naproxen 250 MG Oral Tablet ORAL naproxen 250 MG Oral TabletOriginal Medicationnaproxen 250 MG Oral Tablet *Reorder from [employer] for eRx and Interaction Alerts* 01/01/2012 Active Lisinopril 20 MG Oral Tablet ORAL lisinopril 20 MG Oral TabletOriginal Medicationlisinopril 20 MG Oral Tablet *Reorder from [employer] for eRx and Interaction Alerts* 08/17/2014 Active Gabapentin 100 MG Oral Capsule ORAL gabapentin 100 MG Oral CapsuleOriginal Medicationgabapentin 100 MG Oral Capsule *Reorder from [employer] for eRx and Interaction Alerts* 08/17/2014 Active Lisinopril 10 MG Oral Tablet ORAL lisinopril 10 MG Oral TabletOriginal Medicationlisinopril 10 MG Oral Tablet *Reorder from [facility] for eRx and Interaction Alerts* 01/01/2012 Active atorvastatin 10 MG Oral Tablet [Lipitor] ORAL atorvastatin 10 MG Oral Tablet [Lipitor]Original Medicationatorvastatin 10 MG Oral Tablet [Lipitor] *Reorder from [facility] for eRx and Interaction Alerts* 01/01/2012 Active aspirin 81 MG Delayed Release Oral Tablet ORAL aspirin 81 MG Delayed Release Oral TabletOriginal Medicationaspirin 81 MG Delayed Release Oral Tablet *Reorder from [facility] for eRx and Interaction Alerts* 09/08/2020 Active gabapentin 300 MG Oral Capsule [Neurontin] ORAL gabapentin 300 MG Oral Capsule [Neurontin]Original Medicationgabapentin 300 MG Oral Capsule [Neurontin] *Reorder from [facility] for eRx and Interaction Alerts* 02/03/2012 Active fexofenadine hydrochloride 60 MG Oral Tablet [Renate] ORAL fexofenadine hydrochloride 60 MG Oral Tablet [Renate]Original Medicationfexofenadine hydrochloride 60 MG Oral Tablet [Renate] *Reorder from [facility] for eRx and Interaction Alerts* 01/01/2012 Active Immunizations Vaccine Route Administration Date Status Comme nts Pneumococcal conjugate PCV 13 Unknown 02/09/2024 Refuse d Influenza, seasonal, injecta ble, preservative free, 3 yrs and above Unknown 12/25/2022 Administered Influenza, high dose seasonal Unknown 02/09/2024 Refuse d Vital Signs Height-cm 182.88 cm 08/30/2024 Weight-kg 136.08 kg 08/30/2024 Height 72.0 in 08/30/2024 Weight 300 lbs 08/30/2024 BMI 40.68 kg/m2 08/30/2024 Encounters Encounter Location Date Provider Diagnosis [facility] [place] [address] [place] [phone] 09/29/2023 VIELKA SNOOK Tinea unguium B35.1 ; Pain in right foot M79.671 ; Pain in left foot M79.672 ; Atherosclerosis of [place] arteries of extremities with intermittent claudication, bilateral legs I70.213 and Acquired keratosis [keratoderma] palmaris et plantaris L85.1 [facility] [place] [facility] [address] [place], [place] [phone] 12/08/2023 VIELKA SNOOK Tinea unguium B35.1 ; Acquired keratosis [keratoderma] palmaris et plantaris L85.1 ; Atherosclerosis of [place] arteries of extremities with intermittent claudication, bilateral legs I70.213 ; Pain in right foot M79.671 and Pain in left foot M79.672 [facility] [place] [facility] [address] [place] [phone] 02/09/2024 VIELKA SNOOK Tinea unguium B35.1 ; Pain in right toe(s) M79.674 ; Pain in left toe(s) M79.675 and Atherosclerosis of [place] arteries of extremities with intermittent claudication, bilateral legs I70.213 [facility] [address] [place] [id number] 04/19/2024 VIELKA SNOOK Tinea unguium B35.1 ; Pain in right toe(s) M79.674 ; Pain in left toe(s) M79.675 and Atherosclerosis of [place] arteries of extremities with intermittent claudication, bilateral legs I70.213 [facility] [address] [place] [phone] 06/21/2024 VIELKA SNOOK Tinea unguium B35.1 ; Pain in right toe(s) M79.674 ; Pain in left toe(s) M79.675 and Atherosclerosis of [place] arteries of extremities with intermittent claudication, bilateral legs I70.213 [facility] [address] [place] [id number] 08/30/2024 VIELKA SNOOK Tinea unguium B35.1 ; Pain in right toe(s) M79.674 ; Pain in left toe(s) M79.675 and Atherosclerosis of [place] arteries of extremities with intermittent claudication, bilateral legs I70.213 Assessments Encounter Date Diagnosis (ICD Code) Assessment Notes Treatment Notes Treatment Clinical Notes Section Notes 09/29/2023 Tinea unguium (ICD-10 - B35.1) Nails [...] Pain in right toe(s) (ICD-10 - M79.674) 06/21/2024 Tinea unguium (ICD-10 - B35.1) FUNGAL TOENAILS: Discussed various treatment options for fungal toenails including debridement, topical antifungals, oral antifungals, toenail avulsion, or toenail matrixectomy. NAIL DEBRIDEMENT: Nails 1-5 Bilateral were debrided extensively with nail nippers and emery board, reducing length and girth to pink healthy tissue with any subungual debris and necrotic tissue removed 06/21/2024 Pain in right toe(s) (ICD-10 - M79.674) 08/30/2024 Tinea unguium (ICD-10 - B35.1) FUNGAL TOENAILS: Discussed various treatment options for fungal toenails including debridement, topical antifungals, oral antifungals, toenail avulsion, or toenail matrixectomy. NAIL DEBRIDEMENT: Nails 1-5 Bilateral were debrided extensively with nail nippers and emery board, reducing length and girth to pink healthy tissue with any subungual debris and necrotic tissue removed 08/30/2024 Pain in right toe(s) (ICD-10 - M79.674) 08/30/2024 Pain in left toe(s) (ICD-10 - M79.675) 06/21/2024 Pain in left toe(s) (ICD-10 - M79.675) 04/19/2024 Pain in left toe(s) (ICD-10 - M79.675) 02/09/2024 Pain in left toe(s) (ICD-10 - M79.675) 12/08/2023 Atherosclerosis of [place] arteries of extremities with intermittent claudication, bilateral legs (ICD-10 - I70.213) 09/29/2023 Pain in left foot (ICD-10 - M79.672) 09/29/2023 Atherosclerosis of [place] arteries of extremities with intermittent claudication, bilateral legs (ICD-10 - I70.213) 02/09/2024 Atherosclerosis of [place] arteries of extremities with intermittent claudication, bilateral legs (ICD-10 - I70.213) 12/08/2023 Pain in right foot (ICD-10 - M79.671) 04/19/2024 Atherosclerosis of [place] arteries of extremities with intermittent claudication, bilateral legs (ICD-10 - I70.213) 06/21/2024 Atherosclerosis of [place] arteries of extremities with intermittent claudication, bilateral legs (ICD-10 - I70.213) 08/30/2024 Atherosclerosis of [place] arteries of extremities with intermittent claudication, bilateral legs (ICD-10 - I70.213) 12/08/2023 Pain in left foot (ICD-10 - M79.672) 09/29/2023 Acquired keratosis [keratoderma] palmaris et plantaris (ICD-10 - L85.1) A total of 2 corns or calluses, as described in the note above, were cut and pared utilizing a #15 blade Plan Of Treatment Next Appt Details Provider Name:VIELKA MITCHELL, 02:40:00 PM, [address], [place], [place], [phone], Insurance Providers Payer Name Payer Address Payer Phone Subscriber Number Group Number Insured Name Patient Relationship to Insured Coverage Start Date Coverage End Date [address] [id number] RODERICK GUERRA Self - patient is the insured for Life ([employer]) [address] [place], [place] [phone] [id number] RODERICK GUERRA Self - patient is the insured
--- OUTSIDE RECORDS SUMMARY | 2024-09-27 13:31 | XMS_ITS | Encounter Summary ---
Author Organization [facility] Address [address] [place] [address] Phone Care Team Providers Care Census Clerk Name Role Phone Huber Culp MD Primary Care Provider Encounter Details Date Type Department Care Team (Latest Contact Info) Description 09/30/2020 Orders Only [facility] Scanning, Provider Social History Tobacco Use Types Packs/Day Years Used Date Smoking Tobacco: Never Smokeless Tobacco: Never Sex and Gender Information Value Date Recorded Sex Assigned at Not on file Legal Sex Male 1:55 AM WARPER CREELER Gender Identity Not on file Sexual Orientation [...] on filedocumented in this encounter Care Teams Census Clerk Relationship Specialty Start Date End Date Huber Culp MD [address] [facility] [address] [place] [address] PCP - General Family Medicine 12/08/17 documented as of this encounter
--- OUTSIDE RECORDS SUMMARY | 2024-09-27 13:31 | XMS_ITS | Encounter Summary ---
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
--- OUTSIDE RECORDS SUMMARY | 2024-09-27 13:31 | XMS_ITS | Clinical Summary ---
Author Organization [facility] [place] [place] [address] Address [address] [place] [address] Care Team Providers Care Paddock Judge Name Role Phone Huber Culp MD Primary Care Provider Allergies No known active allergies Medications loratadine (CLARITIN) 10 mg tablet 12/07/2019 Active atenoloL (TENORMIN) 25 mg tablet Take 1 tablet (25 mg total) by mouth daily 12/07/2019 Active fenofibrate (TRIGLIDE) 160 mg tablet Take 1 tablet (160 mg total) by mouth daily 12/07/2019 Active atorvastatin (LIPITOR) 40 mg tablet Take 1 tablet (40 mg total) by mouth daily 12/07/2019 Active aspirin 81 mg enteric coated tablet Take 1 tablet (81 mg total) by mouth daily Active gabapentin (NEURONTIN) 300 mg capsule Take 1 capsule (300 mg total) by mouth 3 (three) times a day Active lisinopriL (PRINIVIL,ZESTRI L) 30 mg tablet Take 1 tablet (30 mg total) by mouth daily 11/14/2021 Active antiarthritic combination no.2 900 mg tablet Take 900 mg by mouth Active pantoprazole DR (PROTONIX) 40 mg EC tablet Take 1 tablet (40 mg total) by mouth every morning 12/11/2022 Active zolpidem CR (AMBIEN CR) 12.5 mg CR tablet Take 1 tablet (12.5 mg total) by mouth nightly at bedtime 11/29/2022 Active hydroCHLOROthiaz tj (HYDRODIURIL) 25 mg tablet Take 0.5 tablets (12.5 mg total) by mouth daily 45 tablet 3 09/11/2023 Active FeroSuL 325 mg (65 mg iron) tablet Take 1 tablet (325 mg total) by mouth 2 (two) times a day 02/27/2024 Active docusate sodium (COLACE) 100 mg capsule Take 1 capsule (100 mg total) by mouth as needed 12/31/2023 Active Zepbound 2.5 mg/0.5 mL pen injector once a week 03/06/2024 Active Active Problems Problem Noted Date Diagnosed Date Pre-operative cardiovascular examination 025 Mitral valve insufficiency and aortic valve insu fficiency 06/16/2021 HTN (hypertension), benign 03/25/2020 Encounters Date Type Department Care Team Description 09/16/2024 1:30 PM CDT Office Visit [facility] Cardiology [address] [facility] [address] [place] [address] Kyaw Tomlinson MD Pre-operative cardiovascular examination (Primary Dx) 08/17/2024 Orders Only [facility] [address] [place] [address] Unknown, Notinfile from Last 3 Months Social History Tobacco Use Types Packs/Day Years Used Date Smoking Tobacco: Never Smokeless Tobacco: Never Tobacco Cessation:Counseling Given: Not Answered Sex and Gender Information Value Date Recorded Sex Assigned at Not on file 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 Gender Identity Not on file Sexual Orientation Not on file Obstetrics History Last Filed Vital Signs Vital Sign Reading Time Taken Comments Blood Pressure 117/75 09/16/2024 1:30 PM CDT Pulse 69 09/16/2024 1:30 PM CDT Temperature 36.6 C (97.8 F) 09/16/2024 1:30 PM CDT Respiratory Rate - - Oxygen Saturation 99% 09/16/2024 1:30 PM CDT Inhaled Oxygen Concentration - - Weight 119.3 kg (263 lb) 09/16/2024 1:30 PM CDT Height 182.9 cm (6') 09/16/2024 1:30 PM CDT Body Mass Index 35.67 09/16/2024 1:30 PM CDT Plan of Treatment Health Maintenance Due Date Last Done Comments Colon Cancer Screening-Colonoscopy 1950 Depression Screening 1950 Fall Risk Assessment 1950 Hepatitis C Screening 1950 Hepatitis B Screening 11/15/1969 Well Visit 65+ 11/15/2016 Influenza Vaccine (Season Ended) 2024 12/31/2019, 06/08/2019, 12/24/2017, Additional history exists DTaP/Tdap/Td Vaccine (2 - Td or Tdap) 09/17/2032 09/17/2022, 12/08/2018 Pneumococcal vaccine 65+ Completed 021, 12/24/2017, 12/24/2017 Zoster Vaccine Completed 08/29/2020, 01/29, 03/31/2013 Procedures Procedure Name Priority Date/Time Associated Diagnosis Comments ECG 12-LEAD Routine 09/16/2024 1:52 PM CDT Pre-operative cardiovascular examination SURGICAL PATHOLOGY Routine 08/17/2024 12 :40 PM CDT from Last 3 Months Results * ECG 12 lead (09/16/2024 1:52 PM CDT) Kyaw Tomlinson MD ECG ORDERABLES Final Result * Surgical pathology (08/17/2024 12:40 PM CDT) Skin, shave biopsy 08/17/2024 12:40 PM CDT 08/18/2024 8:45 AM CDT Narrative 08/19/2024 11:02 AM CDT [facility] results best viewed via link to PDF [facility] - [facility] [address] [place] [address], [address], [place] [address] [email or web address] Note to Patients: This report may contain a detailed description of human tissue sent by a health care provider to the laboratory for pathologic evaluation. The content of this report is essential for diagnosis and may provide important critical findings. This information may be unfamiliar to patients to review without a medical professional present. It is advised that the patient review this report in the presence of a health care provider who can answer questions and explain the details. FINAL REPORT Patient Information: PATIENT NAME: RODERICK JOSHI SEX: M : 1950 (Age: 73) Specimen Information: COLLECTED: 08/17/2024 RECEIVED: 08/18/2024 REPORTED: 08/19/2024 Submitting Physician Information: Windy Lynch, [facility], [address] [place] [address], DERMATOPATHOLOGY REPORT RESULTS DIAGNOSIS: SKIN, RIGHT SUPERIOR HELIX, SHAVE BIOPSY: ACTINIC KERATOSIS exr/lac By this signature, I attest that the above diagnosis is based upon my personal examination of the slides(and/or other material indicated in the diagnosis). Kimmy Do M.D. Report Electronically Reviewed and Signed Out By Kimmy Do M.D. 08/19/2024 11:02:12 CLINICAL INFORMATION NEOPLASM OF UNCERTAIN BEHAVIOR VS IRRITATED SEBORRHEIC KERATOSIS VS SQUAMOUS CELL CARCINOMA SPECIMEN DATA MICROSCOPIC DESCRIPTION: Buds of atypical keratinocytes emanate from the undersurface of the epidermis. There is orthokeratotic and/or parakeratotic scale. (L57.0) GROSS DESCRIPTION: Received in a formalin-containing bottle is a superficial fragment of pale avila, crusted and mildly domed skin measuring 0.8 by 0.4 by 0.1 cm. The surgical margin is inked blue. The specimen is sectioned into 2 pieces and submitted entirely in a single cassette. Due to shrinkage, measurements may be different than those at time of procedure. sxt/anc ICD-9 A; ZSD.27 Clerical Data A; 35559 The characteristics of special, immunohistochemical, and immunofluorescence stains and in-situ hybridization tests performed by the [facility] were deemed acceptable in ongoing software quality assurance engineer measures and in compliance with regulations drawn from the Clinical Laboratory Improvement Act ug2931 (CLIA '88). Control reactions for all stains performed were deemed adequate and appropriate by a pathologist prior to evaluation of patient tissue. Some diagnoses were rendered with the assistance of laboratory-developed tests utilizing analyte-specific reagents; the performance characteristic of these tests were determined by [facility] and are not cleared or approved by the [place] Food an Drug administration. Laboratory developed test may only be performed in a facility that is certified by the [facility] as a high-complexity laboratory under CLIA '88. These tests are used for clinical purposes and are not investigational. us Notinfile Unknown LAB PATHOLOGY ORDERABLES Final Result from Last 3 Months Insurance [facility] [employer] HU[employer] CHOICE MEDICARE PPO MEDICARE FOR LIFE FOR LIFE HUMANA CHOICE MEDICARE PPO Care Teams Paddock Judge Relationship Specialty Start Date End Date Huber Culp MD [address] [facility] [address] [place] [address] PCP - General Family Medicine 12/08/17
--- OUTSIDE RECORDS SUMMARY | 2024-09-27 13:31 | XMS_ITS | Referral Summary ---
Author Organization [facility] [address] Address [address] [place] [address] Care Team Providers Care Highway Patrol Pilot Name Role Phone Huber Culp MD Primary Care Provider Encounters Date Type Department Care Team Description 09/16/2024 1:30 PM CDT Office Visit [facility] Cardiology [address] 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 Gender Identity Not on file Sexual Orientation [...] 09/16/2024 1:30 PM CDT Plan of Treatment Not on file Procedures Procedure Name Priority Date/Time Associated Diagnosis Comments ECG 12-LEAD Routine 09/16/2024 1:52 PM CDT Pre-operative cardiovascular examination SURGICAL PATHOLOGY Routine 08/17/2024 12 :40 PM CDT from Last 3 Months Results * ECG 12 lead (09/16/2024 1:52 PM CDT) us Kyaw Tomlinson MD ECG ORDERABLES Final Result * Surgical pathology (08/17/2024 12:40 PM CDT) Skin, shave biopsy 08/17/2024 12:40 PM CDT 08/18/2024 8:45 AM CDT Narrative 08/19/2024 11:02 AM CDT EPIC results best viewed via link to PDF [facility] [address] [place] [address], [address], [place] [address] [email or web address] Note to Patients: This report may contain [...] 08/18/2024 REPORTED: 08/19/2024 Submitting Physician Information: Windy Lynch [facility], [address] [place] [address], DERMATOPATHOLOGY REPORT RESULTS DIAGNOSIS: SKIN, RIGHT SUPERIOR [...] sxt/anc ICD-9 A; ZSD.27 Clerical Data A; 02268 The characteristics of special, immunohistochemical, and immunofluorescence stains and in-situ hybridization tests performed by the [facility] were deemed acceptable in ongoing senior quality assurance engineer measures and in compliance with regulations drawn from the Clinical Laboratory Improvement Act tg0143 (CLIA '88). Control reactions for all stains performed were deemed adequate and appropriate by a pathologist prior to evaluation of patient tissue. Some diagnoses were rendered with the assistance of laboratory-developed tests utilizing analyte-specific reagents; the performance characteristic of these tests were determined by [facility] and are not cleared or approved by the [place] Food an Drug administration. Laboratory developed test may only be performed in a facility that is certified by the [facility] as a high-complexity laboratory under CLIA '88. These tests are used for clinical purposes and are not investigational. us Notinfile Unknown LAB PATHOLOGY ORDERABLES Final Result from Last 3 Months Insurance [employer] HUMANA CHOICE MEDICARE PPO FOR LIFE FOR LIFE HUMANA CHOICE MEDICARE PPO Care Teams Highway Patrol Pilot Relationship Specialty Start Date End Date Huber Culp MD [address] [facility] [address] [place] [address] PCP - General Family Medicine 12/08/17
--- OUTSIDE RECORDS SUMMARY | 2024-09-27 13:31 | XMS_ITS | Encounter Summary ---
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
== END 2024-09-27 13:08 | disposition home or self-care (01) ==
PROVIDERS: PCP Family Medicine; Visit Provider Orthopaedic Surgery
DX: M17.12 Unilateral primary osteoarthritis, left knee (principal)
CPT/HCPCS: 73700

== ENCOUNTER 2024-12-08 13:35 | Outpatient (CLI) | payer MEDICARE, OTHER, SELFPAY ==
--- OUTSIDE RECORDS SUMMARY | 2010-01-18 10:30 | XMS_ITS | Continuity of Care Document ---
Author Organization [facility] Address [address] [place] [address] Phone Care Team Providers Care Care Transition Mgr Name Role Phone Heather Pritchard Unavailable Unavailable Procedures Procedure Date Post-op Follow-up Visit Post-op Follow-up Visit Post-op Follow-up Visit Remove Cataract, Insert Lens Eye Exam, New Patient IOLMaster Advance Directives Directive Yes / No Effective Date File Name No Information Encounters Encounter Description Practice Location Reason(s) For Visit Diagnoses Date Provider Providers Copied on Encounter [facility], [address] [place] [address] [address], [place], [place], [id number], tel:[phone] [facility] No Information Oct-2 1-201 0 Francheska Garcia [address] , [address], [place], [place], [facility], [place]. tel:[phone] [facility], [address], [place], [place], [id number], [place] tel:[phone] [facility] No Information Oct-0 5-201 0 Francheska Servinn. [address] , [address], [place], [address], [place]. tel:[phone] [facility], [address], [place], [place], [id number], [place] tel:[phone] [facility] No Information Sep-2 3-201 0 Pritchard Heather. [address] , [address], [place], [place], [facility], [place]. tel:[phone] [facility] Eye [facility], [address], [place], [place], [id number], tel:[phone] [facility] No Information Sep-2 2-201 0 Pritchard Heather. [address], [place], [facility], [place]. tel:[phone] [facility], [address], [place], [place], [id number], tel:[phone] [facility] No Information Sep-0 7-201 0 Pritchard Heather. [address] [facility] , [address], [place], [place], [facility], [place]. tel:[phone] Referring Provider: Brian Gabriel, [address], [place], [address]. tel:[phone] Family History Family Member Type Diagnosis Age At Onset No Information Payers Payer name Insurance type Covered alliance party ID Authoriza tion(s) No Information Social History Type Description Quantity Date Captured Comments Sex Male Smoking Status No Information Chief Complaint And Reason For Visit No Information Reason For Referral Reason For Referral No Information History Of Present Illness Encounter Date Complaint History Of Prese nt Illness No Information Functional Status Date Functional Assessmen t No Information Instructions Date Instruction Additional Infor mation No Information Assessments Type Assessment Date No Information Patient Care Teams Name Effective Dates (start - stop) Status Members No Information
--- OUTSIDE RECORDS SUMMARY | 2024-12-08 14:23 | XMS_ITS | Encounter Summary ---
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
--- OUTSIDE RECORDS SUMMARY | 2024-12-08 14:23 | XMS_ITS | Encounter Summary ---
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
--- OUTSIDE RECORDS SUMMARY | 2024-12-08 14:23 | XMS_ITS | Encounter Summary ---
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
--- OUTSIDE RECORDS SUMMARY | 2024-12-08 14:23 | XMS_ITS | Clinical Summary ---
Author Organization [facility] [address] Address [address] [place] [address] Care Team Providers Care Halfway House Counselor Name Role Phone Huber Culp MD Primary [...] Encounters Date Type Department Care Team Description 10/14/2024 Telephone [facility] Medicine Cardiology [address] [place] [phone] Kyaw Tomlinson MD Surgical Clearance (Left Total Knee Arthroplasty) 09/16/2024 1:30 PM CDT Office Visit [facility] Medicine Cardiology [address] [place] [phone] Kyaw Tomlinson MD Pre-operative cardiovascular examination (Primary Dx) from Last 3 Months Social History Tobacco Use Types Packs/Day Years Used Date Smoking Tobacco: Never Smokeless Tobacco: Never Tobacco Cessation:Counseling Given: Not Answered Sex and Gender Information Value Date Recorded Sex Assigned at Not on file 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 Gender Identity Not on file Sexual Orientation [...] Well Visit 65+ 11/15/2016 Influenza Vaccine (#1) 2024 0, 06/08/2019, 12/24/2017, Additional history exists DTaP/Tdap/Td Vaccine (2 - Td or Tdap) 09/17/2032 09/17/2022, 12/08/2018 Pneumococcal vaccine 65+ Completed 021, 12/24/2017, 12/24/2017 Zoster Vaccine Completed 08/29/2020, 01/29, 03/31/2013 Procedures Procedure Name Priority Date/Time Associated Diagnosis Comments ECG 12-LEAD Routine 09/16/2024 1:52 PM CDT Pre-operative cardiovascular examination from Last 3 Months Results * ECG 12 lead (09/16/2024 1:52 PM CDT) us Kyaw Tomlinson MD ECG ORDERABLES Final Result from Last 3 Months Insurance [email or web address] HUMAN CHOICE MEDICARE O MEDICARE FOR LIFE FOR LIFE [employer] CHOICE MEDICARE PPO Care Teams Halfway House Counselor Relationship Specialty Start Date End Date Huber Culp MD [address] [facility] [address] [place] [address] PCP - General Family Medicine 12/08/17
[2024-12-08 14:49] LABS: Hematocrit 35.3 % (42.0-52.0); Hemoglobin 12.5 g/dL (14.0-18.0); Immature Granulocyte Percent A 0.3 % (0-0.5); Lymphocytes Absolute Auto 1.03 K/mm3 (0.9-3.2); Mean Corpuscular HGB Conc 35.4 g/dl (32-36); Mean Corpuscular Hemoglobin 30.7 pg (26-34); Mean Corpuscular Volume 86.7 fl (80-100); Nucleated Red Blood Cells Absolute Auto 0.000 K/mm3 (0.0-0.012); Nucleated Red Blood Cells Perc 0.0 % (0.0-0.2); Platelet Count Result 164 k/mm3 (150-375); Red Blood Count 4.07 M/mm3 (4.6-6.20); White Blood Count 6.0 K/mm3 (4.5-10.0)
[2024-12-08 14:58] LABS: Albumin Level 4.6 g/dL (3.5-5.1)
[2024-12-08 14:59] LABS: INR 1.0; Prothrombin Time 13.6 Seconds (11.1-14.7)
[2024-12-08 15:00] LABS: Partial Thromboplastin Time 27.5 Seconds (22.3-36.8)
[2024-12-08 15:01] LABS: Anion Gap 8 mmol/L (4-12); Blood Urea Nitrogen 12 mg/dL (9-20); Calcium 9.2 mg/dL (8.4-10.2); Carbon Dioxide 25 mmol/L (22-30); Chloride 94 mmol/L (98-107); Estimated Glomerular Filt Rate > 60; Glucose 90 mg/dL (65-110); Potassium 4.5 mmol/L (3.4-5.0); Sodium 127 mmol/L (137-145)
[2024-12-08 15:58] LABS: MRSA (PCR) NOT DETECTED (NOT DETECTE)
[2024-12-08 16:01] LABS: Hemoglobin A1C 5.2 % (<5.7)
== END 2024-12-08 13:36 | disposition home or self-care (01) ==
LOC: ANHSURGERY 13:44
PROVIDERS: Anesthesiology; PCP Family Medicine; Visit Provider Orthopaedic Surgery
DX: M17.12 Unilateral primary osteoarthritis, left knee (principal); N18.9 Chronic kidney disease, unspecified; Z01.818 Encounter for other preprocedural examination
CPT/HCPCS: 36415; 80048; 80307; 82040; 83036; 85025; 85610; 85730; 87641

== ENCOUNTER 2024-12-30 01:03 | Day surgery (SDC) | payer MEDICARE, OTHER, SELFPAY ==
--- OUTSIDE RECORDS SUMMARY | 2010-01-18 10:30 | XMS_ITS | Continuity of Care Document ---
Author Organization [facility] Address [address] [place] [address] Phone Care Team Providers Care Visual Display Manager Name Role Phone Heather Pritchard Unavailable Unavailable Procedures Procedure Date Post-op Follow-up Visit Post-op Follow-up Visit Post-op Follow-up Visit Remove Cataract, Insert Lens Eye Exam, New Patient IOLMaster Advance Directives Directive Yes / No Effective Date File Name No Information Encounters Encounter Description Practice Location Reason(s) For Visit Diagnoses Date Provider Providers Copied on Encounter [facility], [address] [place] [address] [address], [place], [place], [id number], tel:[phone] [facility] No Information Oct-2 1-201 0 Francheska Garcia [address] , [address], [place], [place], [facility], [place]. tel:[phone] [facility], [address], [place], [place], [id number], [place] tel:[phone] [facility] No Information Oct-0 5-201 0 Francheska Romero. [address] , [address], [place], [address], [place]. tel:[phone] [facility], [address], [place], [place], [id number], [place] tel:[phone] [facility] No Information Sep-2 3-201 0 Pritchard Heather. [address] , [address], [place], [place], [facility], [place]. tel:[phone] [facility] Eye [facility], [address], [place], [place], [id number], tel:[phone] [facility] No Information Sep-2 2-201 0 Pritchard Heather. [address], [place], [place], [facility], [place]. tel:[phone] [facility], [address], [place], [place], [id number], tel:[phone] [facility] No Information Sep-0 7-201 0 Pritchard Heather. [address] [facility] [address] , [address], [place], [place], [facility], [place]. tel:[phone] Referring Provider: Brian Gabriel, [address] [facility] [address], [place], [address]. tel:[phone] Family History Family Member Type Diagnosis Age At Onset No Information Payers Payer name Insurance type Covered green party ID Authoriza tion(s) No Information Social [...]
--- OUTSIDE RECORDS SUMMARY | 2024-04-19 11:20 | XMS_ITS ---
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 Name Role Phone Huber Culp Primary Care Provider Unavailabl VIELKA Leonardo Unavailable [phone] REASON FOR VISIT *General care Encounters Encounter Location Date Provider Diagnosis [facility] [address] [place], [place] [id number] 04/19/2024 VIELKA BISWAS Plan Of Treatment Next Appt Details Provider Name:VIELKA BISWAS, 02:40:00 PM, [address], [place], [place], [id number], Progress Notes * RODERICK STEINER SDOB: [birth year] (74 yo M)Acc No.[id number]:04/19/2024 Patient: RODERICK ROSADO Provider: Alea Biswas DPM :1950 A ge:73 Y S ex:Male Date:04/19/2024 Address:[facility] [address] [place], [id number] Pcp:Huber Culp Subjective: * Chief Complaints: * 1 . *General care. * Medical History: Objective: * Vitals: Assessment: Plan: * Treatment: * Billing Information: * Visit Code: * Procedure Codes: * Electronic signature of VIELKA BISWAS DPM on 12/30/2024 at 01:15 AM CDT Sign off status: Pending * Provider: Alea Biswas DPM Date: 0 04/19/2024 Generated for Niko Tong/Dexter on: 1 01:15 AM CDT
--- OUTSIDE RECORDS SUMMARY | 2024-11-22 09:40 | XMS_ITS ---
Author Organization [facility] Address [address] [place], [place] [address] Care Team Providers Care Seam Finisher Name Role Phone Robbi Huber Primary Care Provider VIELKA Burgos Unavailable [phone] REASON FOR VISIT Patient presents for at-risk foot care . The patient has painful toenails that cause difficulty with ambulation and shoegear. The onset is gradual Medications Medication SIG (Take, Route, Frequency, Duration) Notes Start Date End Date Status fexofenadine hydrochloride 60 MG Oral Tablet [Renate] ORAL fexofenadine hydrochloride 60 MG Oral Tablet [Renate]Original Medicationfexofenadine hydrochloride 60 MG Oral Tablet [Renate] *Reorder from [facility] for eRx and Interaction Alerts* 01/01/2012 Active gabapentin 300 MG Oral Capsule [Neurontin] ORAL gabapentin 300 MG Oral Capsule [Neurontin]Original Medicationgabapentin 300 MG Oral Capsule [Neurontin] *Reorder from [facility] for eRx and Interaction Alerts* 02/03/2012 Active Gabapentin 100 MG Oral Capsule ORAL gabapentin 100 MG Oral CapsuleOriginal Medicationgabapentin 100 MG Oral Capsule *Reorder from [facility] for eRx and Interaction Alerts* 08/17/2014 Active aspirin 81 MG Delayed Release Oral Tablet ORAL aspirin 81 MG Delayed Release Oral TabletOriginal Medicationaspirin 81 MG Delayed Release Oral Tablet *Reorder from [facility] for eRx and Interaction Alerts* 09/08/2020 Active atorvastatin 10 MG Oral Tablet [Lipitor] ORAL atorvastatin 10 MG Oral Tablet [Lipitor]Original Medicationatorvastatin 10 MG Oral Tablet [Lipitor] *Reorder from [facility] for eRx and Interaction Alerts* 01/01/2012 Active urea 390 MG/ML Topical Cream CUTANEOUS urea 390 MG/ML Topical CreamOriginal Medicationurea 390 MG/ML Topical Cream *Reorder from [facility] for eRx and Interaction Alerts* 01/01/2012 Active Atenolol 100 MG Oral Tablet ORAL atenolol 100 MG Oral TabletOriginal Medicationatenolol 100 MG Oral Tablet *Reorder from [facility] for eRx and Interaction Alerts* 01/01/2012 Active Lisinopril 20 MG Oral Tablet ORAL lisinopril 20 MG Oral TabletOriginal Medicationlisinopril 20 MG Oral Tablet *Reorder from [facility] for eRx and Interaction Alerts* 08/17/2014 Active Naproxen 250 MG Oral Tablet ORAL naproxen 250 MG Oral TabletOriginal Medicationnaproxen 250 MG Oral Tablet *Reorder from [facility] for eRx and Interaction Alerts* 01/01/2012 Active Lisinopril 10 MG Oral Tablet ORAL lisinopril 10 MG Oral TabletOriginal Medicationlisinopril 10 MG Oral Tablet *Reorder from 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 NAIL DEBRIDEMENT: Nails 1-5 Bilateral were debrided extensively with nail nippers and emery board, reducing length and girth to pink healthy tissue with any subungual debris and necrotic tissue removed 11/22/2024 Pain in right toe(s) (ICD-10 - M79.674) 11/22/2024 Pain in left toe(s) (ICD-10 - M79.675) 11/22/2024 Atherosclerosis of penobscot arteries of extremities with intermittent claudication, bilateral [...] sooner if problems arise Provider Name:VIELKA BISWAS, 02:40:00 PM, [address], [address], [id number], Progress Notes * STEINERRODERICK SDOB: [birth year] (74 yo M)Acc No.[id number]:11/22/2024 Patient: RODERICK ROSADO Provider: Alea Biswas DPM :1950 A ge:74 Y S ex:Male Date:11/22/2024 Address:[address] [place], [place] [id number] Pcp:Huber Culp Subjective: * Chief Complaints: * [...] Patient denies being diabetic., Patient denies taking blood thinners., Date last seen by Dr. Culp was 07/2024., Initials mf. sample. * ROS: G eneral / Constitutional: [...] Medicationatenolol 100 MG Oral Tablet *Reorder from [facility] for eRx and Interaction Alerts*, Taking Lisinopril 20 MG Oral Tablet ORAL , Notes to Pharmacist: lisinopril 20 MG Oral TabletOriginal Medicationlisinopril 20 MG Oral Tablet *Reorder from [facility] for eRx and Interaction Alerts*, Taking Naproxen 250 MG Oral Tablet ORAL , Notes to Pharmacist: naproxen 250 MG Oral TabletOriginal Medicationnaproxen 250 MG Oral Tablet *Reorder from [facility] for eRx and Interaction Alerts*, Taking Lisinopril 10 MG Oral Tablet ORAL , Notes to Pharmacist: lisinopril 10 MG Oral TabletOriginal Medicationlisinopril 10 MG Oral Tablet *Reorder from [facility] for eRx and Interaction Alerts*, Taking Gabapentin 100 MG Oral Capsule ORAL , Notes to Pharmacist: gabapentin 100 MG Oral CapsuleOriginal Medicationgabapentin 100 MG Oral Capsule *Reorder from [facility] for eRx and Interaction Alerts*, Taking aspirin 81 MG Delayed Release Oral Tablet ORAL , Notes to Pharmacist: aspirin 81 MG Delayed Release Oral TabletOriginal Medicationaspirin 81 MG Delayed Release Oral Tablet *Reorder from [facility] for eRx and Interaction Alerts*, Taking atorvastatin 10 MG Oral Tablet [Lipitor] ORAL , Notes to Pharmacist: atorvastatin 10 MG Oral Tablet [Lipitor]Original Medicationatorvastatin 10 MG Oral Tablet [Lipitor] *Reorder from [facility] for eRx and Interaction Alerts*, Taking fexofenadine hydrochloride 60 MG Oral Tablet [Renate] ORAL , Notes to Pharmacist: fexofenadine hydrochloride 60 MG Oral Tablet [Renate]Original Medicationfexofenadine hydrochloride 60 MG Oral Tablet [Renate] *Reorder from [facility] for eRx and Interaction Alerts*, Taking gabapentin 300 MG Oral Capsule [Neurontin] ORAL , Notes to Pharmacist: gabapentin 300 MG Oral Capsule [Neurontin]Original Medicationgabapentin 300 MG Oral Capsule [Neurontin] *Reorder from [facility] for eRx and Interaction Alerts*, Taking urea 390 MG/ML Topical Cream CUTANEOUS , Notes to Pharmacist: urea 390 MG/ML Topical CreamOriginal Medicationurea 390 MG/ML Topical Cream *Reorder from [facility] for eRx and Interaction Alerts*, Medication List reviewed and reconciled with the patient Objective: * Vitals: S hoe Size: 12, Wt:260lbs, Wt-k.94 kg, Ht: 72.0 in, Ht-cm: 182.88 cm, BMI:35.26Index, Body Surface Area: 2.45. * Examination: C onstitutional: Constitutional T he [...] extremities. ? Assessment: * Assessment: 1. T tanjaa unguium - B35.1 (Primary) 2 . P ain in right toe(s) - M79.674? 3. P ain in left toe(s) - M79.675 4 . A therosclerosis of penobscot arteries of extremities with intermittent claudication, bilateral legs - I70.213 Plan: * Treatment: * Preventive Medicine: Screenings: F all risk screening F all Risk Assessment: N o falls in the past year. * Follow Up: 1 0-12 Weeks (Reason: At Risk Foot care, sooner if problems arise) * Billing Information: * Visit Code: 55253 Office Visit, Est Pt., Level 3. * Procedure Codes: * Electronic signature of VIELKA BISWAS DPM on 12/30/2024 at 01:15 AM CDT Sign off status: Pending * Provider: Alea Biswas DPM Date: 0 11/22/2024 Generated for Niko linares/Vishnu/Dexter on: 1 01:15 AM CDT History and Physical Notes * HPI (History of Present Illness) Category Sub-Category Detail Notes Category Not es HPI General care Patient presents to the office for at risk foot care. Patient states that their nails are thickened, elongated and painful. Patient states that it is aggravated by shoe gear. Onset is gradual. Patient denies being diabetic., Patient denies taking blood thinners., Date last seen by Dr. Culp was 07/2024., Initials mf sample Examination Category Sub-Category Detail Notes Category [...]
[2024-12-08 14:04] VITALS: BP 109/60; PULSE 74; RESP 14; TEMP 36.2; O2SAT 98; BMI 35.4
--- NOTE | 2024-12-08 14:20 | PC.NURSE ---
Report to the Outpatient Waiting Room, entrance under the green pavilion located off [facility], at time _06:00am on date __12/30/24 . Planned Procedure Time: _07:30am .? Time changes happen often and if your time is changed the preop area will call you the afternoon before. - You and your visitor will be asked to self-screen and do not enter if you have any COVID symptoms. Please call surgeon if you need to reschedule. - A mask is optional within the hospital at this time. Patients may have clear liquids (water, carbonated beverages, clear teas, apple juice) until 3 hours prior to surgery with a maximum of 20 ounces. - No food from midnight until time of surgery and no smoking, or chewing tobacco (or any form of nicotine). No chewing gum, candy or mints. (04:30am) Take only the following medications with a SIP of water on the morning of surgery: Atenolol & Gabapentin, Tylenol if needed DO NOT STOP ANY OF YOUR OTHER PRESCRIPTION MEDICATIONS PRIOR TO SURGERY EXCEPT THE FOLLOWING Hold all vitamins and supplements for 3 days per anesthesiologist. Medications to discontinue per physician Aspirin for [address] Cabrera Date to take last dose 12/22/24 HOLD the Zepbound for 10 days prior, last dose is 12/15/24. Please no make-up, nail citizen of [place], hairspray, perfume, deodorant, or body powder the day of surgery.? No jewelry (including any body piercings) or valuables the day of surgery, leave them at home.? Please take a shower or bath the night before, or the morning of, surgery with an antibacterial soap.? Wear comfortable, loose fitting clothing.? - Jewelry must be removed prior to entering the operating room.? Rings and piercings that are not removed may be cut off. - The hospital will not accept responsibility for valuables.? - Please leave all valuables, including medications, at home the day of surgery. If you are going home after surgery, a licensed customer service driver must drive you home.? - NO public transportation without another adult if you receive anesthesia. - We recommend that an adult stay with you for 24 hours following discharge. - We also recommend that you do not drive, make important decision, drink alcoholic beverages, or take any drugs that were not prescribed by your health care provider for at least 24 hours after your discharge time. Follow any additional instructions given to you from your surgeon. Telephone instructions given to ___Pt and and asked if any additional questions and then verbalized understanding. Patient advised to call surgeon office or pre surgery nurse liaison [phone] if any additional questions.
[2024-12-30] VITALS (12 sets, daily range): BP systolic 101–139; BP diastolic 56–68; PULSE 61–71; RESP 10–20; TEMP 36.3–36.6; O2SAT 99–100; BMI 35.8
--- NOTE | ~2024-12-30 | XR_ITS ---
EXAMINATION: [id number] DATE: 12/30/2024 09:58 INDICATION: Postoperative evaluation following left total knee arthroplasty. TECHNIQUE: Anteroposterior and lateral views of the left knee were obtained. COMPARISON: None. FINDINGS: Left total knee arthroplasty with patellar resurfacing appears well seated and in near anatomic alignment. No fractures identified. Expected postoperative subcutaneous and intra-articular gas. IMPRESSION: 1. Left total knee arthroplasty, negative for postoperative purposes. Reviewed, dictated and finalized at location A.
--- OUTSIDE RECORDS SUMMARY | 2024-12-30 01:16 | XMS_ITS | Encounter Summary ---
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
--- OUTSIDE RECORDS SUMMARY | 2024-12-30 01:16 | XMS_ITS | Clinical Summary ---
Author Organization [facility] [address] Address [address] [place] [address] Care Team Providers Care End Packer Name Role Phone Huber Culp MD Primary [...] Type Department Care Team Description 10/14/2024 Telephone [facility] Cardiology [address] [facility] [facility] [address] [place] [address] Kyaw Tomlinson MD Surgical Clearance (Left Total Knee Arthroplasty) from Last 3 Months Social History Tobacco Use Types Packs/Day Years Used Date Smoking Tobacco: Never Smokeless Tobacco: Never Tobacco Cessation:Counseling Given: Not Answered Sex and Gender Information Value Date Recorded Sex Assigned at Not on file 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 Gender Identity Not on file Sexual Orientation [...] Visit 65+ 11/15/2016 Influenza Vaccine (#1) 2024 , 06/08/2019, 12/24/2017, Additional history exists DTaP/Tdap/Td Vaccine (2 - Td or Tdap) 09/17/2032 09/17/2022, 12/08/2018 Pneumococcal vaccine 65+ Completed 021, 12/24/2017, 12/24/2017 Zoster Vaccine Completed 08/29/2020, 01/29, 03/31/2013 Insurance [employer] CHOICE MEDICARE O MEDICARE FOR LIFE FOR LIFE [employer] CHOICE MEDICARE PPO Care Teams End Packer Relationship Specialty Start Date End Date Huber Culp MD [address] [facility] [address] [place] [address] PCP - General Family Medicine 12/08/17
--- OUTSIDE RECORDS SUMMARY | 2024-12-30 01:16 | XMS_ITS | Encounter Summary ---
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
--- OUTSIDE RECORDS SUMMARY | 2024-12-30 01:16 | XMS_ITS | Encounter Summary ---
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 [address] [place] [address] PCP - General Family Medicine 12/08/17 documented as of this encounter
[2024-12-30] MEDS: TRANEXAMIC ACID 1,000MG/ISO100 1,000 MG/100 ML BAG 200 MG IVPB (07:00)
[2024-12-30] MEDS: LACTATED RINGERS 1,000 ML 30 ML IV CONT ×2 (07:00→09:34)
[2024-12-30] MEDS: ACETAMINOPHEN 500 MG TABLET 1000 MG PO (07:06)
[2024-12-30 07:12] LABS: Sodium 130 mmol/L (137-145)
--- NOTE | 2024-12-30 07:14 | WPDHPUPDATE1 ---
History and Physical Update Update Date/Time: 12/30/24 07:14 History and Physical has been reviewed, including an updated exam of the patient. There are NO changes in the patient's condition. Risks, benefits, and alternatives have been discussed and questions answered. Patient agrees to proceed with procedure.
--- NOTE | 2024-12-30 07:19 | P.PNAN_ITS ---
Anes - Initial Pre Proc Eval Procedure: Operation Date: 12/30/24 07:30 Proposed Procedures p Left Custom Total Knee Arthroplasty - Tariq Cabrera MD Date/Time: 12/30/24 07:19 Surgeon: Tariq Cabrera MD Pre Op Diagnosis: prim OA Lt Knee Patient Data Age: 74 Gender: M Height: 1.82 m Weight: 116.8 kg Last Vital Signs Temp 97.4 F L 12/30/24 06:05 Pulse 71 12/30/24 06:05 Resp 16 12/30/24 06:05 BP 128/62 12/30/24 06:05 Pulse Ox 99 12/30/24 06:05 O2 Del Method Room Air 12/30/24 06:05 Allergies Allergy/AdvReac Type Severity Reaction Status Date / Time No Known Allergies Allergy Verified 12/30/24 06:26 Home Medications ?Medication ?Instructions ?Recorded ?Confirmed ?Type aspirin 81 mg tablet,delayed 81 mg PO DAILY 02/24/19 1 History release hydrochlorothiazide 25 mg tablet 12.5 mg PO DAILY 06/3012/30/24 History atorvastatin 40 mg tablet 40 mg PO DAILY 01/27/2405/25 History lisinopril 30 mg tablet 30 mg PO DAILY #90 tabs 12/2212/30/24 Rx atenolol 25 mg tablet 25 mg PO DAILY #90 tabs 03/0112/30/24 Rx pantoprazole 40 mg tablet,delayed 40 mg PO DAILY #90 t abs 08/02/24 12/30/24 Rx release tirzepatide (weight loss) 5 mg/0.5 5 mg (0.5 mL) subcu t WEEKLY #2 mL 08/25/24 12/08/24 Rx mL subcutaneous pen injector fenofibrate 160 mg tablet See Rx Instructions .Route 0 09/06/24 12/30/24 Rx .COMPLEX #90 tabs ferrous sulfate 325 mg (65 mg See Rx Instructions .Rou te 10/25/24 12/08/24 Rx iron) tablet (FeroSul) .COMPLEX #60 tabs gabapentin 300 mg capsule 300 mg PO TID PRN neuropathy #270 11/10/24 12/08/24 Rx caps loratadine 10 mg tablet See Rx Instructions .Route 0 11/30/24 12/30/24 Rx .COMPLEX #90 tabs zolpidem 12.5 mg tablet,extended 12.5 mg PO QHS #30 ta bs 12/27/24 12/30/24 Rx release,multiphase aspirin 81 mg tablet,delayed 81 mg PO BID 14 days #28 tabs 12/30/24 Rx release oxycodone-acetaminophen 5 mg-325 1 - 2 tablet PO Q4-6H PRN pain 7 12/30/24 Rx mg tablet days #30 tabs prednisone 5 mg tablet 5 mg PO DAILY 3 weeks #21 ta bs 12/30/24 Rx Laboratory Tests 12/30/24 06:51 Sodium 130 L mmol/L (137-145) Patient hx anesthesia problems: none Family hx anesthesia problems: none Results Review: All pre-operative results and documents have been reviewed as part of the pre- operative evaluation. [facility] Past Medical History Medical History CKD (chronic kidney disease) Thoracic aortic aneurysm (TAA) Hypertension Obstructive sleep apnea on CPAP Impaired fasting glucose Ischemic colitis Obesity Osteoarthritis of left knee Mixed hyperlipidemia Metabolic syndrome History of rectal polyps Essential (primary) hypertension Chronic right-sided low back pain with right-sided sciatica Chronic insomnia Surgical History Surgical History Status post total knee replacement, right (~05/18/24) Custom TKA History of cataract extraction with lens replacement History of arthroscopy of right knee History of hand surgery History of retinal tear Family History Family History Father Hypertension Family history of malignant neoplasm Mother Hypertension Family history of malignant neoplasm Social History Social History Social History: Surrogate medical decision maker: Yaritzamargarita Joshi, spouse. Code status: Full code. Smoking status: Never smoker Second hand tobacco smoke exposure: No Alcohol intake: former Alcohol use details: Occasionally Substance use: never Substance use type: does not use Do You Feel Safe in your Home?: Yes Lack of Transportation: No Lack of Food: Never True Current Housing: I Have Housing Concerned About Future Housing: No Difficulty Paying Gas/Electric Bills: No Difficulty Paying for Meds: No Currently Unemployed: No Education: Bachelor's Degree Difficulty w/ Childcare or Family Care: No Living arrangements: with family Additional living arrangements comments: 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: No Anes - Eval Final PreProcedure Day of Procedure 12/30/24 07:19 Patient weight: obese Heart: regular rate and rhythm Lungs: clear to auscultation Airway: Mallampati scale class II Neurological: alert and oriented Last oral intake: >/= 8 hours ASA classification: III Emergent: no Anesthetic plan: proceed Anesthesia type and monitoring: general LMA and standard monitoring Results Review: All pre-operative results and documents have been reviewed as part of the pre- operative evaluation. Informed Consent: The patient's anesthetic plan and its attendant risks and benefits were discussed with the patient/family/POA. Questions were solicited and answers provided to the satisfaction of the patient/family/POA.
[2024-12-30] MEDS: ceFAZolin 2 GM in SODIUM CHLORIDE 0.9% IV 50 ML 100 ML IVPB (07:26)
[2024-12-30] MEDS: SODIUM CHLORIDE 0.9% IV 37.7 ML, MORPHINE SULFATE INJ (*CRX) 2 MG, ROPivacaine HCL 1% 2... INFILTRATE (08:06)
--- NOTE | 2024-12-30 09:46 | W.PM.PROC2 ---
Procedure Note - Detailed Date of Procedure 12/30/24 Pre-op Diagnosis Left knee degenerative arthritis. Post-op Diagnosis Same Procedure Performed Custom total knee arthroplasty, left. Surgeon Tariq Cabrera MD Senior Clerk Liseth Yoon PA-C Anesthesia General Findings Excellent bone quality. Required +4 tibia resection. Mild posterior medial capsule release due to 15 degree preoperative flexion contracture. Partial PCL release. Description of Procedure Preoperative antibiotics were given. The limb was prepped and draped in the usual sterile fashion with a well-padded tourniquet high on the thigh. The limb was exsanguinated and the tourniquet inflated to 300 mmHg during exposure and closure. A longitudinal incision was created just medial to the patella. A trivector approach to the knee was performed. Arthrotomy was taken down through the joint capsule. No significant releases were initially taken. The femur was exposed and the F1 jig was applied. The coring tool was used to remove the cartilage for the F2 jig to sit flush with the bone. The jig was pinned and the distal cut carefully taken. Caliper measurements confirmed appropriate bony resections according to the preoperative templated plan. The F4 cutting jig for the femur was applied, at the standard rotation. The AP and anterior chamfer cuts were taken. The F5 jig was applied and the posterior chamfer cuts were taken. The tibia was prepared using the T1 jig, after removing cartilage for the jig contact points. Proper alignment was checked with the alignment porfirio. The tibia was cut using the T1u guide. Gap balancing was performed. Gap measurements were taken and the knee was trialed. Excellent alignment and soft tissue balancing was confirmed. The posterior cruciate ligament was recessed along the proximal tibia. The patella was cut for resurfacing. Three lug holes were drilled. Meniscal remnants were removed. The trial components were assembled. Excellent range of motion and proper soft tissue balancing were confirmed throughout the full range of motion. Patellar tracking was excellent. The knee was copiously irrigated periodically throughout the procedure. The real implants were cemented into position. Excess cement was carefully removed. The wound was closed in layers with interrupted #1 Vicryl suture, 2-0 strata fix suture, 0 strata fix suture, 2-0 strata fix suture. Steri-Strips placed on the skin with the knee flexed. Sterile bulky dressing applied. The patient was brought to the recovery room in stable condition. There were no complications. Physician assistant merchandise manager, Liseth Yoon PA-C, required for surgery; including patient positioning, draping, tissue retraction, maintaining instrument position, cement removal, wound closure, and dressing placement. Implants Conformis Custom total knee arthroplasty. Cemented. Cruciate retaining. 7B insert. 41 mm oval patella. Estimated Blood Loss 200 Drains No Complications No immediate complications Condition Stable Disposition PACU [facility] Billing Surgery - Charge Forward: Surgery Billing
[2024-12-30] MEDS: fentaNYL CITRATE INJ (*CRX) 100 MCG/2 ML VIAL 25 MCG IV PUSH ×8 (10:06→10:38)
[2024-12-30] MEDS: oxyCODONE HCL (*CRX) 5 MG TAB IR PO (11:10)
== END 2024-12-30 13:00 | disposition home or self-care (01) ==
PROVIDERS: Anesthesiology; PCP Family Medicine; Visit Provider Orthopaedic Surgery
PROC: (CPT 27447; principal; 2024-12-30 07:30)
DX: M17.12 Unilateral primary osteoarthritis, left knee (principal); E66.9 Obesity, unspecified; Z68.35 Body mass index [BMI] 35.0-35.9, adult
CPT/HCPCS: 27447; 36415; 73560; 84295; 86850; 86900; 86901; 97110; 97161; 97165; J0690; A9270; C1713; C1776; J0166; J1100; J1171; J1885; J2003; J2270; J2390; J2405; J2704; J2795; J3010; J3290; J7120